=== PATIENT | male | born 1940 | race Caucasian/White ===

== ENCOUNTER 2020-08-17 11:25 | Emergency (ER) | payer MEDICARE, SELFPAY ==
[2020-08-17] VITALS (10 sets, daily range): BP systolic 141–194; BP diastolic 66–93; PULSE 61–90; RESP 14; TEMP 37.2; O2SAT 94–97
--- NOTE | 2020-08-17 12:02 | ED.HA ---
HPI - Headache General Chief Complaint: Headache Stated Complaint: lump in head Time Seen by Provider: 08/17/20 11:28 Source: patient and family Mode of arrival: Ambulatory Limitations: no limitations History of Present Illness HPI Narrative: 79M former smoker with history of renal cancer s/p nephrectomy 8-9 years ago presents with a mild ZUÑIGA and a painful lump on the back of his head for the past few days. The ZUÑIGA just started today, but the lump has been increasing in size over the past week or so. He denies any injury whatsoever in takes no blood thinners. He denies neurologic symptoms such as blurred vision, trouble with speech, balance, numbness, tingling or weakness of his extremities. He denies any specific provocation, palliation of his headache. He has taken no medications. MD Complaint: headache Onset (ago): hour(s) Onset description: gradual Location: diffuse Severity: moderate Quality: aching Relieving factors: nothing Exacerbating factors: none Context: occurred at rest Associated symptoms: none Treatments prior to arrival: none Related Data Allergies Allergy/AdvReac Type Severity Reaction Status Date / Time No Known Drug Allergies Allergy Verified 08/17/20 11:49 Review of Systems Constitutional Constitutional: Denies chills, Denies fatigue, Denies fever(s), Denies frequent falls, Reports headache(s), Denies lethargy and Denies weakness Eyes Eyes: Denies change in vision, Denies eye discharge, Denies irritation and Denies loss of vision ENT Ears, Nose, Mouth, and Throat: Denies change in voice, Denies dizziness, Reports headache(s), Denies neck pain, Denies sore throat and Denies throat swelling Cardiovascular Cardiovascular: Denies chest pain, Denies irregular heart rhythm, Denies lightheadedness, Denies palpitations, Denies dyspnea, Denies dyspnea on exertion and Denies orthopnea Respiratory Respiratory: Denies cough, Denies dyspnea, Denies dyspnea on exertion and Denies wheezing Gastrointestinal Gastrointestinal: Denies abdominal pain, Denies change in bowel habits, Denies diarrhea, Denies nausea and Denies vomiting Musculoskeletal Musculoskeletal: Denies neck pain and Denies numbness Integumentary/Breasts Skin/Breast: Denies pruritus, Denies erythema, Denies rash and Denies wounds Neurologic Neurologic: Denies behavioral changes, Denies confusion, Denies dizziness, Denies frequent falls, Reports headache(s), Denies loss of vision, Denies numbness and Denies weakness Psychiatric Psychiatric: Denies anxiety, Denies behavioral changes, Denies confusion, Denies depression, Denies homicidal ideation and Denies suicidal ideation Endocrine Endocrine: Denies fatigue, Denies flushing and Denies palpitations Hematologic/Lymphatic Hematologic/Lymphatic: Denies easy bruising Allergic/Immunologic Allergic/Immunologic: Denies urticaria, Denies throat swelling and Denies wheezing Patient History Social History Smoking Status: Former smoker Smoking Status: Former smoker alcohol intake frequency: 0-2 drinks per day Substance Use Type: does not use Exam Narrative Exam Narrative: [id number] year old patient appears stated age. Well-nourished, well-developed patient, in mild distress. HEAD: Atraumatic. Subtle lump on right occiput put, no erythema, fluctuance or induration EYES: Pupils equal round and reactive. Extraocular motions intact. No scleral icterus. No injection or drainage. ENT: Nose without bleeding, purulent drainage. Throat without erythema, tonsillar hypertrophy or exudate. Airway patent. NECK: Trachea midline. Non tender CARDIOVASCULAR: Regular rate and rhythm without murmurs, gallops, or rubs. RESPIRATORY: Clear to auscultation. Breath sounds equal bilaterally. No wheezes, rales, or rhonchi. GASTROINTESTINAL: Abdomen soft, non-tender, nondistended. EXTREMITIES: No edema or joint tenderness. BACK: Nontender without deformity or crepitance. No flank tenderness. NEURO: AOx3. SKIN: No rash or erythema of visible areas Initial Vital Signs Initial Vital Signs: Vital Signs Temperature 98.9 F 08/17/20 11:45 Pulse Rate 90 08/17/20 11:45 Respiratory Rate 14 08/17/20 11:45 Blood Pressure 162/76 H 08/17/20 11:45 Pulse Oximetry 97 08/17/20 11:45 Course Course Course Narrative: 1430 - call to Medical Oncology. Recommend consultation with surgery to obtain biopsy 1435 - call to Gen. Surgery (Horacio). No skull biopsy 1440 - call to IR at [facility]. Viewed images, they will not do this biopsy, recommend call to Neurosurgery 1500 - Prov Neurosurgery has viewed images and states this would go to IR and recommends transfer to their ED for multisystem approach to diagnosis 1530 - call to [facility] Medicine. No indication for transfer/admission, few beds remain. Recommends call to Medical Oncology 1610 - call back to Medical Oncology at [facility] ([facility]) and he will accept patient as referral, recommends DC with contact info Orders Ordered: ED Orders 08/17/20 12:21 CT head/brain wo con Stat 08/17/20 12:58 CT chest abd pel w con Stat 08/17/20 13:05 Complete Blood Count AUTO DIFF Stat Comprehensive Metabolic Panel Stat 08/17/20 14:10 Urine Microscopic Stat 08/17/20 16:14 COVID19 -Nasal swab/Pre-Proc Stat Discontinued Medications Sodium Chloride (Normal Saline 0.9%) 1,000 mls @ 125 mls/hr IV CONT ABRIL Last Infusion: 08/17/20 16:30 Dose: 0 mls/hr Documented by: Admin: 08/17/20 13:45 Dose: 125 mls/hr Documented by: GIACOMO Vital Signs Vital signs: Vital Signs - 8 hr 08/17/20 11:45 08/17/20 13:10 08/17/20 13:30 Temperature 98.9 F Pulse Rate 90 68 61 Respiratory Rate 14 14 Blood Pressure 162/76 H 141/66 H Pulse Oximetry 97 96 94 08/17/20 14:10 08/17/20 14:30 08/17/20 14:44 Temperature Pulse Rate 73 68 68 Respiratory Rate 14 Blood Pressure 194/90 H 176/84 H 190/93 H Pulse Oximetry 96 97 96 08/17/20 15:00 08/17/20 15:30 08/17/20 16:00 Temperature Pulse Rate 63 62 66 Respiratory Rate Blood Pressure 189/85 H Pulse Oximetry 94 96 96 08/17/20 16:01 Temperature Pulse Rate 63 Respiratory Rate Blood Pressure 172/84 H Pulse Oximetry 96 MDM - Headache Lab Data Result diagrams: 08/17/20 13:05 08/17/20 13:05 Labs: Lab Results 08/17/20 08/17/20 08/17/20 Range/Units 13:05 13:05 14:10 WBC 8.8 (4.5-11.0) X10^3/uL RBC 4.63 (4.5-5.9) X10^6/uL Hgb 13.8 (13.5-17.5) g/dL Hct 41.5 (41-53) % MCV 89.7 (80-100) fL MCH 29.8 (26-34) PG MCHC 33.3 (30-36) % RDW 13.2 (11.6-14.8) % Plt Count 300 (150-400) X10^3/uL Neut % (Auto) 58.5 (50-75) % Lymph % (Auto) 22.1 L (25-40) % [place] % (Auto) 15.8 H (3-14) % Eos % (Auto) 2.8 (2-4) % Baso % (Auto) 0.8 (0-2) % Neut # (Auto) 5100 (7150-2450) /uL Lymph # (Auto) 1900 (2929-5111) /uL [place] # (Auto) 1400 H (0-900) /uL Eos # (Auto) 200 (0-450) /uL Baso # (Auto) 100 (0-100) /uL Sodium 137 (137-145) mmol/L Potassium 4.2 (3.4-5.1) mmol/L Chloride 101 (98-107) mmol/L Carbon Dioxide 28 (22-32) mmol/L BUN 26 H (9-20) mg/dL Creatinine 1.11 (0.66-1.25) mg/dL Estimated GFR > 60.0 (>60) mL/min BUN/Creatinine Ratio 23.4 H (6-22) Glucose 172 H (80-110) mg/dL Calcium 11.1 H (8.4-10.2) mg/dL Total Bilirubin 0.4 (0.2-1.3) mg/dL AST 42 (17-59) IU/L ALT 28 (<50) IU/L Alkaline Phosphatase 86 (38-126) U/L Total Protein 8.9 H (6.3-8.2) g/dL Albumin 4.1 (3.5-5.0) g/dL Globulin 4.8 H (1.7-4.1) g/dL Albumin/Globulin Ratio 0.9 L (1.0-2.8) Urine RBC 0-1/hpf (0-5/HPF) Urine WBC None seen (0-5/HPF) Calcium Oxalate Crystal Few H Urine Bacteria Occasional (0-1) (None) Ur Culture Indicated? Cult not indicated SARS-CoV-2 (PCR) (Negative) 08/17/20 Range/Units 16:14 WBC (4.5-11.0) X10^3/uL RBC (4.5-5.9) X10^6/uL Hgb (13.5-17.5) g/dL Hct (41-53) % MCV (80-100) fL MCH (26-34) PG MCHC (30-36) % RDW (11.6-14.8) % Plt Count (150-400) X10^3/uL Neut % (Auto) (50-75) % Lymph % (Auto) (25-40) % [place] % (Auto) (3-14) % Eos % (Auto) (2-4) % Baso % (Auto) (0-2) % Neut # (Auto) (3744-0460) /uL Lymph # (Auto) (8460-6869) /uL [place] # (Auto) (0-900) /uL Eos # (Auto) (0-450) /uL Baso # (Auto) (0-100) /uL Sodium (137-145) mmol/L Potassium (3.4-5.1) mmol/L Chloride (98-107) mmol/L Carbon Dioxide (22-32) mmol/L BUN (9-20) mg/dL Creatinine (0.66-1.25) mg/dL Estimated GFR (>60) mL/min BUN/Creatinine Ratio (6-22) Glucose (80-110) mg/dL Calcium (8.4-10.2) mg/dL Total Bilirubin (0.2-1.3) mg/dL AST (17-59) IU/L ALT (<50) IU/L Alkaline Phosphatase (38-126) U/L Total Protein (6.3-8.2) g/dL Albumin (3.5-5.0) g/dL Globulin (1.7-4.1) g/dL Albumin/Globulin Ratio (1.0-2.8) Urine RBC (0-5/HPF) Urine WBC (0-5/HPF) Calcium Oxalate Crystal Urine Bacteria (None) Ur Culture Indicated? SARS-CoV-2 (PCR) Negative (Negative) Urine Dip Bedside Urine Glucose Negative Bedside Urine Bilirubin - Negative Bedside Urine Ketone - Negative Urine Specific [place] 1.020 Bedside Urine Occult Blood +/- Bedside Urine pH 6 Bedside Urine Protein + 30 Bedside Urine Urobilinogen - Negative Bedside Urine Nitrite - Negative Bedside Urine Leukocytes - Negative Esterase Imaging Data CT scan - head: Radiologist's Impression: Chart Viewer Diagnostics DATE TYPE STATUS REF RANGE/AUTHOR Hx Today 12:58 Riley Rodriguez Today 12:21 Rachelle Hernandez Thomas 79, M1940 [facility], Main ED R01 112.491kg Headache Search Chart No Data to Display No Data to Display No Data to Display Today 14:10 Nicanor Mccarthy M [address] Scan ReportSigned Patient: Nicanor MccarthyMR#: [id number]: 1940cct:[id number]/Sex: 79 / MDate of Service: 08/17/20Loc: EDAccession Number: [id number] Procedure: CT head/brain wo con Ordering Provider: Stephen Bruno D.O. PROCEDURE: CT HEAD/BRAIN WO CON INDICATIONS: head lump TECHNIQUE: Noncontrast 4.5 mm thick angled axial sections acquired from the foramen magnum to the vertex, with coronal and sagittal reformats. For radiation dose reduction, the following was used: automated exposure control, adjustment of mA and/or kV according to patient size. COMPARISON: None. FINDINGS: Image quality: Excellent. CSF spaces: Basal cisterns are patent. No extra-axial fluid collections. The ventricles are symmetric in size and shape. Brain: No intracranial bleeds or masses. There is cerebral volume loss for age, with resultant ventricular and sulcal prominence. There are periventricular and deep white matter chronic small vessel ischemic changes. There is intracranial internal carotid artery and vertebral artery atherosclerosis. Skull and face: There is a 3.4 x 7.0 centimeter enhancing mass involving the right occipital bone with associated osteolysis and periosteal reaction . Multiple lytic lesions are scattered throughout the calvarium. Lesion extends into the intracranial cavity and produces mild mass effect on the posterior-lateral right occipital lobe. Sinuses: Visualized sinuses and mastoids are clear. IMPRESSION: 1. 3.4 x 7.0 centimeter lytic right occipital bone mass with associated periosteal reaction corresponds to clinically palpable lump. Multiple small lytic lesions are scattered throughout the care of the area. 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 2. Right occipital bone mass extends into the intracranial cavity and produces mild mass effect on the right occipital lobe. Dictated by: Rachelle Hernandez MD, PhD on 08/17/2020 at 12:30 Approved by: Rachelle Hernandez MD, PhD on 08/17/2020 at 12:36 CT scan - chest: Radiologist's Impression: [address] [id number] Scan ReportSigned Patient: Nicanor MccarthyMR#: [id number]: 1940cct:[id number]/Sex: 79 / MDate of Service: 08/17/20Loc: EDAccession Number: [id number] Procedure: CT chest abd pel w con Ordering Provider: Stephen Bruno D.O. PROCEDURE: CT CHEST ABD PEL W CON INDICATIONS: possible metastatic disease TECHNIQUE: After the administration of intravenous contrast, 5 mm thick sections acquired from the lung apices to the symphysis. 5 mm coronal and sagittal reformats were performed, with additional 7 mm MIP reformats through the lungs. For radiation dose reduction, the following was used: automated exposure control, adjustment of mA and/or kV according to patient size. COMPARISON: [facility], CT, CT HEAD/BRAIN WO CON, 08/17/2020, 12:25. FINDINGS: Image quality: Excellent. CHEST: Lungs and pleura: There are multiple lung nodules bilaterally. Systems Coordinator nodules are listed in the following: Nodule 1: 5 mm; lingula; series 2, image 173. Nodule 2: 10 mm; lingula; series 2, image 176. Nodule 3: 5 mm; RML; series 2, image 177. Nodule 4: 6 mm; RLL; series 2, image 183. Nodule 5: 6 mm; LLL; series 2, image 233. Moderate emphysema. No acute airspace opacities. No pleural effusions or pneumothorax. Central and peripheral airways appear patent and normal in caliber. Mediastinum: Heart size is normal. Moderate coronary artery calcification. No pericardial effusion. Borderline sized mediastinal lymph nodes are noted. For example, there is a 1.0 by 1.4 cm left paratracheal lymph node above the aortic arch. Thoracic aorta and central pulmonary arteries are normal in size. Esophagus is normal in caliber. Small hiatal hernia. Chest wall: No axillary or supraclavicular adenopathy by size criteria. Thyroid gland is normal. There is gynecomastia.. ABDOMEN: Solid organs: Mild hepatic steatosis. Liver is normal in size and enhancement. Gallbladder is normal. Biliary system is non dilated. Pancreas enhances normally. Spleen is normal in size and enhancement. There is left adrenal thickening. 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 Left kidney is normal size and enhancement, without hydronephrosis. There is a 4 mm stone in the superior pole of the left kidney. Peritoneum and bowel: There are numerous colonic diverticula. Mild stranding in sigmoid colon around a diverticulum, compatible with mild diverticulitis. No findings to suggest diverticular perforation or abscess. Bowel loops demonstrate normal wall thickness and caliber. No free fluid or air. Nodes and vessels: No retroperitoneal or mesenteric adenopathy by size criteria. Mild infrarenal abdominal aortic aneurysm measuring 4.2 cm in diameter. Mild atherosclerosis. Miscellaneous: No ventral hernias. PELVIS: Genitourinary: Bladder wall thickness is normal. Miscellaneous: No inguinal hernias or adenopathy. Bones: No suspicious bony lesions. There is a Schmorl's node in the inferior endplate of L1. Bilateral pars defects at L5. There is grade 1 anterolisthesis of L5 on S1. Severe degenerative disc disease at L5-S1. No vertebral body compression fractures. IMPRESSION: 1. There are multiple pulmonary nodules bilaterally. Differential diagnosis include metastatic disease, inflammatory or infectious nodules. In this patient with suspected metastatic disease, PET-CT may be helpful. 2. A borderline enlarged mediastinal lymph node is present, indeterminate. 3. Moderate emphysema. 4. Diverticulosis. There is mild diverticulitis of the sigmoid colon. 5. There is left adrenal thickening but no discrete mass. 6. Infrarenal abdominal aortic aneurysm measuring 4.2 cm. 7. Right nephrectomy and adrenalectomy. Dictated by: Julio Rodriguez M.D. on 08/17/2020 at 14:18 Approved by: Julio Rodriguez M.D. on 08/17/2020 at 14:41 Discharge Plan Departure Patient Disposition: Home Clinical Impression: Skull lesion Headache Qualifiers: Headache chronicity pattern: acute headache Intractability: not intractable Instructions: DI for Headache Activity Restrictions/Additional Instructions: *You have been diagnosed with [skull lesion concerning for metastatic disease.] *What to do: *Take medications as directed: Tylenol or Motrin for pain * please call medical oncology tomorrow morning, let them know that you were seen in the emergency department and I spoke with Dr. Gaitan who wants to see you and follow-up *Return to ER if you should have any new, worsening or concerning symptoms, such as [worsening headache, confusion, blurred vision, trouble with speech, balance or other bothersome symptoms] Referrals: Vince Gaitan MD [Physician] -
--- NOTE | 2020-08-17 12:21 | DI.CT.S_ITS ---
PROCEDURE: CT HEAD/BRAIN WO CON INDICATIONS: head lump TECHNIQUE: Noncontrast 4.5 mm thick angled axial sections acquired from the foramen magnum to the vertex, with coronal and sagittal reformats. For radiation dose reduction, the following was used: automated exposure control, adjustment of mA and/or kV according to patient size. COMPARISON: None. FINDINGS: Image quality: Excellent. CSF spaces: Basal cisterns are patent. No extra-axial fluid collections. The ventricles are symmetric in size and shape. Brain: No intracranial bleeds or masses. There is cerebral volume loss for age, with resultant ventricular and sulcal prominence. There are periventricular and deep white matter chronic small vessel ischemic changes. There is intracranial internal carotid artery and vertebral artery atherosclerosis. Skull and face: There is a 3.4 x 7.0 centimeter enhancing mass involving the right occipital bone with associated osteolysis and periosteal reaction . Multiple lytic lesions are scattered throughout the calvarium. Lesion extends into the intracranial cavity and produces mild mass effect on the posterior-lateral right occipital lobe. Sinuses: Visualized sinuses and mastoids are clear. IMPRESSION: 1. 3.4 x 7.0 centimeter lytic right occipital bone mass with associated periosteal reaction corresponds to clinically palpable lump. Multiple small lytic lesions are scattered throughout the care of the area. 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 2. Right occipital bone mass extends into the intracranial cavity and produces mild mass effect on the right occipital lobe. Dictated by: Rachelle Hernandez MD, PhD on 08/17/2020 at 12:30 Approved by: Rachelle Hernandez MD, PhD on 08/17/2020 at 12:36
--- NOTE | 2020-08-17 12:58 | DI.CT.S_ITS ---
PROCEDURE: CT CHEST ABD PEL W CON INDICATIONS: possible metastatic disease TECHNIQUE: After the administration of intravenous contrast, 5 mm thick sections acquired from the lung apices to the symphysis. 5 mm coronal and sagittal reformats were performed, with additional 7 mm MIP reformats through the lungs. For radiation dose reduction, the following was used: automated exposure control, adjustment of mA and/or kV according to patient size. COMPARISON: [facility], CT, CT HEAD/BRAIN WO CON, 08/17/2020, 12:25. FINDINGS: Image quality: Excellent. CHEST: Lungs and pleura: There are multiple lung nodules bilaterally. Welder Production Line Combination nodules are listed in the following: Nodule 1: 5 mm; lingula; series 2, image 173. Nodule 2: 10 mm; lingula; series 2, image 176. Nodule 3: 5 mm; RML; series 2, image 177. Nodule 4: 6 mm; RLL; series 2, image 183. Nodule 5: 6 mm; LLL; series 2, image 233. Moderate emphysema. No acute airspace opacities. No pleural effusions or pneumothorax. Central and peripheral airways appear patent and normal in caliber. Mediastinum: Heart size is normal. Moderate coronary artery calcification. No pericardial effusion. Borderline sized mediastinal lymph nodes are noted. For example, there is a 1.0 by 1.4 cm left paratracheal lymph node above the aortic arch. Thoracic aorta and central pulmonary arteries are normal in size. Esophagus is normal in caliber. Small hiatal hernia. Chest wall: No axillary or supraclavicular adenopathy by size criteria. Thyroid gland is normal. There is gynecomastia.. ABDOMEN: Solid organs: Mild hepatic steatosis. Liver is normal in size and enhancement. Gallbladder is normal. Biliary system is non dilated. Pancreas enhances normally. Spleen is normal in size and enhancement. There is left adrenal thickening. 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 Left kidney is normal size and enhancement, without hydronephrosis. There is a 4 mm stone in the superior pole of the left kidney. Peritoneum and bowel: There are numerous colonic diverticula. Mild stranding in sigmoid colon around a diverticulum, compatible with mild diverticulitis. No findings to suggest diverticular perforation or abscess. Bowel loops demonstrate normal wall thickness and caliber. No free fluid or air. Nodes and vessels: No retroperitoneal or mesenteric adenopathy by size criteria. Mild infrarenal abdominal aortic aneurysm measuring 4.2 cm in diameter. Mild atherosclerosis. Miscellaneous: No ventral hernias. PELVIS: Genitourinary: Bladder wall thickness is normal. Miscellaneous: No inguinal hernias or adenopathy. Bones: No suspicious bony lesions. There is a Schmorl's node in the inferior endplate of L1. Bilateral pars defects at L5. There is grade 1 anterolisthesis of L5 on S1. Severe degenerative disc disease at L5-S1. No vertebral body compression fractures. IMPRESSION: 1. There are multiple pulmonary nodules bilaterally. Differential diagnosis include metastatic disease, inflammatory or infectious nodules. In this patient with suspected metastatic disease, PET-CT may be helpful. 2. A borderline enlarged mediastinal lymph node is present, indeterminate. 3. Moderate emphysema. 4. Diverticulosis. There is mild diverticulitis of the sigmoid colon. 5. There is left adrenal thickening but no discrete mass. 6. Infrarenal abdominal aortic aneurysm measuring 4.2 cm. 7. Right nephrectomy and adrenalectomy. Dictated by: Julio Rodriguez M.D. on 08/17/2020 at 14:18 Approved by: Julio Rodriguez M.D. on 08/17/2020 at 14:41
[2020-08-17 13:19] LABS: Basophils Absolute Auto 100 /uL (0-100); Basophils Percent Auto 0.8 % (0-2); Hemoglobin 13.8 g/dL (13.5-17.5); Lymphocytes Absolute Auto 1900 /uL (1100-4500); Monocytes Absolute Auto 1400 /uL (0-900); White Blood Cell Count 8.8 X10^3/uL (4.5-11.0)
[2020-08-17 13:26] LABS: Add Manual Diff / Slide Review NO; Eosinophils Absolute Auto 200 /uL (0-450); Eosinophils Percent Auto 2.8 % (2-4); Hematocrit 41.5 % (41-53); Lymphocytes Percent Auto 22.1 % (25-40); Mean Corpuscular HGB Conc 33.3 % (30-36); Mean Corpuscular Hemoglobin 29.8 PG (26-34); Mean Corpuscular Volume 89.7 fL (80-100); Monocytes Percent Auto 15.8 % (3-14); Neutrophils Absolute Auto 5100 /uL (1500-7000); Neutrophils Percent Auto 58.5 % (50-75); Platelet Count 300 X10^3/uL (150-400); Red Blood Cell Count 4.63 X10^6/uL (4.5-5.9); Red Cell Distribution Width 13.2 % (11.6-14.8)
[2020-08-17 13:31] LABS: Alanine Aminotransferase 28 IU/L (<50); Albumin 4.1 g/dL (3.5-5.0); Albumin Globulin Ratio 0.9 (1.0-2.8); Alkaline Phosphatase 86 U/L (38-126); Aspartate Aminotransferase 42 IU/L (17-59); BUN Creatinine Ratio 23.4 (6-22); Bilirubin Total 0.4 mg/dL (0.2-1.3); Blood Urea Nitrogen 26 mg/dL (9-20); Calcium 11.1 mg/dL (8.4-10.2); Carbon Dioxide 28 mmol/L (22-32); Chloride 101 mmol/L (98-107); Estimated Glomerular Filt Rate > 60.0 mL/min (>60); Globulin 4.8 g/dL (1.7-4.1); Glucose 172 mg/dL (80-110); HEMOLYSIS 33 (0-50); Sodium 137 mmol/L (137-145); Total Protein 8.9 g/dL (6.3-8.2)
[2020-08-17 13:33] LABS: Potassium 4.2 mmol/L (3.4-5.1)
[2020-08-17] MEDS: SODIUM CHLORIDE 0.9% 1,000 ML 125 ML IV (13:45)
[2020-08-17 14:35] LABS: WBC Urine None Seen (0-5/HPF)
[2020-08-17 14:45] LABS: Bacteria Urine Occasional (0-1); Calcium Oxalate Crystals Urine Few; Culture Indicated Urine Cult Not Indicated; RBC Urine 0-1/HPF (0-5/HPF)
[2020-08-17 16:37] LABS: COVID19 -Nasal RAPID Negative (Negative)
--- NOTE | 2020-08-20 16:02 | PC.NURSE ---
Paty called the ED. Pt has been unable to get timely PCP appointment to arrange MRI for SCC / Neuro surgery and pending cancer care. I called call center and they arranged for appointment Sunday @ 1500 w/ Dr. Garcia. I called paty to relay and she verbalized time / date of appointment.
== END 2020-08-17 16:34 | disposition home or self-care (01) ==
PROVIDERS: Emergency Provider Emergency Medicine
DX: M89.9 Disorder of bone, unspecified (principal); R51.9 Headache, unspecified; Z20.828 Contact with and (suspected) exposure to other viral communicable diseases
CPT/HCPCS: 36415; 70450; 71260; 74177; 80053; 81003; 81015; 85025; 87635; 96360; 96361; 99284; C9803

== ENCOUNTER → 2020-08-24 16:13 | Outpatient (CLI) | payer MEDICARE, SELFPAY ==
[2020-08-24 17:38] LABS: BUN Creatinine Ratio 18.1 (6-22); Blood Urea Nitrogen 23 mg/dL (9-20); Calcium 12.1 mg/dL (8.4-10.2); Carbon Dioxide 27 mmol/L (22-32); Chloride 103 mmol/L (98-107); Glucose 108 mg/dL (80-110); HEMOLYSIS < 15 (0-50); Potassium 4.4 mmol/L (3.4-5.1); Sodium 139 mmol/L (137-145)
== END ==
PROVIDERS: PCP Internal Medicine; Referring Provider Internal Medicine; Visit Provider Internal Medicine
DX: E83.52 Hypercalcemia (principal)
CPT/HCPCS: 36415; 80048

== ENCOUNTER → 2020-08-25 06:40 | Outpatient (CLI) | payer MEDICARE, SELFPAY ==
--- NOTE | 2020-08-25 | DI.MRI.S_ITS ---
PROCEDURE: MR HEAD/BRAIN WO/W CON INDICATIONS: Personal history of other malignant neoplasm of ki TECHNIQUE: Noncontrast axial T1 spin echo, axial T2 fast spin echo, sagittal and axial FLAIR, coronal T2 fast spin echo, axial gradient echo, axial diffusion and ADC through the brain. After the administration of contrast, axial and coronal T1 spin echo with fat saturation through the brain. COMPARISON: [facility], CT, CT HEAD/BRAIN WO CON, 08/17/2020, 12:25. FINDINGS: Image quality: Excellent. CSF spaces: Basal cisterns are patent. No extra-axial fluid collections. There is mass effect on the posterior horn of the right lateral ventricle secondary to a calvarial metastatic lesion with extension into the intracranial cavity. Ventricles are otherwise normal in size and shape. Brain: No midline shift. No intracranial bleeds. An enhancing calvarial based metastatic lesion in the right occipital region has a intracranial component, extra-axial in location, resulting in mass effect on the adjacent cortex and posterior horn of right lateral ventricle. No intra-axial metastatic lesions. There is cerebral volume loss for age. There is mild periventricular white matter chronic small vessel ischemic change. The brainstem appears normal. Diffusion-weighted images demonstrate no acute ischemic insults. No chronic ischemic insults. Normal intravascular flow voids are present. 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 The largest single lesion involves the right occipital bone, with a lytic permeative destruction of the bone and periosteal reaction seen on CT and associated superficial component involving the subgaleal tissues and extension into the intracranial cavity, resulting in mild mass effect on the posterior temporal region and occipital horn of the right lateral ventricle. This mass measures approximately 4.9 by 3.6 x 6.5 cm. The other calvarial metastatic lesions are confined to the calvarium. Orbits appear normal. Sinuses: Sinuses and mastoids appear clear. IMPRESSION: 1. No evidence of intra-axial metastatic disease. 2. Multiple calvarial based metastatic lesions, the largest of which is centered in the right occipital bone. This particular lesion is quite large, and extends outside of the bone both superficially and intracranially, measuring 4.9 x 3.6 x 6.5 cm. It results in mass effect on the adjacent cerebral cortex and posterior horn of the right lateral ventricle. 3. No evidence of acute strokes or hemorrhages. Mild small vessel ischemic change. Dictated by: Tray Pham M.D. on 08/25/2020 at 8:23 Approved by: Tray Pham M.D. on 08/25/2020 at 8:33
== END ==
PROVIDERS: PCP Internal Medicine; Referring Provider Urology; Visit Provider Urology
DX: C79.51 Secondary malignant neoplasm of bone (principal); Z85.528 Personal history of other malignant neoplasm of kidney
CPT/HCPCS: 70553

== ENCOUNTER 2020-09-07 10:44 | Emergency (ER) | payer MEDICARE, SELFPAY ==
[2020-09-07] VITALS (13 sets, daily range): BP systolic 143–176; BP diastolic 67–86; PULSE 63–82; RESP 14–32; TEMP 36.9; O2SAT 92–96; BMI 33.9
--- NOTE | 2020-09-07 10:58 | DI.RAD.S_ITS ---
PROCEDURE: XR CHEST 1V INDICATIONS: Shortness of breath TECHNIQUE: One view of the chest was acquired. COMPARISON: None. FINDINGS: Surgical changes and devices: None. Lungs and pleura: There is blunting of the costophrenic angles bilaterally as well as increased pulmonary vascularity. Mediastinum: Mediastinal contours appear normal. Heart size is enlarged. Bones and chest wall: No suspicious bony lesions. Overlying soft tissues appear unremarkable. IMPRESSION: 1. Cardiomegaly with trace effusions and increased vascularity suggestive of edema. Dictated by: Ginna Bullock M.D. on 09/07/2020 at 11:20 Approved by: Ginna Bullock M.D. on 09/07/2020 at 11:31
--- NOTE | 2020-09-07 11:07 | ED.GENADULT ---
HPI - General Adult General Chief complaint: Shortness of Breath/Dyspnea Stated complaint: SOB, panting, wheezing, post-brain op Time Seen by Provider: 09/07/20 10:57 Source: patient Mode of arrival: Ambulatory Limitations: no limitations History of Present Illness HPI narrative: Patient is a 79-year-old male. Was just discharged from an outside facility yesterday after he had surgery to remove a tumor in his skull. He does have a history of COPD. While inpatient he was getting albuterol but he does have Symbicort at home. Over the past 24 hours he has felt somewhat more short of breath. Does have a slight headache but this is not new. There is also reports of a fever last evening but not this morning. He has been taking Tylenol. No nausea vomiting. No vision changes. Does have slight chest pain. No lower extremity swelling. Was told to come in for evaluation by his operative provider. Related Data Home Medications Medication Instructions Recorded Confirmed atorvastatin 40 mg tablet 40 mg PO DAILY 08/24/20 08/25/20 levothyroxine 125 mcg tablet 125 mcg PO DAILY 08/24/20 08/25/20 losartan 50 mg tablet 50 mg PO DAILY 08/24/20 08/25/20 metoprolol tartrate 25 mg tablet 25 mg PO DAILY 08/24/20 08/25/20 tamsulosin 0.4 mg capsule 0.4 mg PO BID cap 08/24/20 08/25/20 ascorbic acid (vitamin C) [Vitamin 500 mg PO DAILY 08/25/20 08/25/20 C] aspirin 81 mg PO DAILY 08/25/20 08/25/20 budesonide-formoterol [Symbicort] 2 puff INHALATION BID 08/25/20 08/25/20 calcium 500 mg DAILY 08/25/20 08/25/20 cholecalciferol (vitamin D3) 50 mcg DAILY 08/25/20 08/25/20 [Vitamin D3] coenzyme Q10 [CoQ-10] 100 mg PO DAILY 08/25/20 08/25/20 diphenhydramine-acetaminophen 1 tab PO BEDTIME PRN 08/25/20 08/25/20 [Excedrin PM] fiber 2 cap PO BID 08/25/20 08/25/20 glucosamine sulfate [Glucosamine] 1,000 mg PO DAILY 08/25/20 08/25/20 magnesium 200 mg PO DAILY 08/25/20 08/25/20 milk thistle 200 mg PO DAILY 08/25/20 08/25/20 multivitamin 1 cap DAILY 08/25/20 08/25/20 omega-3 fatty acids-vitamin E 1 cap DAILY 08/25/20 08/25/20 [Fish Oil] vitamin B complex [B Complex] 1 tab PO DAILY 08/25/20 08/25/20 vitamin B00-sdafm acid 1 tab PO DAILY 08/25/20 08/25/20 vitamin E 400 unit PO DAILY 08/25/20 08/25/20 Previous Rx's Medication Instructions Recorded albuterol sulfate 2 puff INHALATION Q4-6H PRN #18 g 09/07/20 furosemide [Lasix] 20 mg PO DAILY #7 tab 09/07/20 Allergies Allergy/AdvReac Type Severity Reaction Status Date / Time No Known Drug Allergies Allergy Verified 09/07/20 11:25 Review of Systems Constitutional Constitutional: Denies chills, Denies fatigue, Reports fever(s) and Reports headache(s) Eyes Eyes: Denies change in vision ENT Ears, Nose, Mouth, and Throat: Reports headache(s) and Denies sore throat Cardiovascular Cardiovascular: Reports chest pain and Reports dyspnea Respiratory Respiratory: Reports dyspnea Gastrointestinal Gastrointestinal: Denies abdominal pain, Denies nausea and Denies vomiting Genitourinary Genitourinary: Denies dysuria Genitourinary: Denies dysuria Musculoskeletal Musculoskeletal: Denies myalgias Integumentary/Breasts Skin/Breast: Denies rash Neurologic Neurologic: Denies behavioral changes and Reports headache(s) Psychiatric Psychiatric: Denies behavioral changes Endocrine Endocrine: Denies fatigue Hematologic/Lymphatic On Anticoagulants: No Allergic/Immunologic Allergic/Immunologic: Denies urticaria Patient History Medical History AAA (abdominal aortic aneurysm) Acquired hypothyroidism Essential hypertension Mixed hyperlipidemia Personal history of stroke with current residual effects Renal cell carcinoma (~2009) Surgical History (Updated 08/25/20 @ 12:55 by Vince Gaitan MD) S/p nephrectomy (~2009) S/P shoulder surgery S/P wrist surgery Family History (Updated 08/24/20 @ 15:36 by Per Garcia MD) Mother Diabetes mellitus Father Heart disease Social History Smoking Status: Former smoker Smoking Status: Former smoker alcohol intake frequency: 0-2 drinks per day Substance Use Type: does not use Exam Initial Vital Signs Initial Vital Signs: Vital Signs Temperature 98.5 F 09/07/20 10:47 Pulse Rate 82 09/07/20 10:47 Respiratory Rate 15 09/07/20 10:47 Blood Pressure 149/71 H 09/07/20 10:47 Pulse Oximetry 95 09/07/20 10:47 Const General: cooperative and comfortable Limitations: mental status not altered HENNM Head: other (Surgical incision with chele right occipital region.) Eyes General: appearance normal, both eyes and all related structures Resp Effort & Inspection: normal respiratory effort Auscultation: clear to auscultation bilaterally Cardio Rate: regular rate Rhythm: regular rhythm GI Inspection: non-distended Palpation: soft Skin Other: Surgical incision with chele right occipital region without drainage for signs of infection Neuro General: patient alert, patient awake and patient oriented x3 Cognition: normal cognition Speech: speech normal Extrem General: normal to inspection and capillary refill normal Psych Appearance: grossly normal and well kempt Course Orders Ordered: ED Orders 09/07/20 10:58 XR chest 1V Stat 09/07/20 10:59 RT Consult Eval and Treat Now 09/07/20 11:00 Complete Blood Count AUTO DIFF Stat Comprehensive Metabolic Panel Stat Lipase Stat NT-proBNP (BNP-Adult 18+) Stat Troponin & CK Cardiac Panel Stat 09/07/20 11:02 EKG-12 Lead Stat 09/07/20 11:15 COVID19 -Nasal swab/Pre-Proc Stat 09/07/20 11:30 Urine Microscopic Stat 09/07/20 11:57 CT angio chest PE protocol Stat 09/07/20 13:12 Troponin I Stat Discontinued Medications Acetaminophen (Acetaminophen 325 Mg Tablet) 650 mg PO NOW ONE Stop: 09/07/20 11:36 Last Admin: 09/07/20 11:41 Dose: 650 mg Documented by: DEMETRICE Albuterol (Albuterol 2.5 Mg/3 Ml Neb (Adult)) 2.5 mg INH NOW ONE Stop: 09/07/20 12:42 Last Admin: 09/07/20 12:54 Dose: 2.5 mg Documented by: EMILY Vital Signs Vital signs: Vital Signs - 8 hr 09/07/20 10:47 09/07/20 10:53 09/07/20 11:00 Temperature 98.5 F Pulse Rate 82 82 78 Respiratory Rate 15 31 H Blood Pressure 149/71 H 149/71 H 143/67 H Pulse Oximetry 95 96 94 09/07/20 11:30 09/07/20 11:31 09/07/20 12:08 Temperature Pulse Rate 74 73 Respiratory Rate 32 H 24 Blood Pressure 145/71 H Pulse Oximetry 94 92 92 09/07/20 12:30 09/07/20 13:00 09/07/20 13:03 Temperature Pulse Rate 63 70 67 Respiratory Rate 23 14 22 Blood Pressure 158/78 H Pulse Oximetry 92 95 96 09/07/20 13:12 09/07/20 13:30 09/07/20 14:05 Temperature Pulse Rate 67 64 74 Respiratory Rate 24 24 Blood Pressure 176/80 H 161/86 H Pulse Oximetry 94 94 94 09/07/20 14:30 Temperature Pulse Rate 64 Respiratory Rate 25 H Blood Pressure Pulse Oximetry 93 Medical Decision Making Medical Records Medical records reviewed: Yes I reviewed the patient's medical records. Lab Data Lab results reviewed: Yes I reviewed the patient's lab results. Result diagrams: 09/07/20 11:00 09/07/20 11:00 Labs: Lab Results 09/07/20 09/07/20 09/07/20 Range/Units 11:00 11:00 11:15 WBC 11.7 H (4.5-11.0) X10^3/uL RBC 4.23 L (4.5-5.9) X10^6/uL Hgb 12.8 L (13.5-17.5) g/dL Hct 37.9 L (41-53) % MCV 89.7 (80-100) fL MCH 30.3 (26-34) PG MCHC 33.8 (30-36) % RDW 13.4 (11.6-14.8) % Plt Count 269 (150-400) X10^3/uL Neut % (Auto) 69.5 (50-75) % Lymph % (Auto) 15.9 L (25-40) % [place] % (Auto) 13.2 (3-14) % Eos % (Auto) 0.9 L (2-4) % Baso % (Auto) 0.5 (0-2) % Neut # (Auto) 8200 H (2097-0928) /uL Lymph # (Auto) 1900 (4081-5022) /uL [place] # (Auto) 1600 H (0-900) /uL Eos # (Auto) 100 (0-450) /uL Baso # (Auto) 100 (0-100) /uL Sodium 139 (137-145) mmol/L Potassium 3.7 (3.4-5.1) mmol/L Chloride 106 (98-107) mmol/L Carbon Dioxide 25 (22-32) mmol/L BUN 27 H (9-20) mg/dL Creatinine 1.18 (0.66-1.25) mg/dL Estimated GFR 59.9 L (>60) mL/min BUN/Creatinine Ratio 22.9 H (6-22) Glucose 118 H (80-110) mg/dL Calcium 10.3 H (8.4-10.2) mg/dL Total Bilirubin 0.5 (0.2-1.3) mg/dL AST 72 H (17-59) IU/L ALT 74 H (<50) IU/L Alkaline Phosphatase 101 (38-126) U/L Total Creatine Kinase 27 L (55-170) U/L CK-MB (CK-2) TNP CK-MB (CK-2) Rel Index TNP Troponin I 0.027 (0.01-0.034) ng/mL NT-Pro-B Natriuret Pep 3580 H (<450) pg/mL Total Protein 8.0 (6.3-8.2) g/dL Albumin 3.4 L (3.5-5.0) g/dL Globulin 4.6 H (1.7-4.1) g/dL Albumin/Globulin Ratio 0.7 L (1.0-2.8) Lipase 301 H (23-300) U/L Urine RBC (0-5/HPF) Urine WBC (0-5/HPF) Urine Bacteria (None) Hyaline Casts (None) Ur Culture Indicated? SARS-CoV-2 (PCR) Negative (Negative) 09/07/20 09/07/20 Range/Units 11:30 13:12 WBC (4.5-11.0) X10^3/uL RBC (4.5-5.9) X10^6/uL Hgb (13.5-17.5) g/dL Hct (41-53) % MCV (80-100) fL MCH (26-34) PG MCHC (30-36) % RDW (11.6-14.8) % Plt Count (150-400) X10^3/uL Neut % (Auto) (50-75) % Lymph % (Auto) (25-40) % [place] % (Auto) (3-14) % Eos % (Auto) (2-4) % Baso % (Auto) (0-2) % Neut # (Auto) (5440-5634) /uL Lymph # (Auto) (2521-4035) /uL [place] # (Auto) (0-900) /uL Eos # (Auto) (0-450) /uL Baso # (Auto) (0-100) /uL Sodium (137-145) mmol/L Potassium (3.4-5.1) mmol/L Chloride (98-107) mmol/L Carbon Dioxide (22-32) mmol/L BUN (9-20) mg/dL Creatinine (0.66-1.25) mg/dL Estimated GFR (>60) mL/min BUN/Creatinine Ratio (6-22) Glucose (80-110) mg/dL Calcium (8.4-10.2) mg/dL Total Bilirubin (0.2-1.3) mg/dL AST (17-59) IU/L ALT (<50) IU/L Alkaline Phosphatase (38-126) U/L Total Creatine Kinase (55-170) U/L CK-MB (CK-2) CK-MB (CK-2) Rel Index Troponin I 0.024 (0.01-0.034) ng/mL NT-Pro-B Natriuret Pep (<450) pg/mL Total Protein (6.3-8.2) g/dL Albumin (3.5-5.0) g/dL Globulin (1.7-4.1) g/dL Albumin/Globulin Ratio (1.0-2.8) Lipase (23-300) U/L Urine RBC 0-1/hpf (0-5/HPF) Urine WBC 1-5/hpf (0-5/HPF) Urine Bacteria Occasional (0-1) (None) Hyaline Casts 0-1/lpf (None) Ur Culture Indicated? Cult not indicated SARS-CoV-2 (PCR) (Negative) Urine Dip Bedside Urine Glucose Negative Bedside Urine Bilirubin - Negative Bedside Urine Ketone - Negative Urine Specific [place] 1.020 Bedside Urine Occult Blood - Negative Bedside Urine pH 6.0 Bedside Urine Protein + 30 Bedside Urine Urobilinogen - Negative Bedside Urine Nitrite - Negative Bedside Urine Leukocytes - Negative Esterase Point of care testing: Urine Dip Bedside Urine Glucose Negative Bedside Urine Bilirubin - Negative Bedside Urine Ketone - Negative Urine Specific [place] 1.020 Bedside Urine Occult Blood - Negative Bedside Urine pH 6.0 Bedside Urine Protein + 30 Bedside Urine Urobilinogen - Negative Bedside Urine Nitrite - Negative Bedside Urine Leukocytes - Negative Esterase Imaging Data Chest x-ray: Radiologist's Impression: [address] [id number] ReportSigned Patient: Nicanor Mccarthy R#: [id number]: 1940cct:[id number]/Sex: 79 / MDate of Service: 09/07/20Loc: EDAccession Number: [id number] Procedure: XR chest 1V Ordering Provider: Vladislav Felipe D.O. PROCEDURE: XR CHEST 1V INDICATIONS: Shortness of breath TECHNIQUE: One view of the chest was acquired. COMPARISON: None. FINDINGS: Surgical changes and devices: None. Lungs and pleura: There is blunting of the costophrenic angles bilaterally as well as increased pulmonary vascularity. Mediastinum: Mediastinal contours appear normal. Heart size is enlarged. Bones and chest wall: No suspicious bony lesions. Overlying soft tissues appear unremarkable. IMPRESSION: 1. Cardiomegaly with trace effusions and increased vascularity suggestive of edema. Dictated by: Ginna Bullock M.D. on 09/07/2020 at 11:20 Approved by: Ginna Bullock M.D. on 09/07/2020 at 11:31 CT scan - chest: Radiologist's Impression: [address] [id number] Scan ReportSigned Patient: Nicanor Mccarthy GMR#: [id number]: 1940cct:[id number]/Sex: 79 / MDate of Service: 09/07/20Loc: EDAccession Number: [id number] Procedure: CT angio chest PE protocol Ordering Provider: Vladislav Felipe D.O. PROCEDURE: CT ANGIO CHEST PE PROTOCOL INDICATIONS: Chest pain, shortness of breath, tachycardia TECHNIQUE: After the administration of intravenous contrast, 2 mm thick sections acquired from the pulmonary apices to the posterior costophrenic angles. 3-dimensional maximum intensity projection (MIP) coronal and sagittal reformats were then acquired through the thorax. For radiation dose reduction, the following was used: automated exposure control, adjustment of mA and/or kV according to patient size. COMPARISON: None. FINDINGS: Image quality: Excellent. Pulmonary arteries: Pulmonary arteries are normal in size, and demonstrate no intraluminal filling defects to suggest central pulmonary embolism. Lungs and pleura: Lungs are mildly edematous. There are bilateral small to moderate pleural effusions, right greater than left, and no pneumothorax. Central and peripheral airways are patent. Mediastinum: Heart size is at or just above the upper limits of normal, without pericardial effusion. No mediastinal or hilar adenopathy. Thoracic aorta is normal in caliber and enhancement. Esophagus is normal in caliber, without hiatal hernia. Bones and chest wall: No suspicious bony lesions. Ribs and thoracic spine appear intact throughout. Thyroid gland is not well seen No axillary or supraclavicular adenopathy. Abdomen: Visualized upper abdominal solid organs appear normal in the early arterial phase of enhancement. IMPRESSION: No pulmonary embolus seen. Mild generalized pulmonary edema. Heart size at or just above the upper limits of normal. Right greater than left small to moderate pleural effusions, simple in appearance, and suspect cardiogenic pulmonary edema as the underlying cause. Dictated by: Giovani Bansal M.D. on 09/07/2020 at 12:22 Approved by: Giovani Bansal M.D. on 09/07/2020 at 12:27 ECG Data Attestation: I personally reviewed and interpreted this ECG as follows: Prior ECG tracings: not available for review Interpretation: Sinus rhythm Ventricular rate 80 LVH Normal QRS Normal QTC Nonspecific ST T wave changes. MDM Narrative Medical decision making narrative: Patient's surgical site looks well. He is alert oriented x3. He was given Tylenol as this was scheduled for him today. He is afebrile here in the ER. Patient's oxygen saturations in the mid 90s. Given his recent surgery and immobilization is CT scan was performed to evaluate for pulmonary embolism. The CT scan and chest x-ray consistent with pulmonary edema. He does not have any lower extremity swelling. He has never been diagnosed with heart failure. I suspect that this is most likely related to his recent surgery and the fluids he received is an inpatient at not being mobile. He states that he has only very mild chest discomfort. His troponins were negative x2. He has nonspecific changes on his EKG. Patient is not hypotensive. Not tachycardic. He states he does feel better after the albuterol nebulizer received here in the ER. I do not have any specific source of an infection. Will hold on any antibiotics for now. I did discuss the case with his primary doctor whom he has an appointment with next week. The plan will be is to start the patient on a couple days of Lasix to help him mobilize the fluid. His primary doctor work on getting him an outpatient echocardiogram. Patient does not have any oxygen requirement. He was instructed to continue all of the postoperative instructions given to him by the neurosurgeons. Also give him a prescription for albuterol to use as needed. He was given strict return precautions and follow-up instructions. He expressed understanding and agreement. Discharge Plan Departure Patient Disposition: Home Clinical Impression: COPD (chronic obstructive pulmonary disease), Pulmonary edema Instructions: Chronic Obstructive Pulmonary Disease Activity Restrictions/Additional Instructions: Your workup today is very reassuring. It does appear based on the studies that we did today that you are somewhat fluid overloaded. This is most likely related to your recent hospital stay/surgery. I also discussed your case with Dr. Garcia who agreed with start you on a few days of some diuretics to help you mobilize this fluid. We also give you a prescription for albuterol to use as needed. Keep your scheduled medical appointments with her primary doctor next week. Return to the emergency department for any new or worsening symptoms Prescriptions: New furosemide [Lasix] 20 mg tablet 20 mg PO DAILY Qty: 7 RF: 0 albuterol sulfate 90 mcg/actuation HFA aerosol inhaler 2 puff inhalation Q4-6H PRN (Reason: shortness of breath or wheezing) Qty: 18 RF: 0 No Action losartan 50 mg tablet 50 mg PO DAILY RF: 0 tamsulosin 0.4 mg capsule 0.4 mg PO BID RF: 0 levothyroxine 125 mcg tablet 125 mcg PO DAILY RF: 0 metoprolol tartrate 25 mg tablet 25 mg PO DAILY RF: 0 atorvastatin 40 mg tablet 40 mg PO DAILY RF: 0 B Complex Tablet Extended Release 1 tab PO DAILY RF: 0 milk thistle 200 mg Capsule 200 mg PO DAILY RF: 0 calcium 500 mg Tablet 500 mg DAILY RF: 0 glucosamine sulfate [Glucosamine] 500 mg Tablet 1,000 mg PO DAILY RF: 0 ascorbic acid (vitamin C) [Vitamin C] 500 mg Capsule, Extended Release 500 mg PO DAILY RF: 0 aspirin 81 mg Tablet 81 mg PO DAILY RF: 0 Excedrin PM 38-500 mg Tablet 1 tab PO BEDTIME PRN (Reason: Insomnia) RF: 0 multivitamin Capsule 1 cap DAILY RF: 0 vitamin E 400 unit Capsule 400 unit PO DAILY RF: 0 fiber Capsule 2 cap PO BID RF: 0 magnesium 200 mg Tablet 200 mg PO DAILY RF: 0 coenzyme Q10 [CoQ-10] 100 mg Capsule 100 mg PO DAILY RF: 0 Fish Oil 1,000 mg Capsule 1 cap DAILY RF: 0 vitamin [id number] acid 1-0.8 mg Tablet 1 tab PO DAILY RF: 0 budesonide-formoterol [Symbicort] 160-4.5 mcg/actuation Hfa Aerosol Inhaler 2 puff INHALATION BID RF: 0 cholecalciferol (vitamin D3) [Vitamin D3] 50 mcg (2,000 unit) Capsule 50 mcg DAILY RF: 0 Referrals: Per Garcia MD [Primary Care Provider] -
[2020-09-07 11:21] LABS: Add Manual Diff / Slide Review NO; Basophils Absolute Auto 100 /uL (0-100); Basophils Percent Auto 0.5 % (0-2); Eosinophils Absolute Auto 100 /uL (0-450); Eosinophils Percent Auto 0.9 % (2-4); Hematocrit 37.9 % (41-53); Hemoglobin 12.8 g/dL (13.5-17.5); Lymphocytes Absolute Auto 1900 /uL (1100-4500); Lymphocytes Percent Auto 15.9 % (25-40); Mean Corpuscular HGB Conc 33.8 % (30-36); Mean Corpuscular Hemoglobin 30.3 PG (26-34); Mean Corpuscular Volume 89.7 fL (80-100); Monocytes Absolute Auto 1600 /uL (0-900); Monocytes Percent Auto 13.2 % (3-14); Neutrophils Absolute Auto 8200 /uL (1500-7000); Neutrophils Percent Auto 69.5 % (50-75); Platelet Count 269 X10^3/uL (150-400); Red Blood Cell Count 4.23 X10^6/uL (4.5-5.9); Red Cell Distribution Width 13.4 % (11.6-14.8); White Blood Cell Count 11.7 X10^3/uL (4.5-11.0)
[2020-09-07 11:28] LABS: Alanine Aminotransferase 74 IU/L (<50); Albumin 3.4 g/dL (3.5-5.0); Albumin Globulin Ratio 0.7 (1.0-2.8); Alkaline Phosphatase 101 U/L (38-126); Aspartate Aminotransferase 72 IU/L (17-59); BUN Creatinine Ratio 22.9 (6-22); Bilirubin Total 0.5 mg/dL (0.2-1.3); Blood Urea Nitrogen 27 mg/dL (9-20); Calcium 10.3 mg/dL (8.4-10.2); Carbon Dioxide 25 mmol/L (22-32); Chloride 106 mmol/L (98-107); Creatine Kinase 27 U/L (55-170); Estimated Glomerular Filt Rate 59.9 mL/min (>60); Globulin 4.6 g/dL (1.7-4.1); Glucose 118 mg/dL (80-110); HEMOLYSIS < 15 (0-50); Lipase 301 U/L (23-300); Potassium 3.7 mmol/L (3.4-5.1); Sodium 139 mmol/L (137-145)
[2020-09-07 11:41] LABS: NT-proBNP (BNP-Adult 18+) 3580 pg/mL (<450); Troponin I 0.027 ng/mL (0.01-0.034)
[2020-09-07] MEDS: ACETAMINOPHEN 325 MG TABLET 650 MG PO (11:41)
[2020-09-07 11:48] LABS: COVID19 -Nasal RAPID Negative (Negative)
--- NOTE | 2020-09-07 11:57 | DI.CT.S_ITS ---
PROCEDURE: CT ANGIO CHEST PE PROTOCOL INDICATIONS: Chest pain, shortness of breath, tachycardia TECHNIQUE: After the administration of intravenous contrast, 2 mm thick sections acquired from the pulmonary apices to the posterior costophrenic angles. 3-dimensional maximum intensity projection (MIP) coronal and sagittal reformats were then acquired through the thorax. For radiation dose reduction, the following was used: automated exposure control, adjustment of mA and/or kV according to patient size. COMPARISON: None. FINDINGS: Image quality: Excellent. Pulmonary arteries: Pulmonary arteries are normal in size, and demonstrate no intraluminal filling defects to suggest central pulmonary embolism. Lungs and pleura: Lungs are mildly edematous. There are bilateral small to moderate pleural effusions, right greater than left, and no pneumothorax. Central and peripheral airways are patent. Mediastinum: Heart size is at or just above the upper limits of normal, without pericardial effusion. No mediastinal or hilar adenopathy. Thoracic aorta is normal in caliber and enhancement. Esophagus is normal in caliber, without hiatal hernia. Bones and chest wall: No suspicious bony lesions. Ribs and thoracic spine appear intact throughout. Thyroid gland is not well seen No axillary or supraclavicular adenopathy. Abdomen: Visualized upper abdominal solid organs appear normal in the early arterial phase of enhancement. IMPRESSION: No pulmonary embolus seen. Mild generalized pulmonary edema. Heart size at or just above the upper limits of normal. Right greater than left small to moderate pleural effusions, simple in appearance, and suspect cardiogenic pulmonary edema as the underlying cause. Dictated by: Giovani Bansal M.D. on 09/07/2020 at 12:22 Approved by: Giovani Bansal M.D. on 09/07/2020 at 12:27
[2020-09-07 12:01] LABS: Bacteria Urine Occasional (0-1); RBC Urine 0-1/HPF (0-5/HPF); WBC Urine 1-5/HPF (0-5/HPF)
[2020-09-07 12:02] LABS: Culture Indicated Urine Cult Not Indicated; Hyaline Casts Urine 0-1/LPF
[2020-09-07] MEDS: ALBUTEROL 2.5 MG/3 ML NEB (ADULT) INH (12:54)
[2020-09-07 13:53] LABS: Troponin I 0.024 ng/mL (0.01-0.034)
== END 2020-09-07 14:40 | disposition home or self-care (01) ==
PROVIDERS: Emergency Provider Emergency Medicine; PCP Internal Medicine
DX: J44.9 Chronic obstructive pulmonary disease, unspecified (principal); J81.1 Chronic pulmonary edema; R00.0 Tachycardia, unspecified; R07.9 Chest pain, unspecified; R51.9 Headache, unspecified; R50.9 Fever, unspecified; Z20.822 Contact with and (suspected) exposure to COVID-19
CPT/HCPCS: 36415; 71045; 71275; 80053; 81003; 81015; 82550; 83690; 83880; 84484; 85025; 87635; 93005; 94640; 99284; C9803; J7613

== ENCOUNTER → 2020-09-09 10:14 | Outpatient (CLI) | payer MEDICARE, SELFPAY ==
--- NOTE | 2020-09-09 10:16 | DI.ECHO.S_ITS ---
[place] [facility] +---------+ : : [address] : : : : [id number] : : : : Phone: [phone]+ Echocardiogram Report + + :Name: LANDRY CLAYTON Study Date: 09/09/2020 Height: 72 in : :[facility] ReadingLocation: Weight: 250 lb : : Gender: Male BSA: 2.3 m2 : :: 1940 Age: 79 yrs BP: 144/68 mmHg: :Reason For Study: CONGESTIVE HEART FAILURE : :Ordering Physician: ADAMA, : :OLIS Farris Performed By: Belén Milligan : :Referring: LOIS GALAN : + + Interpretation Summary Normal sinus rhythm. Normal LV size; mild concentric LVH; EF is 60-65%. Stage II diastolic dysfunction. Mild LA enlargement. Otherwise normal chamber sizes. Aortic sclerosis with mild associated stenosis. Mild mitral annular calcification. No prior study available for comparison. Procedure: A two-dimensional transthoracic echocardiogram with color flow and Doppler was performed. The study quality was technically adequate. There is no prior echocardiogram noted for this patient. The patient was in sinus rhythm with heart rates between 64-78 bpm during the exam. Left Ventricle: The left ventricle is normal in size. There is mild concentric left ventricular hypertrophy. The ejection fraction is estimated to be 60-65%. Right Ventricle: The right ventricle is normal in size and function. Atria: The left atrium is mildly dilated. Right atrial size is normal. There is no Doppler evidence for an interatrial shunt. Mitral Valve: The mitral valve leaflets are mildly calcified. There is mild mitral annular calcification. There is trace mitral regurgitation. Aortic Valve: The aortic valve is trileaflet. The aortic valve is mildly calcified. The peak aortic velocity is 2.8 m/sec. The aortic valve mean gradient is 18 mmHg. The calculated aortic valve area is 1.3 cm2. There is mild aortic regurgitation. Tricuspid Valve: The tricuspid valve is normal in structure and function. There is trace tricuspid regurgitation. Pulmonary artery pressures cannot be estimated because of the lack of a measurable TR jet velocity but the IVC suggests a CVP of around 3 mmHg. Pulmonic Valve: The pulmonic valve leaflets are thin and pliable; valve motion is normal. There is no pulmonic valvular regurgitation. Great Vessels: The aortic root is normal size. The ascending aorta is mildly enlarged. The IVC is of normal diameter and collapses greater than 50% with a sniff. This suggests a low right atrial pressure of 3 mm Hg. Pericardium/ Pleura There is no pericardial effusion. There is no pleural effusion. MMode/2D Measurements & Calculations LVIDd: 5.2 cm LVOT diam: 2.0 cm LVIDs: 3.4 cm Ao root diam: 3.7 cm FS: 35.3 % asc Aorta Diam: 3.8 cm EPSS: 0.55 cm IVSd: 1.2 cm LVPWd: 1.2 cm LV patterson. diameter/BSA (cm/m^2): 2.2 LV sys. diameter/BSA (cm/m^2): 1.4 LA A2 area: 22.5 cm2 RA long axis: 4.9 cm LA A4 area: 27.4 cm2 RA area: 16.5 cm2 LA length (vol): 6.7 cm RA vol: 47.1 ml LA vol: 78.7 ml RA : 20.1 ml/m2 LA vol index: 33.6 ml/m2 IVC diam: 1.0 cm RVD1 (basal): 3.1 cm TAPSE: 1.9 cm Doppler Measurements & Calculations Ao V2 max: 278.0 cm/sec LVOT Max Perfecto: 107.2 cm/sec Ao V2 mean: 202.4 cm/sec LV V1 max P.0 mmHg Ao max P.9 mmHg LV V1 VTI: 27.5 cm Ao mean P.1 mmHg XAVIER(I,D): 1.4 cm2 Ao V2 VTI: 62.5 cm XAVIER(V,D): 1.3 cm2 sev ratio: 0.44 XAVIER indexed to BSA (cm^2/m^2): 0.62 MV E max perfecto: 103.7 cm/sec PA V2 max: 121.4 cm/sec MV A max perfecto: 115.6 cm/sec PA V2 mean: 85.0 cm/sec MV E/A: 0.90 PA mean P.2 mmHg Med Peak E' Perfecto: 4.2 cm/sec PA pr(Accel): 34.5 mmHg E/E' med: 24.8 Lat Peak E' Perfecto: 5.1 cm/sec E/E' lat: 20.4 E/e' average: 22.6 MV dec time: 0.25 sec MVA(VTI): 2.2 cm2 MV V2 mean: 74.9 cm/sec SV(LVOT): 90.3 ml MV mean P.5 mmHg MV V2 VTI: 40.4 cm Electronically signed by: Latoya Dyson M.D. on Reading Physician:09/09/2020 11:47 PM
== END ==
PROVIDERS: PCP Internal Medicine; Referring Provider Internal Medicine; Visit Provider Internal Medicine
DX: I50.9 Heart failure, unspecified (principal); I70.0 Atherosclerosis of aorta; I34.0 Nonrheumatic mitral (valve) insufficiency; I35.1 Nonrheumatic aortic (valve) insufficiency; I38 Endocarditis, valve unspecified
CPT/HCPCS: 93306

== ENCOUNTER 2020-09-09 17:24 | Emergency (ER) | payer MEDICARE, SELFPAY ==
[2020-09-09 17:33] VITALS: BP 153/78; PULSE 86; RESP 16; TEMP 36.9; O2SAT 97; BMI 33.9
--- NOTE | 2020-09-09 17:43 | DI.RAD.S_ITS ---
PROCEDURE: XR CHEST 1V INDICATIONS: eval for PNA TECHNIQUE: One view of the chest was acquired. COMPARISON: [facility], CR, XR CHEST 1V, 09/07/2020, 11:02. FINDINGS: Surgical changes and devices: None. Lungs and pleura: Mild patchy bilateral mid lung and lower lung opacities.. No pleural effusions or pneumothorax. Mediastinum: Mediastinal contours appear normal. Heart size is normal. Bones and chest wall: No suspicious bony lesions. Overlying soft tissues appear unremarkable. IMPRESSION: Mild atypical pneumonia. Dictated by: Ren Stephenson M.D. on 09/09/2020 at 18:14 Approved by: Ren Stephenson M.D. on 09/09/2020 at 18:15
[2020-09-09 18:18] LABS: Bacteria Urine None Seen; RBC Urine None Seen (0-5/HPF)
[2020-09-09 18:18] LABS: Add Manual Diff / Slide Review NO; Basophils Absolute Auto 100 /uL (0-100); Basophils Percent Auto 1.3 % (0-2); Eosinophils Absolute Auto 500 /uL (0-450); Hematocrit 36.3 % (41-53); Hemoglobin 12.3 g/dL (13.5-17.5); Lymphocytes Absolute Auto 2200 /uL (1100-4500); Lymphocytes Percent Auto 21.7 % (25-40); Mean Corpuscular HGB Conc 33.8 % (30-36); Mean Corpuscular Hemoglobin 30.2 PG (26-34); Mean Corpuscular Volume 89.5 fL (80-100); Monocytes Absolute Auto 1300 /uL (0-900); Monocytes Percent Auto 13.3 % (3-14); Neutrophils Absolute Auto 5900 /uL (1500-7000); Neutrophils Percent Auto 58.7 % (50-75); Platelet Count 268 X10^3/uL (150-400); Red Blood Cell Count 4.06 X10^6/uL (4.5-5.9); Red Cell Distribution Width 13.6 % (11.6-14.8); White Blood Cell Count 10.1 X10^3/uL (4.5-11.0)
[2020-09-09 18:21] LABS: Lactate (Lactic Acid) 1.4 mmol/L (0.7-2.1)
[2020-09-09 18:22] LABS: Alanine Aminotransferase 83 IU/L (<50); Albumin 3.2 g/dL (3.5-5.0); Albumin Globulin Ratio 0.7 (1.0-2.8); Alkaline Phosphatase 127 U/L (38-126); Aspartate Aminotransferase 52 IU/L (17-59); BUN Creatinine Ratio 19.6 (6-22); Bilirubin Total 0.3 mg/dL (0.2-1.3); Blood Urea Nitrogen 20 mg/dL (9-20); Calcium 10.1 mg/dL (8.4-10.2); Carbon Dioxide 26 mmol/L (22-32); Chloride 104 mmol/L (98-107); Estimated Glomerular Filt Rate > 60.0 mL/min (>60); Globulin 4.6 g/dL (1.7-4.1); Glucose 156 mg/dL (80-110); HEMOLYSIS < 15 (0-50); Lipase 180 U/L (23-300); Sodium 139 mmol/L (137-145); Total Protein 7.8 g/dL (6.3-8.2)
[2020-09-09 18:27] LABS: Culture Indicated Urine Cult Not Indicated; Squamous Epithelial Cell Urine 0-1 /HPF (0-5/HPF); WBC Urine 0-1/HPF (0-5/HPF)
--- NOTE | 2020-09-09 19:15 | ED_ITS ---
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 He was seen 2 days ago in the ER with a COPD exacerbation with PE CT study done at the time. He was felt to be slightly fluid overloaded, was given Lasix but specifically not started on antibiotics, surgical site did not appear to be concerning. He has tried to use his right hearing aid and was doing some fumbling with the device behind his right ear. The hearing aid was irritating the lower part of the wound and today it seems a bit more swollen a bit more red and he presented for further evaluation. He does note that the recent addition of diuretic has been working well when his breathing is better. He is afebrile in the department, reports improving dyspnea, minimal headaches no altered mental status, no abdominal pain, no change to bowel or bladder habits. Related Data Home Medications Medication Instructions Recorded Confirmed atorvastatin 40 mg tablet 40 mg PO DAILY 08/24/20 08/25/20 levothyroxine 125 mcg tablet 125 mcg PO DAILY 08/24/20 08/25/20 losartan 50 mg tablet 50 mg PO DAILY 08/24/20 08/25/20 metoprolol tartrate 25 mg tablet 25 mg PO DAILY 08/24/20 08/25/20 tamsulosin 0.4 mg capsule 0.4 mg PO BID cap 08/24/20 08/25/20 ascorbic acid (vitamin C) [Vitamin 500 mg PO DAILY 08/25/20 08/25/20 C] aspirin 81 mg PO DAILY 08/25/20 08/25/20 budesonide-formoterol [Symbicort] 2 puff INHALATION BID 08/25/20 08/25/20 calcium 500 mg DAILY 08/25/20 08/25/20 cholecalciferol (vitamin D3) 50 mcg DAILY 08/25/20 08/25/20 [Vitamin D3] coenzyme Q10 [CoQ-10] 100 mg PO DAILY 08/25/20 08/25/20 diphenhydramine-acetaminophen 1 tab PO BEDTIME PRN 08/25/20 08/25/20 [Excedrin PM] fiber 2 cap PO BID 08/25/20 08/25/20 glucosamine sulfate [Glucosamine] 1,000 mg PO DAILY 08/25/20 08/25/20 magnesium 200 mg PO DAILY 08/25/20 08/25/20 milk thistle 200 mg PO DAILY 08/25/20 08/25/20 multivitamin 1 cap DAILY 08/25/20 08/25/20 omega-3 fatty acids-vitamin E 1 cap DAILY 08/25/20 08/25/20 [Fish Oil] vitamin B complex [B Complex] 1 tab PO DAILY 08/25/20 08/25/20 vitamin [id number] acid 1 tab PO DAILY 08/25/20 08/25/20 vitamin E 400 unit PO DAILY 08/25/20 08/25/20 Previous Rx's Medication Instructions Recorded albuterol sulfate 2 puff INHALATION Q4-6H PRN #18 g 09/07/20 furosemide [Lasix] 20 mg PO DAILY #7 tab 09/07/20 cephalexin 500 mg PO TID #21 cap 09/09/20 Allergies Allergy/AdvReac Type Severity Reaction Status Date / Time No Known Drug Allergies Allergy Verified 09/07/20 11:25 Review of Systems Review of Systems Narrative: Remainder of complete review of systems is otherwise unremarkable except for that included in the HPI. Patient History Medical History AAA (abdominal aortic aneurysm) Acquired hypothyroidism Cancer of skull Essential hypertension Mixed hyperlipidemia Personal history of stroke with current residual effects Renal cell carcinoma (~2009) Surgical History S/p nephrectomy (~2009) S/P shoulder surgery S/P wrist surgery Family History Mother Diabetes mellitus Father Heart disease Social History Smoking Status: Former smoker Smoking Status: Former smoker alcohol intake frequency: 0-2 drinks per day Substance Use Type: does not use Exam Narrative Exam Narrative: General: Healthy appearing, in no acute distress. Able to give a complete and coherent history. Well-nourished well-developed HEENT: Moist mucous membranes, normal sclera with reactive pupils, the large craniotomy incision appears to be healing well until the lower 2.5 cm behind his right ear. This area is slightly erythematous, slightly swollen no overt cellulitis or drainage is appreciated. Neck: No JVD, supple, no cervical adenopathy and no posterior auricular adenopathy Respiratory: Lungs are clear to auscultation, no wheezing no rales no rhonchi. Full and symmetrical air movement Cardiac: Regular rate and rhythm no murmurs no bruits Abdomen: Soft, nontender, good bowel tones, no flank pain Skin: Warm and dry, no rashes Neurologic: Grossly neurologically intact with no obvious asymmetries or abnormalities Extremities: No trauma, well perfused Psych: Cooperative, appropriate insight and affect Initial Vital Signs Initial Vital Signs: Vital Signs Temperature 98.4 F 09/09/20 17:33 Pulse Rate 86 09/09/20 17:33 Respiratory Rate 16 09/09/20 17:33 Blood Pressure 153/78 H 09/09/20 17:33 Pulse Oximetry 97 09/09/20 17:33 Course Orders Ordered: ED Orders 09/09/20 17:40 Urine Microscopic Stat 09/09/20 17:43 XR chest 1V Stat 09/09/20 17:55 Complete Blood Count AUTO DIFF Stat Comprehensive Metabolic Panel Stat Lactate (Lactic Acid) Stat Lipase Stat Procalcitonin Stat 09/09/20 18:17 Blood Culture Stat Discontinued Medications Cephalexin HCl (Cephalexin 250 Mg Capsule) 500 mg PO NOW ONE Stop: 09/09/20 20:24 Last Admin: 09/09/20 20:30 Dose: 500 mg Documented by: Vital Signs Vital signs: Vital Signs - 8 hr 09/09/20 17:33 Temperature 98.4 F Pulse Rate 86 Respiratory Rate 16 Blood Pressure 153/78 H Pulse Oximetry 97 Medical Decision Making Medical Records Medical records reviewed: Yes I reviewed the patient's medical records. Lab Data Lab results reviewed: Yes I reviewed the patient's lab results. Result diagrams: 09/09/20 17:55 09/09/20 17:55 Labs: Lab Results 09/09/20 09/09/20 09/09/20 Range/Units 17:40 17:55 17:55 WBC 10.1 (4.5-11.0) X10^3/uL RBC 4.06 L (4.5-5.9) X10^6/uL Hgb 12.3 L (13.5-17.5) g/dL Hct 36.3 L (41-53) % MCV 89.5 (80-100) fL MCH 30.2 (26-34) PG MCHC 33.8 (30-36) % RDW 13.6 (11.6-14.8) % Plt Count 268 (150-400) X10^3/uL Neut % (Auto) 58.7 (50-75) % Lymph % (Auto) 21.7 L (25-40) % Phelps % (Auto) 13.3 (3-14) % Eos % (Auto) 5.0 H (2-4) % Baso % (Auto) 1.3 (0-2) % Neut # (Auto) 5900 (9185-3729) /uL Lymph # (Auto) 2200 (9706-3966) /uL Phelps # (Auto) 1300 H (0-900) /uL Eos # (Auto) 500 H (0-450) /uL Baso # (Auto) 100 (0-100) /uL Sodium 139 (137-145) mmol/L Potassium 4.0 (3.4-5.1) mmol/L Chloride 104 (98-107) mmol/L Carbon Dioxide 26 (22-32) mmol/L BUN 20 (9-20) mg/dL Creatinine 1.02 (0.66-1.25) mg/dL Estimated GFR > 60.0 (>60) mL/min BUN/Creatinine Ratio 19.6 (6-22) Glucose 156 H (80-110) mg/dL Lactate (0.7-2.1) mmol/L Calcium 10.1 (8.4-10.2) mg/dL Total Bilirubin 0.3 (0.2-1.3) mg/dL AST 52 (17-59) IU/L ALT 83 H (<50) IU/L Alkaline Phosphatase 127 H (38-126) U/L Total Protein 7.8 (6.3-8.2) g/dL Albumin 3.2 L (3.5-5.0) g/dL Globulin 4.6 H (1.7-4.1) g/dL Albumin/Globulin Ratio 0.7 L (1.0-2.8) Lipase 180 (23-300) U/L Procalcitonin 0.10 (<0.5) ng/mL Urine RBC None seen (0-5/HPF) Urine WBC 0-1/hpf (0-5/HPF) Ur Squamous Epith Cells 0-1 /hpf (0-5/HPF) Urine Bacteria None seen (None) Ur Culture Indicated? Cult not indicated 09/09/20 Range/Units 17:55 WBC (4.5-11.0) X10^3/uL RBC (4.5-5.9) X10^6/uL Hgb (13.5-17.5) g/dL Hct (41-53) % MCV (80-100) fL MCH (26-34) PG MCHC (30-36) % RDW (11.6-14.8) % Plt Count (150-400) X10^3/uL Neut % (Auto) (50-75) % Lymph % (Auto) (25-40) % Phelps % (Auto) (3-14) % Eos % (Auto) (2-4) % Baso % (Auto) (0-2) % Neut # (Auto) (9110-2260) /uL Lymph # (Auto) (1014-4329) /uL Phelps # (Auto) (0-900) /uL Eos # (Auto) (0-450) /uL Baso # (Auto) (0-100) /uL Sodium (137-145) mmol/L Potassium (3.4-5.1) mmol/L Chloride (98-107) mmol/L Carbon Dioxide (22-32) mmol/L BUN (9-20) mg/dL Creatinine (0.66-1.25) mg/dL Estimated GFR (>60) mL/min BUN/Creatinine Ratio (6-22) Glucose (80-110) mg/dL Lactate 1.4 (0.7-2.1) mmol/L Calcium (8.4-10.2) mg/dL Total Bilirubin (0.2-1.3) mg/dL AST (17-59) IU/L ALT (<50) IU/L Alkaline Phosphatase (38-126) U/L Total Protein (6.3-8.2) g/dL Albumin (3.5-5.0) g/dL Globulin (1.7-4.1) g/dL Albumin/Globulin Ratio (1.0-2.8) Lipase (23-300) U/L Procalcitonin (<0.5) ng/mL Urine RBC (0-5/HPF) Urine WBC (0-5/HPF) Ur Squamous Epith Cells (0-5/HPF) Urine Bacteria (None) Ur Culture Indicated? Urine Dip Bedside Urine Glucose Negative Bedside Urine Bilirubin - Negative Bedside Urine Ketone - Negative Urine Specific Kane 1.025 Bedside Urine Occult Blood - Negative Bedside Urine pH 6.0 Bedside Urine Protein + 30 Bedside Urine Urobilinogen - Negative Bedside Urine Nitrite - Negative Bedside Urine Leukocytes - Negative Esterase Point of care testing: Urine Dip Bedside Urine Glucose Negative Bedside Urine Bilirubin - Negative Bedside Urine Ketone - Negative Urine Specific Kane 1.025 Bedside Urine Occult Blood - Negative Bedside Urine pH 6.0 Bedside Urine Protein + 30 Bedside Urine Urobilinogen - Negative Bedside Urine Nitrite - Negative Bedside Urine Leukocytes - Negative Esterase Imaging Data Chest x-ray: Attestation: I personally reviewed and interpreted this imaging study as follows: My Impression: Based on his clinical exam I am more impressed that these radiologic findings are mild volume overload or atelectasis. Radiologist's Impression: FINDINGS: Surgical changes and devices: None. Lungs and pleura: Mild patchy bilateral mid lung and lower lung opacities.. No pleural effusions or pneumothorax. Mediastinum: Mediastinal contours appear normal. Heart size is normal. Bones and chest wall: No suspicious bony lesions. Overlying soft tissues appear unremarkable. IMPRESSION: Mild atypical pneumonia. Dictated by: Ren Stephenson M.D. on 09/09/2020 at 18:14 MDM Narrative Medical decision making narrative: Gentleman 7 days post skull surgery for removal of tumors with fever noted at home today, afebrile in the ER. Minor irritation to the lower portion of the craniotomy scar, likely related to being irritated from using his hearing aid. No clinical signs or symptoms of pneumonia and no cough reported. White count is reassuring. Will begin him on cephalexin and clearly went over signs and symptoms of worsening infection including pneumonia. He has a follow-up with his oncologist tomorrow. He is safe for home discharge at this time Discharge Plan Departure Patient Disposition: Home Clinical Impression: Postoperative wound infection Instructions: DI for Wound Infection Activity Restrictions/Additional Instructions: Thank you for coming in today Ago was very appropriate to further evaluate this. I suspect that you are completely correct that trying to use the hearing aid created a bit more irrita tion and has caused a minor bit of infection in the portion of the wound just behind his right ear. Please continue with the antibiotic ointment as you have been doing and hold off on using the hearing aid until you complete the course of cephalexin. [email or web address] and [employer] for you to pick remover tomorrow. If you notice increasing redness, any drainage, increasing pain, fevers or other worsening signs of infection you need to be re-evaluated again. I hope you heal quickly Prescriptions: New cephalexin 500 mg capsule 500 mg PO TID Qty: 21 RF: 0 No Action losartan 50 mg tablet 50 mg PO DAILY RF: 0 tamsulosin 0.4 mg capsule 0.4 mg PO BID RF: 0 levothyroxine 125 mcg tablet 125 mcg PO DAILY RF: 0 metoprolol tartrate 25 mg tablet 25 mg PO DAILY RF: 0 atorvastatin 40 mg tablet 40 mg PO DAILY RF: 0 B Complex Tablet Extended Release 1 tab PO DAILY RF: 0 milk thistle 200 mg Capsule 200 mg PO DAILY RF: 0 calcium 500 mg Tablet 500 mg DAILY RF: 0 glucosamine sulfate [Glucosamine] 500 mg Tablet 1,000 mg PO DAILY RF: 0 ascorbic acid (vitamin C) [Vitamin C] 500 mg Capsule, Extended Release 500 mg PO DAILY RF: 0 aspirin 81 mg Tablet 81 mg PO DAILY RF: 0 Excedrin PM 38-500 mg Tablet 1 tab PO BEDTIME PRN (Reason: Insomnia) RF: 0 multivitamin Capsule 1 cap DAILY RF: 0 vitamin E 400 unit Capsule 400 unit PO DAILY RF: 0 fiber Capsule 2 cap PO BID RF: 0 magnesium 200 mg Tablet 200 mg PO DAILY RF: 0 coenzyme Q10 [CoQ-10] 100 mg Capsule 100 mg PO DAILY RF: 0 Fish Oil 1,000 mg Capsule 1 cap DAILY RF: 0 vitamin F39-[id number] acid 1-0.8 mg Tablet 1 tab PO DAILY RF: 0 budesonide-formoterol [Symbicort] 160-4.5 mcg/actuation Hfa Aerosol Inhaler 2 puff INHALATION BID RF: 0 cholecalciferol (vitamin D3) [Vitamin D3] 50 mcg (2,000 unit) Capsule 50 mcg DAILY RF: 0 furosemide [Lasix] 20 mg tablet 20 mg PO DAILY Qty: 7 RF: 0 albuterol sulfate 90 mcg/actuation HFA aerosol inhaler 2 puff inhalation Q4-6H PRN (Reason: shortness of breath or wheezing) Qty: 18 RF: 0 Referrals: Per Garcia MD [Primary Care Provider] -
[2020-09-09] MEDS: cephALEXin 250 MG CAPSULE 500 MG PO (20:30)
[2020-09-09 20:45] VITALS: BP 185/89; PULSE 77; RESP 20; TEMP 36.7; O2SAT 97
== END 2020-09-09 20:47 | disposition home or self-care (01) ==
PROVIDERS: Emergency Medicine; Emergency Provider Emergency Medicine; PCP Internal Medicine
DX: T81.49XA Infection following a procedure, other surgical site, initial encounter (principal); R50.9 Fever, unspecified
CPT/HCPCS: 36415; 71045; 80053; 81003; 81015; 83605; 83690; 84145; 85025; 87040; 93306; 99284

== ENCOUNTER → 2020-09-14 16:34 | Outpatient (CLI) | payer MEDICARE, SELFPAY ==
[2020-09-14 17:25] LABS: BUN Creatinine Ratio 17.1 (6-22); Blood Urea Nitrogen 26 mg/dL (9-20); Carbon Dioxide 27 mmol/L (22-32); Chloride 100 mmol/L (98-107); Estimated Glomerular Filt Rate 44.7 mL/min (>60); Glucose 192 mg/dL (80-110); HEMOLYSIS < 15 (0-50); Potassium 4.1 mmol/L (3.4-5.1); Sodium 138 mmol/L (137-145)
[2020-09-14 17:57] LABS: Calcium 13.9 mg/dL (8.4-10.2)
== END ==
PROVIDERS: PCP Internal Medicine; Referring Provider Internal Medicine; Visit Provider Internal Medicine
DX: I10 Essential (primary) hypertension (principal)
CPT/HCPCS: 36415; 80048

== ENCOUNTER → 2021-03-18 11:31 | Outpatient (CLI) | payer MEDICARE, SELFPAY ==
[2021-03-18 13:05] LABS: Bilirubin Urine UA NEGATIVE (NEGATIVE); Color Urine UA YELLOW; Glucose Urine UA TRACE g/dL (Negative); Ketones Urine UA NEGATIVE (NEGATIVE); Leukocyte Esterase Urine UA TRACE (NEGATIVE); Nitrite Urine UA NEGATIVE (Negative); Occult Blood Urine UA NEGATIVE (Negative); Protein Urine UA 1+ (Negative); Specific Gravity Urine UA 1.025 (1.000-1.035); Urobilinogen Urine UA 0.2 E.U./dL (0.2)
[2021-03-18 13:07] LABS: Appearance Urine UA Clear
[2021-03-18 13:46] LABS: Bacteria Urine Moderate (10-30); Culture Indicated Urine Specimen Cultured; Mucus Urine 1+ (Negative); RBC Urine 0-1/HPF (0-5/HPF); Squamous Epithelial Cell Urine 0-1 /HPF (0-5/HPF); WBC Urine 30-100/HPF (0-5/HPF)
[2021-03-18 14:15] LABS: BUN Creatinine Ratio 18.2 (6-22); Blood Urea Nitrogen 22 mg/dL (9-20); Calcium 8.9 mg/dL (8.4-10.2); Carbon Dioxide 26 mmol/L (22-32); Chloride 104 mmol/L (98-107); Glucose 175 mg/dL (80-110); HEMOLYSIS < 15 (0-50); Potassium 3.9 mmol/L (3.4-5.1); Sodium 137 mmol/L (137-145)
[2021-03-18 19:30] LABS: Hemoglobin A1C% w Est Avg Glu 6.9 % (4.0-6.0)
== END ==
PROVIDERS: PCP Internal Medicine; Referring Provider Internal Medicine; Visit Provider Internal Medicine
DX: R73.9 Hyperglycemia, unspecified (principal)
CPT/HCPCS: 36415; 80048; 81003; 81015; 83036; 87077; 87086; 87186

== ENCOUNTER 2021-06-01 11:42 | Emergency (ER) | payer MEDICARE, SELFPAY ==
[2021-06-01] VITALS (11 sets, daily range): BP systolic 100; BP diastolic 59; PULSE 60–74; RESP 14–18; TEMP 36.6; O2SAT 97–99; BMI 33.0
--- NOTE | 2021-06-01 12:09 | DI.RAD.S_ITS ---
PROCEDURE: XR KNEE LT 1TO2V INDICATIONS: bilateral knee pain TECHNIQUE: 3 views of the knee were acquired. COMPARISON: None. FINDINGS: Bones: No fractures or dislocations. No suspicious bony lesions. Mild medial and patellofemoral compartment osteoarthritis. Soft tissues: Moderate-sized suprapatellar joint effusion. No suspicious soft tissue calcifications. IMPRESSION: 1. 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 2. Moderate-sized nonspecific left knee joint effusion. Dictated by: Rachelle Hernandez MD, PhD on 06/01/2021 at 12:40 Approved by: Rachelle Hernandez MD, PhD on 06/01/2021 at 12:41
--- NOTE | 2021-06-01 12:09 | DI.RAD.S_ITS ---
PROCEDURE: XR KNEE RT 1TO2V INDICATIONS: bilateral knee pain TECHNIQUE: 3 views of the knee were acquired. COMPARISON: None. FINDINGS: Bones: No fractures or dislocations. No suspicious bony lesions. Mild medial and patellofemoral compartment osteoarthritis. Enthesophyte noted the superior margin of the patella. Soft tissues: Small suprapatellar joint effusion. No suspicious soft tissue calcifications. IMPRESSION: 1. 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 2. Patellar bone spur. 3. Small nonspecific left knee joint effusion. Dictated by: Rachelle Hernandez MD, PhD on 06/01/2021 at 12:41 Approved by: Rachelle Hernandez MD, PhD on 06/01/2021 at 12:42
--- NOTE | 2021-06-01 12:21 | ED_ITS ---
HPI - Extremity Problem <Merlene Patel [facility] - Last Filed: 06/01/21 18:59> General Chief complaint: Extremity Problem,Nontraumatic Stated complaint: Pain and swelling in both knees x2 days Time Seen by Provider: 06/01/21 11:46 Source: patient Mode of arrival: Wheelchair History of Present Illness HPI Narrative: This is a pleasant 80-year-old male with a history of multiple myeloma, currently on chemo in remission since 05/07/2021, on Plavix who presents to the emergency department for worsening bilateral knee swelling for 4 days. Patient states there was no trauma, on 05/29/2019 to he woke up with bilateral knee pain and mild swelling and pain with ambulation. Patient is on daily Revlimid, Plavix currently on metoprolol, spironolactone, losartan, atorvastatin, states not taking his metformin because of diarrhea and he takes valacyclovir. Patient denies any recent fever, diaphoresis, chest pain, shortness of breath, his only complaint is bilateral knee swelling and pain with painful ambulation. Patient states he is able to bear weight on his knees but states that is not comfortable. Related Data Home Medications Medication Instructions Recorded Confirmed levothyroxine 125 mcg tablet 125 mcg PO DAILY 08/24/20 04/19/21 tamsulosin 0.4 mg capsule 0.4 mg PO BID cap 08/24/20 04/19/21 budesonide-formoterol HFA 160 2 puff INHALATION BID 08/25/20 04/19/21 mcg-4.5 mcg/actuation aerosol inhaler (Symbicort) acetaminophen 650 mg 650 mg PO Q6H PRN tab 09/14/20 04/19/21 tablet,extended release (Tylenol 8 Hour) aspirin 81 mg tablet 81 mg PO DAILY 10/20/20 04/19/21 lenalidomide 15 mg capsule 15 mg PO .COMPLEX cap 11/16/20 04/19/21 (Revlimid) losartan 50 mg tablet 50 mg PO DAILY 11/16/20 04/19/21 dexamethasone 2 mg tablet 8 mg PO QWEEK tab 03/18/21 04/19/21 Previous Rx's Medication Instructions Recorded albuterol sulfate 90 mcg/actuation 2 puff INHALATION Q4-6H PRN #18 g 09/07/20 aerosol inhaler clopidogrel 75 mg tablet 75 mg PO DAILY #90 tab 11/16/20 metoprolol succinate 25 mg 25 mg PO DAILY #90 tab 11/16/20 tablet,extended release 24 hr valacyclovir 500 mg tablet 500 mg PO BID #180 tab 11/16/20 atorvastatin 80 mg tablet 80 mg PO QPM #90 tab 11/22/20 metformin 500 mg tablet 500 mg PO BID #60 tab 03/21/21 nitrofurantoin macrocrystal 100 mg 100 mg PO BID #14 cap 03/21/21 capsule methylprednisolone 4 mg tablets in 4 mg PO DAILY #21 ea 06/01/21 a dose pack (Medrol (Dex)) Allergies Allergy/AdvReac Type Severity Reaction Status Date / Time No Known Drug Allergies Allergy Verified 06/01/21 11:56 Review of Systems <LUZMARIA Villasenor - Last Filed: 06/01/21 18:59> Review of Systems Narrative: General: denies fever, chills, malaise, sweats, fatigue Head/Neck: denies headache, neck pain, dizziness Eyes: denies visual changes, eye pain Cardio: denies chest pain, palpitations, edema Respiratory: denies dyspnea, cough, orthopnea GI: denies abdominal pain, nausea, vomiting, or diarrhea : denies dysuria, hematuria, urinary retention, frequency or incontinence MSK: Endorses bilateral knee pain and edema, denies muscle weakness, endorses inability to bear full weight on both of these knees due to pain Skin: denies rash, itching, skin lesions or other, denies any open wounds denies any trauma Neuro: denies numbness, tingling Patient History <LUZMARIA Villasenor - Last Filed: 06/01/21 18:59> Medical History AAA (abdominal aortic aneurysm) Acquired hypothyroidism Cancer of skull Essential hypertension Hearing loss (~2009) History of kidney cancer (~2009) Mixed hyperlipidemia Multiple myeloma Personal history of stroke with current residual effects Renal cell carcinoma (~2009) Stroke (~2016) Surgical History Anesthesia S/p nephrectomy (~2009) S/P shoulder surgery S/P wrist surgery Family History Mother Diabetes mellitus Father Heart disease Brother Multiple sclerosis Social History Smoking Status: Former smoker Smoking Status: Former smoker alcohol intake frequency: 0-2 drinks per day Substance Use Type: does not use Exam <LUZMARIA Villasenor - Last Filed: 06/01/21 18:59> Narrative Exam Narrative: Independently reviewed vitals signs and nursing notes. General: Awake, alert, well-nourished and developed, nontoxic, no cardiorespiratory distress Head/Neck: Atraumatic, neck full range of motion, trachea midline, no JVD or lymphadenopathy. Supple, nontender, no meningeal signs. Eyes: Pupils equal round and reactive, EOMI, conjunctiva normal, no scleral icterus or injections Nose: nares patent, no rhinorrhea, without purulent drainage or septal hematoma. Mouth/Throat: uvula midline, moist mucus membranes, posterior pharynx normal, no oral lesions, airway patent Cardio: Regular rate and rhythm, no peripheral edema Respiratory: respirations unlabored without wheezing, stridor, or rales. No retractions. GI: Abdomen soft, nontender, nondistended, no hepato-spenomegaly MSK: Moves all extremities, neurovascularly intact, no flank tenderness, bilateral knee edema without erythema, wound, warmth, firmness or ecchymosis Skin: Normal capillary refill, no rash Neuro: Normal speech and cognition, normal gait, A&O x3 Initial Vital Signs Initial Vital Signs: Vital Signs Temperature 97.8 F 06/01/21 11:51 Pulse Rate 74 06/01/21 11:51 Respiratory Rate 14 06/01/21 11:51 Blood Pressure 100/59 L 06/01/21 11:51 Pulse Oximetry 98 06/01/21 11:51 <Vladislav Felipe DO - Last Filed: 06/01/21 19:10> Initial Vital Signs Initial Vital Signs: Vital Signs Temperature 97.8 F 06/01/21 11:51 Pulse Rate 74 06/01/21 11:51 Respiratory Rate 14 06/01/21 11:51 Blood Pressure 100/59 L 06/01/21 11:51 Pulse Oximetry 98 06/01/21 11:51 Procedures <LUZMARIA Villasenor - Last Filed: 06/01/21 18:59> Joint Aspiration Joint Asp./Inject. 1: Time Out Performed: Yes Side of body: left Joint Aspirated: knee Ultrasound Guidance: No Skin Prep: Chlorhexidine Local Anesthetic: lidocaine 1% and with bicarb Amount of anesthesia used (mL): 6 Needle Size Used: 22G Fluid Obtained: clear (yellow) Total fluid obtained (mL): 24 Patient Tolerated Procedure: Well and No complications Complications: none Joint Asp./Inject. 2: Time Out Performed: Yes Side of body: right Joint Aspirated: knee Ultrasound Guidance: No Skin Prep: Chlorhexidine Local Anesthetic: lidocaine 1% and with bicarb Amount of anesthesia used (mL): 8 Needle Size Used: 22G Fluid Obtained: clear (yellow) Total fluid obtained (mL): 23 Patient Tolerated Procedure: Well and No complications Complications: none Course <LUZMARIA Villasenor - Last Filed: 06/01/21 18:59> Orders Ordered: ED Orders 06/01/21 12:09 XR knee LT 1to2V Stat XR knee RT 1to2V Stat 06/01/21 13:05 CBC Auto Diff [Complete Blood Count AUTO DIFF] Stat CMP [Comprehensive Metabolic Panel] Stat PTT [Partial Thromboplastin Time] Stat Prothrombin Time INR Stat Uric Acid Stat 06/01/21 15:00 Body Fluid Culture Stat Cell Count w Diff Body Fluid Stat 06/01/21 15:47 Cell Count w Diff Body Fluid Stat Crystals Body Fluid - IN-HOUSE Stat Miscellaneous to [facility] Routine Discontinued Medications Lidocaine/Sodium Bicarbonate (Lido 1%/Sod Bicarb 8.4% (10ml) 10 Ml Syringe) 10 ml INJ NOW ONE Stop: 06/01/21 14:16 Last Admin: 06/01/21 14:19 Dose: 10 ml Documented by: CHUY Lidocaine/Sodium Bicarbonate (Lido 1%/Sod Bicarb 8.4% (10ml) 10 Ml Syringe) 10 ml INJ NOW ONE Stop: 06/01/21 15:12 Last Admin: 06/01/21 16:03 Dose: 10 ml Documented by: BITA Consultations Consultation #1: Consult with Juliet BASS from [facility] who recommends joint aspiration of bilateral knees and a course of methylprednisolone with follow-up in the clinic for bilateral knee effusions. Patient has an upcoming appointment with Dr. Garcia this Sunday and an appointment with his oncologist on Sunday, he will follow-up with both of them accordingly and discuss the care that was done today. He will also follow-up with [facility] for his bilateral knee effusions. Vital Signs Vital signs: Vital Signs - 8 hr 06/01/21 11:51 06/01/21 12:31 06/01/21 13:00 Temperature 97.8 F Pulse Rate 74 64 66 Respiratory Rate 14 Blood Pressure 100/59 L Pulse Oximetry 98 99 97 06/01/21 13:30 06/01/21 13:32 06/01/21 14:00 Temperature Pulse Rate 61 60 60 Respiratory Rate 18 Blood Pressure 100/59 L Pulse Oximetry 97 98 98 06/01/21 14:30 06/01/21 15:00 06/01/21 15:30 Temperature Pulse Rate 63 63 60 Respiratory Rate Blood Pressure Pulse Oximetry 98 98 99 06/01/21 16:00 06/01/21 16:30 Temperature Pulse Rate 63 65 Respiratory Rate Blood Pressure Pulse Oximetry 99 98 <Vladislav Felipe, DO - Last Filed: 06/01/21 19:10> Orders Ordered: ED Orders 06/01/21 12:09 XR knee LT 1to2V Stat XR knee RT 1to2V Stat 06/01/21 13:05 CBC Auto Diff [Complete Blood Count AUTO DIFF] Stat CMP [Comprehensive Metabolic Panel] Stat PTT [Partial Thromboplastin Time] Stat Prothrombin Time INR Stat Uric Acid Stat 06/01/21 15:00 Body Fluid Culture Stat Cell Count w Diff Body Fluid Stat 06/01/21 15:47 Cell Count w Diff Body Fluid Stat Crystals Body Fluid - IN-HOUSE Stat Miscellaneous to [facility] Routine Discontinued Medications Lidocaine/Sodium Bicarbonate (Lido 1%/Sod Bicarb 8.4% (10ml) 10 Ml Syringe) 10 ml INJ NOW ONE Stop: 06/01/21 14:16 Last Admin: 06/01/21 14:19 Dose: 10 ml Documented by: CHUY Lidocaine/Sodium Bicarbonate (Lido 1%/Sod Bicarb 8.4% (10ml) 10 Ml Syringe) 10 ml INJ NOW ONE Stop: 06/01/21 15:12 Last Admin: 06/01/21 16:03 Dose: 10 ml Documented by: BITA Vital Signs Vital signs: Vital Signs - 8 hr 06/01/21 11:51 06/01/21 12:31 06/01/21 13:00 Temperature 97.8 F Pulse Rate 74 64 66 Respiratory Rate 14 Blood Pressure 100/59 L Pulse Oximetry 98 99 97 06/01/21 13:30 06/01/21 13:32 06/01/21 14:00 Temperature Pulse Rate 61 60 60 Respiratory Rate 18 Blood Pressure 100/59 L Pulse Oximetry 97 98 98 06/01/21 14:30 06/01/21 15:00 06/01/21 15:30 Temperature Pulse Rate 63 63 60 Respiratory Rate Blood Pressure Pulse Oximetry 98 98 99 06/01/21 16:00 06/01/21 16:30 Temperature Pulse Rate 63 65 Respiratory Rate Blood Pressure Pulse Oximetry 99 98 MDM - Extremity (Nontraumatic) <LUZMARIA Villasenor - Last Filed: 06/01/21 18:59> Lab Data Result diagrams: 06/01/21 13:05 06/01/21 13:05 Labs: Lab Results 06/01/21 06/01/21 06/01/21 Range/Units 13:05 13:05 13:05 WBC 5.9 (4.5-11.0) X10^3/uL RBC 3.63 L (4.5-5.9) X10^6/uL Hgb 11.4 L (13.5-17.5) g/dL Hct 33.8 L (41-53) % MCV 93.1 (80-100) fL MCH 31.3 (26-34) PG MCHC 33.6 (30-36) % RDW 16.2 H (11.6-14.8) % Plt Count 157 (150-400) X10^3/uL Neut % (Auto) Not Reportable Lymph % (Auto) Not Reportable Stanley % (Auto) Not Reportable Eos % (Auto) Not Reportable Baso % (Auto) Not Reportable Lymph # (Auto) Not Reportable Stanley # (Auto) Not Reportable Baso # (Auto) Not Reportable Total Counted 100 Seg Neutrophils % 51.0 (38-70) % Band Neutrophils % 13.0 H (3-7) % Lymphocytes % (Manual) 18.0 L (25-45) % Monocytes % (Manual) 18.0 H (2-11) % Neutrophils # (Manual) 3776 (2285-7505) /uL RBC Morphology Normal morphology PT 18.3 H (10.1-12.7) SECONDS INR 1.6 H (0.9-1.3) APTT 32 (26.4-36.2) SECONDS Sodium 137 (137-145) mmol/L Potassium 3.9 (3.4-5.1) mmol/L Chloride 105 (98-107) mmol/L Carbon Dioxide 26 (22-32) mmol/L BUN 20 (9-20) mg/dL Creatinine 1.48 H (0.66-1.25) mg/dL Estimated GFR 46.0 L (>60) mL/min BUN/Creatinine Ratio 13.5 (6-22) Glucose 182 H (80-110) mg/dL Uric Acid (3.5-8.5) mg/dL Calcium 9.0 (8.4-10.2) mg/dL Total Bilirubin 0.8 (0.2-1.3) mg/dL AST 21 (17-59) IU/L ALT 20 (<50) IU/L Alkaline Phosphatase 63 (38-126) U/L Total Protein 7.0 (6.3-8.2) g/dL Albumin 3.6 (3.5-5.0) g/dL Globulin 3.4 (1.7-4.1) g/dL Albumin/Globulin Ratio 1.1 (1.0-2.8) Fluid Color Fluid Appearance Fluid RBC /uL Fld Tot Nucleated Cell /uL Fluid Polynuclear WBCs % Fluid Mononuclear WBCs % Fluid Eosinophils % Fluid Other Cells % Fluid Crystals (NONE) Body Fluid Clot 06/01/21 06/01/21 06/01/21 Range/Units 13:05 15:00 15:47 WBC (4.5-11.0) X10^3/uL RBC (4.5-5.9) X10^6/uL Hgb (13.5-17.5) g/dL Hct (41-53) % MCV (80-100) fL MCH (26-34) PG MCHC (30-36) % RDW (11.6-14.8) % Plt Count (150-400) X10^3/uL Neut % (Auto) Lymph % (Auto) Stanley % (Auto) Eos % (Auto) Baso % (Auto) Lymph # (Auto) Stanley # (Auto) Baso # (Auto) Total Counted Seg Neutrophils % (38-70) % Band Neutrophils % (3-7) % Lymphocytes % (Manual) (25-45) % Monocytes % (Manual) (2-11) % Neutrophils # (Manual) (3341-9993) /uL RBC Morphology PT (10.1-12.7) SECONDS INR (0.9-1.3) APTT (26.4-36.2) SECONDS Sodium (137-145) mmol/L Potassium (3.4-5.1) mmol/L Chloride (98-107) mmol/L Carbon Dioxide (22-32) mmol/L BUN (9-20) mg/dL Creatinine (0.66-1.25) mg/dL Estimated GFR (>60) mL/min BUN/Creatinine Ratio (6-22) Glucose (80-110) mg/dL Uric Acid 3.0 L (3.5-8.5) mg/dL Calcium (8.4-10.2) mg/dL Total Bilirubin (0.2-1.3) mg/dL AST (17-59) IU/L ALT (<50) IU/L Alkaline Phosphatase (38-126) U/L Total Protein (6.3-8.2) g/dL Albumin (3.5-5.0) g/dL Globulin (1.7-4.1) g/dL Albumin/Globulin Ratio (1.0-2.8) Fluid Color Yellow Yellow Fluid Appearance Cloudy Slightly cloudy Fluid RBC 4358 4623 /uL Fld Tot Nucleated Cell 63947 10282 /uL Fluid Polynuclear WBCs 90 96 % Fluid Mononuclear WBCs 10 4 % Fluid Eosinophils 0 0 % Fluid Other Cells 0 0 % Fluid Crystals (NONE) Body Fluid Clot No clots present No clots present 06/01/21 Range/Units 15:47 WBC (4.5-11.0) X10^3/uL RBC (4.5-5.9) X10^6/uL Hgb (13.5-17.5) g/dL Hct (41-53) % MCV (80-100) fL MCH (26-34) PG MCHC (30-36) % RDW (11.6-14.8) % Plt Count (150-400) X10^3/uL Neut % (Auto) Lymph % (Auto) Stanley % (Auto) Eos % (Auto) Baso % (Auto) Lymph # (Auto) Stanley # (Auto) Baso # (Auto) Total Counted Seg Neutrophils % (38-70) % Band Neutrophils % (3-7) % Lymphocytes % (Manual) (25-45) % Monocytes % (Manual) (2-11) % Neutrophils # (Manual) (8002-2088) /uL RBC Morphology PT (10.1-12.7) SECONDS INR (0.9-1.3) APTT (26.4-36.2) SECONDS Sodium (137-145) mmol/L Potassium (3.4-5.1) mmol/L Chloride (98-107) mmol/L Carbon Dioxide (22-32) mmol/L BUN (9-20) mg/dL Creatinine (0.66-1.25) mg/dL Estimated GFR (>60) mL/min BUN/Creatinine Ratio (6-22) Glucose (80-110) mg/dL Uric Acid (3.5-8.5) mg/dL Calcium (8.4-10.2) mg/dL Total Bilirubin (0.2-1.3) mg/dL AST (17-59) IU/L ALT (<50) IU/L Alkaline Phosphatase (38-126) U/L Total Protein (6.3-8.2) g/dL Albumin (3.5-5.0) g/dL Globulin (1.7-4.1) g/dL Albumin/Globulin Ratio (1.0-2.8) Fluid Color Fluid Appearance Fluid RBC /uL Fld Tot Nucleated Cell /uL Fluid Polynuclear WBCs % Fluid Mononuclear WBCs % Fluid Eosinophils % Fluid Other Cells % Fluid Crystals None present (NONE) Body Fluid Clot Imaging Data Extremity x-ray #1: Radiologist's Impression: PROCEDURE:? XR KNEE LT 1TO2V ? INDICATIONS:? bilateral knee pain ? TECHNIQUE:? 3 views of the knee were acquired.? ? COMPARISON:? None. ? FINDINGS:? ? Bones:? No fractures or dislocations.? No suspicious bony lesions.? Mild medial and patellofemoral compartment osteoarthritis.? ? Soft tissues:? Moderate-sized suprapatellar joint effusion.? No suspicious soft tissue calcifications.? ? ? IMPRESSION:? ? 1. 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 ? 2. Moderate-sized nonspecific left knee joint effusion.? Dictated by: Rachelle Hernandez MD, PhD on 06/01/2021 at 12:40 ? ? Approved by: Rachelle Hernandez MD, PhD on 06/01/2021 at 12:41 ? Extremity x-ray #2: Radiologist's Impression: PROCEDURE:? XR KNEE RT 1TO2V ? INDICATIONS:? bilateral knee pain ? TECHNIQUE:? 3 views of the knee were acquired.? ? COMPARISON:? None. ? FINDINGS:? ? Bones:? No fractures or dislocations.? No suspicious bony lesions.? Mild medial and patellofemoral compartment osteoarthritis.? Enthesophyte noted the superior margin of the patella.? ? Soft tissues:? Small suprapatellar joint effusion.? No suspicious soft tissue calcifications.? ? ? IMPRESSION:? ? 1. 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 ? 2. Patellar bone spur. ? 3. Small nonspecific left knee joint effusion.? ? ? Dictated by: Rachelle Hernandez MD, PhD on 06/01/2021 at 12:41 ? ? Approved by: Rachelle Hernandez MD, PhD on 06/01/2021 at 12:42 ? MDM Narrative Medical decision making narrative: [age] year male with history of multiple myeloma in remission, on Revlimid and Plavix who presents to the emergency department for 4 days of bilateral knee swelling and pain. On exam patient had bilateral knee effusions without erythema, signs of cellulitis, warmth, or open wound. X-ray indicates a left mild to medial and patellofemoral compartment osteoarthritis with a moderately-sized left knee joint effusion. X-ray of his right knee indicates a left knee mild medial and patellofemoral compartment osteoarthritis with a patella bone spur and a small nonspecific right knee joint effusion. Lab work reveals no leukocytosis, platelet count of 157, PT 18.3, INR 1.6, PTT of 32, no electrolyte abnormalities, creatinine is 1.48 above baseline of 1.2 with a GFR today of 46. Glucose is mildly elevated. Serum uric acid is 3. No elevation in his liver enzymes or bilirubin. Joint aspiration of bilateral knees was completed and sent to lab for cell count, uric acid, Crystal, culture, and Gram stain. Fluid in both knees was clear yellow, rbc's were 4623 and total nucleated cells 10,546 with poly nuclear white blood cells 96 and mononuclear white blood cells of for with no eosinophils, no crystals, and no clots present. Uric acid of synovial fluid is still pending. Consult with Dr. Shaikh's PAC about patient's status. Patient has an upcoming bone marrow aspiration scheduled for Sunday which she kept the appointment for as patient's coags were not abnormal today, there is no sign of septic joint or systemic infection. She will reschedule the bone marrow aspiration if necessary. Patient declined need for pain medication, thought that he would be able to ambulate without difficulty as long as his knees were not immobilized. No knee immobilizer was were applied for high risk of fall with his bilateral knee pain. Patient understands to follow-up with Dr. 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 Differential includes septic arthrosis, gout, pseudogout, trauma, flare of osteoarthritis right is/inflammatory osteoarthritis, hemarthrosis, malignancy. Patient isappropriate and amenable to discharge home. Vital signs are stable on repeat examination is unremarkable. Patient has been informed of results. Patient has been given strict return to ER precautions for any new or worsening symptoms. Patient understands to follow up closely with outpatient providers as instructed. Patient understands plan and agrees to discharge home. All questions and concerns answered at this time. <Vladislav Felipe, DO - Last Filed: 06/01/21 19:10> Lab Data Labs: Lab Results 06/01/21 06/01/21 06/01/21 Range/Units 13:05 13:05 13:05 WBC 5.9 (4.5-11.0) X10^3/uL RBC 3.63 L (4.5-5.9) X10^6/uL Hgb 11.4 L (13.5-17.5) g/dL Hct 33.8 L (41-53) % MCV 93.1 (80-100) fL MCH 31.3 (26-34) PG MCHC 33.6 (30-36) % RDW 16.2 H (11.6-14.8) % Plt Count 157 (150-400) X10^3/uL Neut % (Auto) Not Reportable Lymph % (Auto) Not Reportable Stanley % (Auto) Not Reportable Eos % (Auto) Not Reportable Baso % (Auto) Not Reportable Lymph # (Auto) Not Reportable Stanley # (Auto) Not Reportable Baso # (Auto) Not Reportable Total Counted 100 Seg Neutrophils % 51.0 (38-70) % Band Neutrophils % 13.0 H (3-7) % Lymphocytes % (Manual) 18.0 L (25-45) % Monocytes % (Manual) 18.0 H (2-11) % Neutrophils # (Manual) 3776 (3917-4760) /uL RBC Morphology Normal morphology PT 18.3 H (10.1-12.7) SECONDS INR 1.6 H (0.9-1.3) APTT 32 (26.4-36.2) SECONDS Sodium 137 (137-145) mmol/L Potassium 3.9 (3.4-5.1) mmol/L Chloride 105 (98-107) mmol/L Carbon Dioxide 26 (22-32) mmol/L BUN 20 (9-20) mg/dL Creatinine 1.48 H (0.66-1.25) mg/dL Estimated GFR 46.0 L (>60) mL/min BUN/Creatinine Ratio 13.5 (6-22) Glucose 182 H (80-110) mg/dL Uric Acid (3.5-8.5) mg/dL Calcium 9.0 (8.4-10.2) mg/dL Total Bilirubin 0.8 (0.2-1.3) mg/dL AST 21 (17-59) IU/L ALT 20 (<50) IU/L Alkaline Phosphatase 63 (38-126) U/L Total Protein 7.0 (6.3-8.2) g/dL Albumin 3.6 (3.5-5.0) g/dL Globulin 3.4 (1.7-4.1) g/dL Albumin/Globulin Ratio 1.1 (1.0-2.8) Fluid Color Fluid Appearance Fluid RBC /uL Fld Tot Nucleated Cell /uL Fluid Polynuclear WBCs % Fluid Mononuclear WBCs % Fluid Eosinophils % Fluid Other Cells % Fluid Crystals (NONE) Body Fluid Clot 06/01/21 06/01/21 06/01/21 Range/Units 13:05 15:00 15:47 WBC (4.5-11.0) X10^3/uL RBC (4.5-5.9) X10^6/uL Hgb (13.5-17.5) g/dL Hct (41-53) % MCV (80-100) fL MCH (26-34) PG MCHC (30-36) % RDW (11.6-14.8) % Plt Count (150-400) X10^3/uL Neut % (Auto) Lymph % (Auto) Stanley % (Auto) Eos % (Auto) Baso % (Auto) Lymph # (Auto) Stanley # (Auto) Baso # (Auto) Total Counted Seg Neutrophils % (38-70) % Band Neutrophils % (3-7) % Lymphocytes % (Manual) (25-45) % Monocytes % (Manual) (2-11) % Neutrophils # (Manual) (1521-0234) /uL RBC Morphology PT (10.1-12.7) SECONDS INR (0.9-1.3) APTT (26.4-36.2) SECONDS Sodium (137-145) mmol/L Potassium (3.4-5.1) mmol/L Chloride (98-107) mmol/L Carbon Dioxide (22-32) mmol/L BUN (9-20) mg/dL Creatinine (0.66-1.25) mg/dL Estimated GFR (>60) mL/min BUN/Creatinine Ratio (6-22) Glucose (80-110) mg/dL Uric Acid 3.0 L (3.5-8.5) mg/dL Calcium (8.4-10.2) mg/dL Total Bilirubin (0.2-1.3) mg/dL AST (17-59) IU/L ALT (<50) IU/L Alkaline Phosphatase (38-126) U/L Total Protein (6.3-8.2) g/dL Albumin (3.5-5.0) g/dL Globulin (1.7-4.1) g/dL Albumin/Globulin Ratio (1.0-2.8) Fluid Color Yellow Yellow Fluid Appearance Cloudy Slightly cloudy Fluid RBC 4358 4623 /uL Fld Tot Nucleated Cell 51229 93209 /uL Fluid Polynuclear WBCs 90 96 % Fluid Mononuclear WBCs 10 4 % Fluid Eosinophils 0 0 % Fluid Other Cells 0 0 % Fluid Crystals (NONE) Body Fluid Clot No clots present No clots present 06/01/21 Range/Units 15:47 WBC (4.5-11.0) X10^3/uL RBC (4.5-5.9) X10^6/uL Hgb (13.5-17.5) g/dL Hct (41-53) % MCV (80-100) fL MCH (26-34) PG MCHC (30-36) % RDW (11.6-14.8) % Plt Count (150-400) X10^3/uL Neut % (Auto) Lymph % (Auto) Stanley % (Auto) Eos % (Auto) Baso % (Auto) Lymph # (Auto) Stanley # (Auto) Baso # (Auto) Total Counted Seg Neutrophils % (38-70) % Band Neutrophils % (3-7) % Lymphocytes % (Manual) (25-45) % Monocytes % (Manual) (2-11) % Neutrophils # (Manual) (4888-4635) /uL RBC Morphology PT (10.1-12.7) SECONDS INR (0.9-1.3) APTT (26.4-36.2) SECONDS Sodium (137-145) mmol/L Potassium (3.4-5.1) mmol/L Chloride (98-107) mmol/L Carbon Dioxide (22-32) mmol/L BUN (9-20) mg/dL Creatinine (0.66-1.25) mg/dL Estimated GFR (>60) mL/min BUN/Creatinine Ratio (6-22) Glucose (80-110) mg/dL Uric Acid (3.5-8.5) mg/dL Calcium (8.4-10.2) mg/dL Total Bilirubin (0.2-1.3) mg/dL AST (17-59) IU/L ALT (<50) IU/L Alkaline Phosphatase (38-126) U/L Total Protein (6.3-8.2) g/dL Albumin (3.5-5.0) g/dL Globulin (1.7-4.1) g/dL Albumin/Globulin Ratio (1.0-2.8) Fluid Color Fluid Appearance Fluid RBC /uL Fld Tot Nucleated Cell /uL Fluid Polynuclear WBCs % Fluid Mononuclear WBCs % Fluid Eosinophils % Fluid Other Cells % Fluid Crystals None present (NONE) Body Fluid Clot Discharge Plan Departure Patient Disposition: Home Clinical Impression: Bilateral knee effusions, Multiple myeloma Instructions: DI for Knee Effusion Activity Restrictions/Additional Instructions: *You have been diagnosed with bilateral knee effusions most likely related to your osteoarthritis. The fluid did not appear infected, it was not bloody, there were no crystals, and there was mild osteoarthritis viewed on your x-ray. Please excelsior picker this steroid pack from the pharmacy and take it as directed. Charo hensley follow-up with Dr. Garcia on Sunday as scheduled, and your oncology doctor on Sunday. Please do not change your Plavix dosing or your Revlimid until you discuss this with either provider. Your liver function tests were normal and so were your coagulation times. You do not have signs of a systemic infection which is great. I hope it feels better at home, for any worsening of this knee pain, the inability to bear weight, redness, worsening swelling, fever, or streaking up her leg please come to the emergency department immediately. *What to do: *Please continue to take your regular medications as directed. [x ] New medication prescriptions sent to your pharmacy: [[facility] ] [ ] New medication written as a paper prescription [ ] No new medications given *Please follow up with your primary care provider in 2-3 days, call for an appointment. Let them know you were seen in the Emergency Department and that we ask that you be seen in follow up. We will electronically transmit a record of today's note if your PCP is in our system *If you do not have a primary care provider please contact the [facility] Resource line at [phone]. They will ask some questions about your medical history and help get you set up with a doctor in the community. *Return to Emergency Department if you should have any new, worsening or concerning symptoms, such as [fever greater than 101F, chills, worsening pain, persistent vomiting or other bothersome symptoms] Prescriptions: New methylprednisolone [Medrol (Dex)] 4 mg tablets,dose pack 4 mg PO DAILY Qty: 21 0RF No Action aspirin 81 mg tablet 81 mg PO DAILY 0RF atorvastatin 80 mg tablet 80 mg PO QPM Qty: 90 1RF nitrofurantoin macrocrystal 100 mg capsule 100 mg PO BID Qty: 14 0RF Rx Instructions: must administer with a meal/food metformin 500 mg tablet 500 mg PO BID Qty: 60 3RF tamsulosin 0.4 mg capsule 0.4 mg PO BID 0RF levothyroxine 125 mcg tablet 125 mcg PO DAILY 0RF acetaminophen [Tylenol 8 Hour] 650 mg tablet extended release 650 mg PO Q6H PRN (Reason: fever or pain) 0RF dexamethasone 2 mg tablet 8 mg PO QWEEK 0RF Revlimid 15 mg capsule 15 mg PO .COMPLEX 0RF Rx Instructions: 15 mg PO ON DAYS 1-21; Repeat after 28 days losartan 50 mg tablet 50 mg PO DAILY 0RF clopidogrel 75 mg tablet 75 mg PO DAILY Qty: 90 2RF metoprolol succinate 25 mg tablet extended release 24 hr 25 mg PO DAILY Qty: 90 2RF valacyclovir 500 mg tablet 500 mg PO BID Qty: 180 3RF budesonide-formoterol [Symbicort] 160-4.5 mcg/actuation Hfa Aerosol Inhaler 2 puff INHALATION BID 0RF albuterol sulfate 90 mcg/actuation HFA aerosol inhaler 2 puff inhalation Q4-6H PRN (Reason: shortness of breath or wheezing) Qty: 18 0RF Referrals: [facility] [Provider Group] - 5-7 days Juju Shaikh [Non-Staff] - Per Garcia MD [Primary Care Provider] - <Vladislav Felipe, DO - Last Filed: 06/01/21 19:10> Cosign ED [facility]estation: Dr Felipe Co-Sign Statement: I was available for consultation during this patient's emergency department visit. This chart is signed by myself for administrative purposes only. I did not have direct contact with this patient during this visit. They were seen independently by the APC.
[2021-06-01 13:21] LABS: Hematocrit 33.8 % (41-53); Hemoglobin 11.4 g/dL (13.5-17.5); Mean Corpuscular HGB Conc 33.6 % (30-36); Mean Corpuscular Hemoglobin 31.3 PG (26-34); Mean Corpuscular Volume 93.1 fL (80-100); Platelet Count 157 X10^3/uL (150-400); Red Blood Cell Count 3.63 X10^6/uL (4.5-5.9); Red Cell Distribution Width 16.2 % (11.6-14.8); White Blood Cell Count 5.9 X10^3/uL (4.5-11.0)
[2021-06-01 13:22] LABS: Add Manual Diff / Slide Review YES
[2021-06-01 13:30] LABS: INR 1.6 (0.9-1.3); Prothrombin Time 18.3 SECONDS (10.1-12.7)
[2021-06-01 13:32] LABS: PTT Partial Thromboplastin Tim 32 SECONDS (26.4-36.2)
[2021-06-01 13:46] LABS: Neutrophils Absolute Manual 3776 /uL (3000-5900); RBC Morphology Normal Morphology; Total Cells Counted 100
[2021-06-01 13:50] LABS: Alanine Aminotransferase 20 IU/L (<50); Albumin 3.6 g/dL (3.5-5.0); Albumin Globulin Ratio 1.1 (1.0-2.8); Alkaline Phosphatase 63 U/L (38-126); Aspartate Aminotransferase 21 IU/L (17-59); BUN Creatinine Ratio 13.5 (6-22); Bilirubin Total 0.8 mg/dL (0.2-1.3); Blood Urea Nitrogen 20 mg/dL (9-20); Carbon Dioxide 26 mmol/L (22-32); Chloride 105 mmol/L (98-107); Globulin 3.4 g/dL (1.7-4.1); Glucose 182 mg/dL (80-110); HEMOLYSIS < 15 (0-50); Potassium 3.9 mmol/L (3.4-5.1); Sodium 137 mmol/L (137-145)
[2021-06-01] MEDS: LIDO 1%/SOD BICARB 8.4% (10ML) 10 ML SYRINGE INJ ×2 (14:19→16:03)
[2021-06-01 15:19] LABS: Body Fluid Red Blood Cells 4358 /uL; Body Fluid Tot Nucleated Cells 38445 /uL
[2021-06-01 15:34] LABS: Body Fluid Appearance CLOUDY; Body Fluid Clotted? NO CLOTS PRESENT; Body Fluid Color YELLOW
[2021-06-01 16:05] LABS: Body Fluid Red Blood Cells 4623 /uL; Body Fluid Tot Nucleated Cells 10546 /uL
[2021-06-01 16:10] LABS: Crystals Body Fluid - IN-HOUSE NONE Present
[2021-06-01 16:13] LABS: Eosinophils Body Fluid 0 %; Mononuclear WBC Body Fluid 10 %; Polynuclear WBC Body Fluid 90 %
[2021-06-01 16:13] LABS: Body Fluid Appearance SLIGHTLY CLOUDY; Body Fluid Clotted? NO CLOTS PRESENT; Body Fluid Color YELLOW
[2021-06-01 16:14] LABS: Other Cells Body Fluid 0 %
[2021-06-01 16:43] LABS: Eosinophils Body Fluid 0 %; Mononuclear WBC Body Fluid 4 %; Other Cells Body Fluid 0 %; Polynuclear WBC Body Fluid 96 %
== END 2021-06-01 17:07 | disposition home or self-care (01) ==
PROVIDERS: Emergency Provider Nurse Practitioner Critical Care Medicine; PCP Internal Medicine
DX: M25.462 Effusion, left knee (principal); M25.461 Effusion, right knee; C90.00 Multiple myeloma not having achieved remission
CPT/HCPCS: 20610; 36415; 73560; 80053; 84550; 84560; 85007; 85025; 85610; 85730; 87070; 87075; 87205; 89051; 89060; 99284

== ENCOUNTER 2021-06-23 16:38 | Observation (INO) | payer MEDICARE, SELFPAY ==
[2021-06-23] VITALS (9 sets, daily range): BP systolic 124–155; BP diastolic 58–63; PULSE 48–62; RESP 16–32; TEMP 36.4–36.5; O2SAT 91–100; BMI 34.6
--- NOTE | 2021-06-23 16:43 | DI.CT.S_ITS ---
PROCEDURE: CT STROKE INDICATIONS: CODE STROKE TECHNIQUE: Noncontrast 4.5 mm thick angled axial sections acquired from the foramen magnum to the vertex, with coronal reformats. For radiation dose reduction, the following was used: automated exposure control, adjustment of mA and/or kV according to patient size. COMPARISON: [facility], CT, CT HEAD/BRAIN WO CON, 08/17/2020, 12:25. [facility], MR, MR HEAD/BRAIN WO/W CON, 08/25/2020, 7:12. FINDINGS: Image quality: Excellent. CSF spaces: Basal cisterns are patent. No extra-axial fluid collections. The ventricles are symmetric in size and shape. Brain: No intracranial bleeds or masses. There is cerebral volume loss for age, with resultant ventricular and sulcal prominence. There are periventricular and deep white matter chronic small vessel ischemic changes. There is intracranial internal carotid artery and vertebral artery atherosclerosis. Skull and face: Postsurgical changes compatible with right parietal-occipital craniectomy. visualized facial bones appear intact, without suspicious lesions. Sinuses: Visualized sinuses and mastoids are clear. IMPRESSION: No acute intracranial disease process. Attempts to telephoned results to Dr. Hodges on June 23, 2021 at 4:58 p.m. and 5:06 p.m. were unsuccessful. This study fulfills neurological imaging criteria for inclusion or exclusion of acute stroke therapies based on available published neurological guidelines. Dictated by: Rachelle Hernandez MD, PhD on 06/23/2021 at 16:58 Approved by: Rachelle Hernandez MD, PhD on 06/23/2021 at 17:07
--- NOTE | 2021-06-23 16:44 | DI.RAD.S_ITS ---
PROCEDURE: XR CHEST 1V INDICATIONS: Possible stroke TECHNIQUE: One view of the chest was acquired. COMPARISON: [facility], CR, XR CHEST 1V, 09/09/2020, 17:57. FINDINGS: Surgical changes and devices: None. Lungs and pleura: Mild reticulonodular pulmonary opacity with basilar predominance. No pleural effusions or pneumothorax. Mediastinum: Mediastinal contours appear normal. Heart size is normal. Bones and chest wall: No suspicious bony lesions. Overlying soft tissues appear unremarkable. IMPRESSION: Mild atypical pneumonia. Dictated by: Ren Stephenson M.D. on 06/23/2021 at 16:58 Approved by: Ren Stephenson M.D. on 06/23/2021 at 16:58
[2021-06-23 17:02] LABS: INR 1.3 (0.9-1.3); Prothrombin Time 14.2 SECONDS (10.1-12.7)
[2021-06-23 17:05] LABS: PTT Partial Thromboplastin Tim 32 SECONDS (26.4-36.2)
--- NOTE | 2021-06-23 17:07 | ED.NEUROSD ---
HPI - Neuro Symptoms/Deficit General Chief Complaint: Neuro Symptoms/Deficit Stated Complaint: possible stroke Time Seen by Provider: 06/23/21 17:06 Source: patient Mode of arrival: Ambulatory History of Present Illness HPI Narrative: The patient was at home, having a conversation. He developed right hand numbness about 1 hour prior to arrival here. He never developed right hand weakness. He has no confusion, no speech changes, and no headache. He has no visual changes. He walked in the ER, no other extremity weakness or numbness. He has a history of a stroke about 12 years ago. The numbness seemed to spread from his right hand to his right arm. He is now improved, the event never got worse than the numbness. He does awaken at night sometimes with numb hands. He has never been diagnosed with CTS. 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 He had an [place] at that time. Multiple myeloma discovered. He is ongoing care for the MM. It is noted he is on Plavix and atorvastatin. On Anticoagulants: Yes (plavix) Related Data Home Medications Medication Instructions Recorded Confirmed levothyroxine 125 mcg tablet 125 mcg PO DAILY 08/24/20 06/03/21 tamsulosin 0.4 mg capsule 0.4 mg PO BID cap 08/24/20 06/03/21 acetaminophen 650 mg 650 mg PO Q6H PRN tab 09/14/20 06/03/21 tablet,extended release (Tylenol 8 Hour) lenalidomide 15 mg capsule 15 mg PO .COMPLEX cap 11/16/20 06/03/21 (Revlimid) losartan 50 mg tablet 50 mg PO DAILY 11/16/20 06/03/21 dexamethasone 2 mg tablet 8 mg PO QWEEK tab 03/18/21 06/03/21 carvedilol 25 mg tablet 25 mg PO BID tab 06/03/21 06/03/21 fluticasone fur. 200 mcg-umeclid 1 inh INHALATION DAILY ea 06/03/21 06/03/21 62.5 mcg-vilant 25 mcg inhalat.powder (Trelegy Ellipta) Previous Rx's Medication Instructions Recorded albuterol sulfate 90 mcg/actuation 2 puff INHALATION Q4-6H PRN #18 g 09/07/20 aerosol inhaler clopidogrel 75 mg tablet 75 mg PO DAILY #90 tab 11/16/20 valacyclovir 500 mg tablet 500 mg PO BID #180 tab 11/16/20 atorvastatin 80 mg tablet 80 mg PO QPM #90 tab 11/22/20 methylprednisolone 4 mg tablets in 4 mg PO DAILY #21 ea 06/01/21 a dose pack (Medrol (Dex)) oxycodone 5 mg tablet 5 mg PO Q6H PRN #30 tab 06/03/21 Allergies Allergy/AdvReac Type Severity Reaction Status Date / Time metformin AdvReac Intermediate diarrhea Verified 06/03/21 15:40 Review of Systems Constitutional Constitutional: Reports as per HPI, Denies body ache(s), Denies chills, Denies fatigue and Denies fever(s) Eyes Eyes: Denies change in vision ENT Ears, Nose, Mouth, and Throat: Denies sinus pressure and Denies sore throat Cardiovascular Cardiovascular: Denies chest pain, Denies rapid heart rate, Denies lightheadedness and Denies dyspnea Respiratory Respiratory: Denies chest congestion, Denies cough and Denies dyspnea Gastrointestinal Gastrointestinal: Denies change in stool character, Denies nausea and Denies vomiting Genitourinary Genitourinary: Denies dysuria Musculoskeletal Musculoskeletal: Denies back pain, Denies arthralgias and Denies myalgias Integumentary/Breasts Skin/Breast: Denies rash Neurologic Neurologic: Reports as per HPI, Denies confusion and Denies memory loss Psychiatric Psychiatric: Denies anxiety, Denies confusion, Denies depression and Denies memory loss Endocrine Endocrine: Denies fatigue Hematologic/Lymphatic On Anticoagulants: Yes (plavix) Patient History Medical History AAA (abdominal aortic aneurysm) Acquired hypothyroidism Cancer of skull Essential hypertension Hearing loss (~2009) History of kidney cancer (~2009) Mixed hyperlipidemia Multiple myeloma Personal history of stroke with current residual effects Renal cell carcinoma (~2009) Stroke (~2017) Surgical History Anesthesia S/p nephrectomy (~2009) S/P shoulder surgery S/P wrist surgery Family History Mother Diabetes mellitus Father Heart disease Brother Multiple sclerosis Social History Smoking Status: Former smoker Smoking Status: Former smoker alcohol intake frequency: 0-2 drinks per day Substance Use Type: does not use Exam Initial Vital Signs Initial Vital Signs: Vital Signs Temperature 97.7 F 06/23/21 16:40 Pulse Rate 54 L 06/23/21 16:40 Respiratory Rate 20 06/23/21 16:40 Blood Pressure 132/60 06/23/21 16:40 Pulse Oximetry 98 06/23/21 16:40 Const General: cooperative, healthy appearing, comfortable, well developed and well groomed Orientation: Orientation (Normal) [facility] Head: normocephalic and atraumatic Face and sinus: normal facial exam Mouth: oral mucosae normal Throat: posterior oropharynx normal Eyes Visual Faye: normal visual faye by confrontation Pupils: PERRL EOM: EOM intact bilaterally Neck Neck: normal visual inspection, No JVD and other (No bruit. Carotid pulses are faint.) Thyroid: thyroid normal Chest Chest: normal inspection of the chest Resp Effort & Inspection: normal respiratory effort Auscultation: clear to auscultation bilaterally Cardio Rate: regular rate Rhythm: regular rhythm Heart Sounds: S1 normal, S2 normal, no click, no gallops and no murmurs GI Inspection: normal to inspection and non-distended Palpation: soft and No tender Percussion: normal to percussion Auscultation: normal bowel sounds Back/Spine/Pelvis Back: normal to inspection Skin General: no rashes or lesions noted Neuro General: patient alert, patient oriented x3 and no focal motor deficits Cognition: normal cognition Other: See NIHSS evaluation. Psych Mental Status: mental status grossly normal Scores NIH Stroke Scale Level of Conciousness: Alert, keenly responsive Ask month/age: Answers both questions correctly. Open/close eyes, close hand: Performs both tasks correctly Best gaze horizontal: Normal Visual faye: No visual loss Facial palsy: Normal symetrical movement Left arm drift: No drift for full 10 sec Right arm drift: No drift for full 10 sec Left leg drift: No drift for full 5 sec Right leg drift: No drift for full 5 sec Limb ataxia: Absent Sensory on face/arms/legs: Mild to moderate sensory loss, can tell touch Best language: No aphasia, normal Dysarthria: Normal Extinction or inattention: No abnormality Total NIH Stroke scale score: 1 Course Course Course Narrative: The patient already takes atorvastatin and Plavix. Aspirin was started after the initial head CT. The patient's right hand numbness resolved. A repeat NIHSS is 0. CTA of the head neck is most significant for 9% stenosis of the left internal carotid artery. The case was discussed with Dr. Lynn, Stroke Neurology at [facility]. The patient is not a tPA candidate. He may be can not for vascular intervention. Dual platelet therapy as well as atorvastatin 80 mg daily was recommended. Those medications are are ready utilized. Dr. Lynn suggested vascular consultation. I discussed the situation with Dr. Osuna, at [facility]. He agrees with medications. Following completion of a stroke workup, including MRI and echo, Dr. Osuna has agreed to see the patient quickly, the next several days. The case was then discussed with the patient's PCM, Dr. Garcia. The patient was admitted for observation, monitoring, and completion of the felt evaluation. Orders Ordered: ED Orders 06/23/21 16:43 CT Stroke Stat Complete Blood Count AUTO DIFF Stat Comprehensive Metabolic Panel Stat Partial Thromboplastin Time Stat Prothrombin Time INR Stat Troponin & CK Cardiac Panel Stat 06/23/21 16:44 XR chest 1V Stat Urine Drug Screen, Rapid Stat EKG-12 Lead Stat 06/23/21 16:53 COVID19 -Nasal swab/Pre-Proc Stat 06/23/21 17:26 CT angio head and neck Stat Sodium Chloride (Normal Saline 0.9%) 1,000 mls @ 250 mls/hr IV CONT ABRIL Last Admin: 06/23/21 17:45 Dose: 250 mls/hr Documented by: JEAN PIERRE Discontinued Medications Aspirin (Aspirin 81 Mg Chew Tab) 324 mg PO NOW ONE Stop: 06/23/21 18:15 Last Admin: 06/23/21 18:19 Dose: 324 mg Documented by: JEAN PIERRE Vital Signs Vital signs: Vital Signs - 8 hr 06/23/21 16:40 06/23/21 16:52 06/23/21 16:53 Temperature 97.7 F Pulse Rate 54 L 62 59 L Respiratory Rate 20 22 32 H Blood Pressure 132/60 124/61 Pulse Oximetry 98 91 99 06/23/21 17:00 06/23/21 17:30 06/23/21 17:31 Temperature Pulse Rate 56 L 49 L 50 L Respiratory Rate 24 17 20 Blood Pressure 132/60 134/60 Pulse Oximetry 98 99 97 06/23/21 17:46 06/23/21 18:00 Temperature Pulse Rate 50 L 48 L Respiratory Rate 19 21 Blood Pressure 134/63 124/58 L Pulse Oximetry 99 100 MDM - Neuro Symptoms/Deficit Lab Data Result diagrams: 06/23/21 16:43 06/23/21 16:43 Labs: Lab Results 06/23/21 06/23/21 06/23/21 Range/Units 16:43 16:43 16:43 WBC 5.3 (4.5-11.0) X10^3/uL RBC 4.06 L (4.5-5.9) X10^6/uL Hgb 12.4 L (13.5-17.5) g/dL Hct 36.7 L (41-53) % MCV 90.3 (80-100) fL MCH 30.4 (26-34) PG MCHC 33.7 (30-36) % RDW 16.7 H (11.6-14.8) % Plt Count 125 L (150-400) X10^3/uL Neut % (Auto) 41.5 L (50-75) % Lymph % (Auto) 32.4 (25-40) % Jefferson % (Auto) 18.4 H (3-14) % Eos % (Auto) 7.4 H (2-4) % Baso % (Auto) 0.3 (0-2) % Neut # (Auto) 2200 (4170-8805) /uL Lymph # (Auto) 1700 (5574-5120) /uL Jefferson # (Auto) 1000 H (0-900) /uL Eos # (Auto) 400 (0-450) /uL Baso # (Auto) 0 (0-100) /uL PT 14.2 H (10.1-12.7) SECONDS INR 1.3 (0.9-1.3) APTT 32 (26.4-36.2) SECONDS Sodium 138 (137-145) mmol/L Potassium 3.9 (3.4-5.1) mmol/L Chloride 108 H (98-107) mmol/L Carbon Dioxide 23 (22-32) mmol/L BUN 20 (9-20) mg/dL Creatinine 1.64 H (0.66-1.25) mg/dL Estimated GFR 40.8 L (>60) mL/min BUN/Creatinine Ratio 12.2 (6-22) Glucose 107 (80-110) mg/dL Calcium 8.8 (8.4-10.2) mg/dL Total Bilirubin 0.6 (0.2-1.3) mg/dL AST 28 (17-59) IU/L ALT 22 (<50) IU/L Alkaline Phosphatase 66 (38-126) U/L Total Creatine Kinase 75 (55-170) U/L CK-MB (CK-2) TNP CK-MB (CK-2) Rel Index TNP Troponin I < 0.012 (0.01-0.034) ng/mL Total Protein 7.6 (6.3-8.2) g/dL Albumin 4.0 (3.5-5.0) g/dL Globulin 3.6 (1.7-4.1) g/dL Albumin/Globulin Ratio 1.1 (1.0-2.8) SARS-CoV-2 (PCR) (Negative) 06/23/21 Range/Units 16:53 WBC (4.5-11.0) X10^3/uL RBC (4.5-5.9) X10^6/uL Hgb (13.5-17.5) g/dL Hct (41-53) % MCV (80-100) fL MCH (26-34) PG MCHC (30-36) % RDW (11.6-14.8) % Plt Count (150-400) X10^3/uL Neut % (Auto) (50-75) % Lymph % (Auto) (25-40) % Jefferson % (Auto) (3-14) % Eos % (Auto) (2-4) % Baso % (Auto) (0-2) % Neut # (Auto) (2519-6229) /uL Lymph # (Auto) (3831-1652) /uL Jefferson # (Auto) (0-900) /uL Eos # (Auto) (0-450) /uL Baso # (Auto) (0-100) /uL PT (10.1-12.7) SECONDS INR (0.9-1.3) APTT (26.4-36.2) SECONDS Sodium (137-145) mmol/L Potassium (3.4-5.1) mmol/L Chloride (98-107) mmol/L Carbon Dioxide (22-32) mmol/L BUN (9-20) mg/dL Creatinine (0.66-1.25) mg/dL Estimated GFR (>60) mL/min BUN/Creatinine Ratio (6-22) Glucose (80-110) mg/dL Calcium (8.4-10.2) mg/dL Total Bilirubin (0.2-1.3) mg/dL AST (17-59) IU/L ALT (<50) IU/L Alkaline Phosphatase (38-126) U/L Total Creatine Kinase (55-170) U/L CK-MB (CK-2) CK-MB (CK-2) Rel Index Troponin I (0.01-0.034) ng/mL Total Protein (6.3-8.2) g/dL Albumin (3.5-5.0) g/dL Globulin (1.7-4.1) g/dL Albumin/Globulin Ratio (1.0-2.8) SARS-CoV-2 (PCR) Negative (Negative) Imaging Data CT scan - head: Radiologist's Impression: No acute findings. Chest x-ray: Radiologist's Impression: Read by Radiology as suggestive of atypical pneumonia. The patient has no corresponding symptoms. CTA head and neck: Radiologist's Impression: Launch?[place] [address] CT Scan Report Signed Patient: Nicanor Mccarthy MR#: [id number] : 1940 Acct:[id number] Age/Sex: 80 / M Date of Service: 06/23/21 Loc: ED Accession Number: [id number] ?? Procedure: CT angio head and neck Ordering Provider: Vince Hodges MD PROCEDURE:? CT ANGIO HEAD AND NECK ? INDICATIONS:? TIA/CVA. ? TECHNIQUE:? After the administration of intravenous contrast, 1 mm thick sections acquired from the aortic arch through the [place] of [place].? Post-contrast 4.5 mm thick sections then re-acquired from the foramen magnum to the vertex.? 3-dimensional qzqlgep-xhwyellij-ttatxpcqoa (MIP) and/or volume rendering reformats were acquired of the central intracranial vasculature and neck separately. ? COMPARISON:? [facility], CT, CT STROKE, 06/23/2021, 16:45. ? FINDINGS:? Image quality:? Excellent.? ? BRAIN:? CSF spaces:? Ventricles are normal in size and shape.? Basal cisterns are patent.? No extra-axial fluid collections.? ? Brain:? No midline shift.? No intracranial bleeds or masses.? Henning-white matter interface appears intact.? No area of abnormal contrast enhancement is noted.? Age related atrophy and mild periventricular and deep white matter chronic small vessel ischemic changes are seen unchanged from earlier study. ? Skull and face:? Again noted is prior right parietal occipital craniectomy unchanged from prior study.? Orbits appear normal.? ? Sinuses:? Sinuses and mastoids are clear.? ? HEAD CT ANGIOGRAPHY:? Anterior circulation:? Intracranial internal carotid arteries are normal in size and flow.? Diminutive appearance of right A1 segment of anterior cerebral artery is seen suggestive of congenital etiology versus high-grade stenosis involving right A1 segment.? More distal portion of right anterior cerebral arteries show normal size and flow.? Left anterior cerebral artery show normal size and flow.? The flow within the middle cerebral arteries is normal and symmetric.? The anterior communicating artery is seen.? No aneurysms are seen.? ? Posterior circulation:? Visualized portions of the vertebral arteries demonstrate normal caliber, and join to form a normal appearing basilar artery.? Flow within the posterior cerebral arteries is normal and symmetric.? No aneurysms are seen.? ? NECK CT ANGIOGRAPHY:? Carotid system:? The great vessels demonstrate a conventional anatomy as they arise from the aortic arch.? The origins of the common carotid arteries appear patent.? The common carotid arteries demonstrate normal caliber and courses.? Mild atherosclerotic calcifications seen involving distal right common carotid artery and origin of right internal carotid artery with less than 50% stenosis.? Moderate amount of atherosclerotic plaques are noted involving left carotid bulb and origin of left common carotid artery with high-grade greater than 90% stenosis involving proximal 1.2 cm segment of left internal carotid artery.? More distal portion of left internal carotid artery show no hemodynamically significant stenosis. ? Posterior circulation:? The origins of the vertebral arteries both appear widely patent.? The more superior extracranial portions of both vertebral arteries also demonstrate normal courses and calibers.? They join to form a normal appearing basilar artery.? ? Soft tissues:? Visualized neck soft tissues demonstrate no suspicious abnormalities.? ? Bones:? No suspicious bony lesions.? Visualized cervical spine appears normally aligned.? IMPRESSION:? 1. No CT evidence of acute intracranial bleed, midline shift or mass effect.? No area of abnormal intracranial enhancement. 2.? Prior right posterior parietal occipital craniectomy with postsurgical changes. 3. Suggestion of high-grade stenosis involving A1 segment of right anterior cerebral artery versus congenitally small right A1 segment.? No other hemodynamically significant stenosis or aneurysm is seen in visualized intracranial circulation. 4.? 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 5. No hemodynamically significant stenosis is seen in right carotid arteries or bilateral vertebral arteries.? ? Any quantitative measurements of stenosis were performed using NASCET criteria.? ? ? Dictated by: Joe Zapata M.D. on 06/23/2021 at 18:03 ? ? Approved by: Joe Zapata M.D. on 06/23/2021 at 18:12?? ECG Data Attestation: I personally reviewed and interpreted this ECG as follows: (Sinus bradycardia rate 55 beats per minute. Normal intervals. No ectopy. No acute ST T wave changes.) Critical Care Time Critical Care Time Critical Care Time: Yes Total Critical Care Time: 75 Attestation: Critical care includes the patient initial evaluation, and repeat evaluation. Labs, EKG and radiology data was evaluated. Multiple consult is were required as noted above. Patient has been notified of the clinical situation and admission. Discharge Plan Departure Patient Disposition: Admitted as Observation Clinical Impression: Brain TIA, Essential hypertension, Mixed hyperlipidemia, Left carotid artery stenosis Admit Date/Time: 06/23/21 21:15 Admit Provider: Per Garcia
[2021-06-23 17:09] LABS: Add Manual Diff / Slide Review NO; Alanine Aminotransferase 22 IU/L (<50); Albumin Globulin Ratio 1.1 (1.0-2.8); Alkaline Phosphatase 66 U/L (38-126); Aspartate Aminotransferase 28 IU/L (17-59); BUN Creatinine Ratio 12.2 (6-22); Basophils Absolute Auto 0 /uL (0-100); Basophils Percent Auto 0.3 % (0-2); Bilirubin Total 0.6 mg/dL (0.2-1.3); Blood Urea Nitrogen 20 mg/dL (9-20); Calcium 8.8 mg/dL (8.4-10.2); Carbon Dioxide 23 mmol/L (22-32); Chloride 108 mmol/L (98-107); Creatine Kinase 75 U/L (55-170); Eosinophils Absolute Auto 400 /uL (0-450); Eosinophils Percent Auto 7.4 % (2-4); Estimated Glomerular Filt Rate 40.8 mL/min (>60); Globulin 3.6 g/dL (1.7-4.1); Glucose 107 mg/dL (80-110); HEMOLYSIS < 15 (0-50); Hematocrit 36.7 % (41-53); Hemoglobin 12.4 g/dL (13.5-17.5); Lymphocytes Absolute Auto 1700 /uL (1100-4500); Lymphocytes Percent Auto 32.4 % (25-40); Mean Corpuscular HGB Conc 33.7 % (30-36); Mean Corpuscular Hemoglobin 30.4 PG (26-34); Mean Corpuscular Volume 90.3 fL (80-100); Monocytes Absolute Auto 1000 /uL (0-900); Monocytes Percent Auto 18.4 % (3-14); Neutrophils Absolute Auto 2200 /uL (1500-7000); Neutrophils Percent Auto 41.5 % (50-75); Platelet Count 125 X10^3/uL (150-400); Potassium 3.9 mmol/L (3.4-5.1); Red Blood Cell Count 4.06 X10^6/uL (4.5-5.9); Red Cell Distribution Width 16.7 % (11.6-14.8); Sodium 138 mmol/L (137-145); Total Protein 7.6 g/dL (6.3-8.2); White Blood Cell Count 5.3 X10^3/uL (4.5-11.0)
--- NOTE | 2021-06-23 17:09 | PC.NURSE ---
Attempted to connect Dr Hernandez with Dr Hodges regarding stroke head CT. Dr Hernandez stated that we are past the 20 minute point and he should just read my report. Dr Hernandez did not speak to Dr Hodges regarding CT.
[2021-06-23 17:21] LABS: Troponin I < 0.012 ng/mL (0.01-0.034)
--- NOTE | 2021-06-23 17:26 | DI.CT.S_ITS ---
PROCEDURE: CT ANGIO HEAD AND NECK INDICATIONS: TIA/CVA. TECHNIQUE: After the administration of intravenous contrast, 1 mm thick sections acquired from the aortic arch through the [place]. Post-contrast 4.5 mm thick sections then re-acquired from the foramen magnum to the vertex. 3-dimensional fcbirzx-ucesgcvzr-cqotwppdod (MIP) and/or volume rendering reformats were acquired of the central intracranial vasculature and neck separately. COMPARISON: [facility], CT, CT STROKE, 06/23/2021, 16:45. FINDINGS: Image quality: Excellent. BRAIN: CSF spaces: Ventricles are normal in size and shape. Basal cisterns are patent. No extra-axial fluid collections. Brain: No midline shift. No intracranial bleeds or masses. [place]-white matter interface appears intact. No area of abnormal contrast enhancement is noted. Age related atrophy and mild periventricular and deep white matter chronic small vessel ischemic changes are seen unchanged from earlier study. Skull and face: Again noted is prior right parietal occipital craniectomy unchanged from prior study. Orbits appear normal. Sinuses: Sinuses and mastoids are clear. HEAD CT ANGIOGRAPHY: Anterior circulation: Intracranial internal carotid arteries are normal in size and flow. Diminutive appearance of right A1 segment of anterior cerebral artery is seen suggestive of congenital etiology versus high-grade stenosis involving right A1 segment. More distal portion of right anterior cerebral arteries show normal size and flow. Left anterior cerebral artery show normal size and flow. The flow within the middle cerebral arteries is normal and symmetric. The anterior communicating artery is seen. No aneurysms are seen. Posterior circulation: Visualized portions of the vertebral arteries demonstrate normal caliber, and join to form a normal appearing basilar artery. Flow within the posterior cerebral arteries is normal and symmetric. No aneurysms are seen. NECK CT ANGIOGRAPHY: Carotid system: The great vessels demonstrate a conventional anatomy as they arise from the aortic arch. The origins of the common carotid arteries appear patent. The common carotid arteries demonstrate normal caliber and courses. Mild atherosclerotic calcifications seen involving distal right common carotid artery and origin of right internal carotid artery with less than 50% stenosis. Moderate amount of atherosclerotic plaques are noted involving left carotid bulb and origin of left common carotid artery with high-grade greater than 90% stenosis involving proximal 1.2 cm segment of left internal carotid artery. More distal portion of left internal carotid artery show no hemodynamically significant stenosis. Posterior circulation: The origins of the vertebral arteries both appear widely patent. The more superior extracranial portions of both vertebral arteries also demonstrate normal courses and calibers. They join to form a normal appearing basilar artery. Soft tissues: Visualized neck soft tissues demonstrate no suspicious abnormalities. Bones: No suspicious bony lesions. Visualized cervical spine appears normally aligned. IMPRESSION: 1. No CT evidence of acute intracranial bleed, midline shift or mass effect. No area of abnormal intracranial enhancement. 2. Prior right posterior parietal occipital craniectomy with postsurgical changes. 3. Suggestion of high-grade stenosis involving A1 segment of right anterior cerebral artery versus congenitally small right A1 segment. No other hemodynamically significant stenosis or aneurysm is seen in visualized intracranial circulation. 4. 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 5. No hemodynamically significant stenosis is seen in right carotid arteries or bilateral vertebral arteries. Any quantitative measurements of stenosis were performed using NASCET criteria. Dictated by: Joe Zapata M.D. on 06/23/2021 at 18:03 Approved by: Joe Zapata M.D. on 06/23/2021 at 18:12
[2021-06-23 17:39] LABS: COVID19 -Nasal RAPID Negative (Negative)
[2021-06-23] MEDS: SODIUM CHLORIDE 0.9% 1,000 ML 250 ML IV (17:45)
[2021-06-23] MEDS: ASPIRIN 81 MG CHEW TAB 324 MG PO (18:19)
--- NOTE | 2021-06-23 21:26 | DI.MRI.S_ITS ---
PROCEDURE: MR HEAD/BRAIN WO CON INDICATIONS: TIA right hand TECHNIQUE: Non-contrast axial T1 spin echo, axial T2 fast spin echo, sagittal and axial FLAIR, coronal T2 fast spin echo, axial gradient echo, axial diffusion and ADC through the brain. COMPARISON: [facility], US, US CAROTID DOPPLER BI, 06/24/2021, 8:23. [facility], CT, CT STROKE, 06/23/2021, 16:45. [facility], CT, CT ANGIO HEAD AND NECK, 06/23/2021, 17:29. FINDINGS: Image quality: There is artifact associated with the metallic hardware. CSF spaces: Ventricles appear symmetric in size and shape. Basal cisterns are patent. No extra-axial fluid collections. Brain: Mild dural irregularity and regional hemorrhage can be seen involving the right frontal parietal region at the area of prior postoperative change. No intracranial mass effects. There is cerebral volume loss for age. There are periventricular and deep white matter chronic small vessel ischemic changes. Brainstem appears normal. Diffusion-weighted images show no acute ischemic insults. No chronic ischemic insults. Normal intravascular flow voids are present. Skull and face: Craniectomy change can be seen involving the right posterior region, with a metallic plate placed. Calvarial bone marrow is normal in signal. There is an apparent metallic foreign body seen involving the right cheek with susceptibility artifact, as on series 7, image 1. Orbits are normal. Note is made of bilateral lens replacements. Sinuses: Sinuses and mastoids are clear. IMPRESSION: No findings of acute or subacute infarction can be seen. Note is made of age-appropriate brain parenchymal volume loss and chronic small vessel ischemic changes. Right posterior postoperative change, with craniectomy. Incidental note is made of: Apparent metallic foreign body involving the right cheek Dictated by: Anthony Sibley M.D. on 06/24/2021 at 10:04 Approved by: Anthony Sibley M.D. on 06/24/2021 at 10:07
[2021-06-23 21:48] LABS: UR Morphine/Opiate cutoff 300 Negative (Negative); Ur Creatinine Normal (Normal); Ur Specific Gravity Normal (Normal); Urine Amphetamines Negative (Negative); Urine Barbiturates Negative (Negative); Urine Benzodiazepines Negative (Negative); Urine Cocaine Negative (Negative); Urine MDMA Negative (Negative); Urine Methadone Negative (Negative); Urine Methamphetamines Negative (Negative); Urine Oxycodone Negative (Negative); Urine Phencyclidine Negative (Negative); Urine Tetrahydrocannabinol Negative (Negative); Urine Tricyclic Antidepressant Negative (Negative); Urine pH Normal (Normal)
[2021-06-23] MEDS: valACYclovir 500 MG TABLET PO (23:20)
[2021-06-23] MEDS: TAMSULOSIN 0.4 MG CAPSULE PO (23:20)
[2021-06-24] MEDS: CALCIUM CARBONATE 500 MG TAB PO (03:42)
--- NOTE | 2021-06-24 05:24 | DI.ECHO.S_ITS ---
[facility] +---------+ : : [address] : : : : [id number] : : : : Phone: [phone]+ Echocardiogram Report + + :Name: LANDRY CLAYTON Study Date: 06/24/2021 Height: 72 in : :[facility] ReadingLocation: Weight: 250 lb : : Gender: Male BSA: 2.3 m2 : :: 1940 Age: 80 yrs BP: 144/50 mmHg: :Reason For Study: TIA : :Ordering Physician: ADAMA, : :LOIS Farris Performed By: Preston Wright : :Referring: LOIS GALAN : + + Interpretation Summary Mild concentric left ventricular hypertrophy with ejection fraction 60-65%. Borderline biatrial enlargement. Moderate aortic stenosis. The peak aortic velocity is 3.3 m/sec. (the previous exam was 2.8 m/sec.) Moderate aortic regurgitation. Moderate mitral annular calcification. Moderate mitral regurgitation. Mild tricuspid regurgitation. The right ventricular systolic pressure is estimated to be at least 32 mmHg based on an estimated right atrial pressure of 3 mm Hg. Comparison is made with the echocardiogram of 09/09/2020, aortic stenosis and mitral regurgitation have progressed. Procedure: A two-dimensional transthoracic echocardiogram with color flow and Doppler was performed. The study quality was technically adequate. Comparison is made with the echocardiogram of 09/09/2020. The patient was in normal sinus rhythm during the exam. Left Ventricle: The left ventricle is normal in size. There is mild concentric left ventricular hypertrophy. The ejection fraction is estimated to be 60-65%. There are no focal wall motion abnormalities. Right Ventricle: The right ventricle is normal in size and function. Atria: There is borderline biatrial enlargement. There is no Doppler evidence for an interatrial shunt. Mitral Valve: There is moderate mitral annular calcification. The mitral valve leaflets appear mildly thickened, but open well. There is moderate mitral regurgitation. The mitral regurgitant jet is posteriorly directed, which is consistent with anterior leaflet pathology. Aortic Valve: The aortic valve is trileaflet. There is mild to moderately reduced leaflet mobility. The aortic valve is mildly calcified. There is moderate aortic stenosis. The peak aortic velocity is 3.3 m/sec. The peak aortic velocity on the previous exam was 2.8 m/sec. The aortic valve mean gradient is 26 mmHg. There is moderate aortic regurgitation. Tricuspid Valve: The tricuspid valve is normal. There is mild tricuspid regurgitation. The right ventricular systolic pressure is estimated to be at least 32 mmHg based on an estimated right atrial pressure of 3 mm Hg. Pulmonic Valve: The pulmonic valve leaflets are thin and pliable; valve motion is normal. There is a trace or physiologic amount of pulmonic regurgitation. Great Vessels: The aortic root is normal size. The ascending aorta is at the upper limits of normal in size. The aortic arch is at the upper limits of normal in size. IVC not well visualized but probably normal. Pericardium/ Pleura There is no pericardial effusion. There is an anterior echo-free space consistent with a fat pad. There is no pleural effusion. MMode/2D Measurements & Calculations LVIDd: 4.7 cm LVOT diam: 2.0 cm LVIDs: 3.2 cm Ao root diam: 3.3 cm FS: 33.2 % asc Aorta Diam: 3.8 cm IVSd: 1.3 cm Ao Arch Diam (Prox Trans): 3.2 cm LVPWd: 1.0 cm LV patterson. diameter/BSA (cm/m^2): 2.0 LV sys. diameter/BSA (cm/m^2): 1.4 LA A2 area: 25.2 cm2 RA long axis: 5.4 cm LA A4 area: 33.5 cm2 RA area: 17.2 cm2 LA length (vol): 7.9 cm RA vol: 46.7 ml LA vol: 90.7 ml RA : 19.9 ml/m2 LA vol index: 38.7 ml/m2 TAPSE: 2.4 cm Doppler Measurements & Calculations Ao V2 max: 328.9 cm/sec LVOT Max Perfecto: 114.6 cm/sec Ao V2 mean: 245.6 cm/sec LV V1 max P.3 mmHg Ao max P.3 mmHg LV V1 VTI: 31.3 cm Ao mean P.8 mmHg XAVIER(I,D): 1.2 cm2 Ao V2 VTI: 78.5 cm XAVIER(V,D): 1.0 cm2 sev ratio: 0.40 XAVIER indexed to BSA (cm^2/m^2): 0.51 MV E max perfecto: 119.7 cm/sec TR max perfecto: 271.2 cm/sec MV A max perfecto: 100.7 cm/sec TR max P.4 mmHg MV E/A: 1.2 Med Peak E' Perfecto: 4.9 cm/sec E/E' med: 24.5 Lat Peak E' Perfecto: 4.0 cm/sec E/E' lat: 29.6 E/e' average: 27.0 MV dec time: 0.27 sec MVA(VTI): 1.9 cm2 MV V2 mean: 70.5 cm/sec SV(LVOT): 94.3 ml MV mean P.4 mmHg MV V2 VTI: 48.7 cm Electronically signed by: Twyla Parks on Reading Physician:06/24/2021 02:04 PM
[2021-06-24 07:10] VITALS: O2SAT 96
--- NOTE | 2021-06-24 07:30 | P.HP_ITS ---
History of Present Illness History of Present Illness Date Patient Seen: 06/24/21 Time Patient Seen: 07:30 Chief complaint: possible stroke Narrative: 80 year-old male, seen by me on several occasions with known multiple myeloma with extension to his skull requiring craniotomy etcetera who presented to [facility] Emergency Department on the 23 of June with right hand numbness that began about an hour prior to arrival. He denied ever developing any weakness. Patient had some spread perhaps in to his right side of his head and maybe even with his speech as well as the rest of his right arm. Did than began to resolve and within 45 minutes or so of presenting to the emergency department was completely asymptomatic and has remained asymptomatic up to the present time Does not really have a history of any numbness in either hand at nighttime. Had no tingling to go with this as it improved. Has known vascular disease including coronary artery disease and history of abdominal aortic aneurysm that is being followed. He is on anti-platelet therapy with clopidogrel as well as high-dose/high-intensity statin therapy. Also continues to receive treatment for his multiple myeloma Evaluation emergency department was essentially unremarkable with 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 The neurologist with the tele stroke program was consulted who deferred to vascular surgery. Vascular was consulted in [place] who actually was aware of this patient given his history with his abdominal aortic aneurysm. They recommended completing a stroke workup and then probably early and rapid referral to vascular surgery for further treatment assuming no other findings for his presenting symptoms were discovered during his stroke evaluation (MRI/echo). He was given aspirin upon admission to the emergency department and this will be continued during his evaluation Patient History Medical History AAA (abdominal aortic aneurysm) Acquired hypothyroidism Cancer of skull Coronary artery disease involving l[place]ton heart without angina pectoris Essential hypertension Hearing loss (~2009) History of kidney cancer (~2009) Mixed hyperlipidemia Multiple myeloma Personal history of stroke with current residual effects Renal cell carcinoma (~2009) Stroke (~2017) Surgical History Anesthesia S/p nephrectomy (~2009) S/P shoulder surgery S/P wrist surgery Family & Social History Family History Mother Diabetes mellitus Father Heart disease Brother Multiple sclerosis Social History: household members spouse Prior Living Arrangements House Safety & Behavioral: Feels Safe in Current Yes Environment Been Physically Hurt or No Threatened By a Person Suicidal Ideation Description None Suicide Plan Description No Plan Tobacco & Substance use: Tobacco type cigarettes Smoking Status Former smoker alcohol intake current alcohol intake frequency 0-2 drinks per day Substance Use Type does not use Meds Home Medications and Allergies Home Medications Medication Instructions Recorded Confirmed Type levothyroxine 125 mcg tablet 125 mcg PO DAILY 08/24/20 06/23/21 History tamsulosin 0.4 mg capsule 0.4 mg PO BID cap 08/24/20 06/23/21 History albuterol sulfate 90 mcg/actuation 2 puff INHALATION Q4-6H PRN #18 g 09/07/20 06/23/21 Rx aerosol inhaler clopidogrel 75 mg tablet 75 mg PO DAILY #90 tab 11/16/20 06/23/21 Rx losartan 50 mg tablet 50 mg PO DAILY 11/16/20 06/23/21 History atorvastatin 80 mg tablet 80 mg PO QPM #90 tab 11/22/20 06/23/21 Rx carvedilol 25 mg tablet 25 mg PO BID tab 06/03/21 06/23/21 History acyclovir 400 mg tablet 400 mg PO BID 06/23/21 06/23/21 History amlodipine 10 mg tablet 10 mg PO DAILY 06/23/21 06/23/21 History fluticasone fur. 200 mcg-umeclid 1 inh INHALATION DAILY 06/23/21 06/23/21 History 62.5 mcg-vilant 25 mcg inhalat.powder (Trelegy Ellipta) lenalidomide 10 mg capsule 10 mg PO DAILY 06/23/21 06/23/21 History (Revlimid) valacyclovir 500 mg tablet 500 mg PO BID 06/23/21 06/23/21 History Allergies Allergy/AdvReac Type Severity Reaction Status Date / Time metformin AdvReac Intermediate diarrhea Verified 06/03/21 15:40 Review of Systems Review of Systems ROS: Yes All systems reviewed with the patient and are negative except as otherwise documented Exam Vital Signs (past 8 hours): Oxygen Delivery Method Room Air Narrative Exam Narrative: Younger than stated age appearing male in no obvious distress lying in hospital bed HEENT-unremarkable, normocephalic atraumatic Neck-no lymphadenopathy no bruits Lungs-clear anteriorly and posteriorly no wheezes no crackles good breath sounds Heart-regular rate and rhythm, no murmur, rub, or gallop. normal S1-S2 Abdomen-positive bowel tones, soft, nontender, nondistended, no hepatosplen omegaly, no masses palpable Neuro-normal to screening exam, gait not tested, no focal defects identified Extremities-no cyanosis clubbing or edema Objective Imaging CTA Head/Neck: Radiologist's impression: [address] [address] [address] Scan Report Signed Patient: Nicanor Mccarthy MR#: [id number] : 1940 Acct:[id number] Age/Sex: 80 / M Date of Service: 06/23/21 Loc: ED Accession Number: [id number] ?? Procedure: CT angio head and neck Ordering Provider: Vince Hodges MD PROCEDURE:? CT ANGIO HEAD AND NECK ? INDICATIONS:? TIA/CVA. ? TECHNIQUE:? After the administration of intravenous contrast, 1 mm thick sections acquired from the aortic arch through the [place] of [place].? Post-contrast 4.5 mm thick sections then re-acquired from the foramen magnum to the vertex.? 3-dimensional tufajfo-ceueekkol-bpvxqcwuiv (MIP) and/or volume rendering reformats were acqu ired of the central intracranial vasculature and neck separately. ? COMPARISON:? [facility], CT, CT STROKE, 06/23/2021, 16:45. ? FINDINGS:? Image quality:? Excellent.? ? BRAIN:? CSF spaces:? Ventricles are normal in size and shape.? Basal cisterns are patent.? No extra-axial fluid collections.? ? Brain:? No midline shift.? No intracranial bleeds or masses.? Henning-white matter interface appears intact.? No area of abnormal contrast enhancement is noted.? Age related atrophy and mild periventricular and deep white matter chronic small vessel ischemic changes are seen unchanged from earlier study. ? Skull and face:? Again noted is prior right parietal occipital craniectomy unchanged from prior study.? Orbits appear normal.? ? Sinuses:? Sinuses and mastoids are clear.? ? HEAD CT ANGIOGRAPHY:? Anterior circulation:? Intracranial internal carotid arteries are normal in size and flow.? Diminutive appearance of right A1 segment of anterior cerebral artery is seen suggestive of congenital etiology versus high-grade stenosis involving right A1 segment.? More distal portion of right anterior cerebral arteries show normal size and flow.? Left anterior cerebral artery show normal size and flow.? The flow within the middle cerebral arteries is normal and symmetric.? The anterior communicating artery is seen.? No aneurysms are seen.? ? Posterior circulation:? Visualized portions of the vertebral arteries demonstrate normal caliber, and join to form a normal appearing basilar artery.? Flow within the posterior cerebral arteries is normal and symmetric.? No aneurysms are seen.? ? NECK CT ANGIOGRAPHY:? Carotid system:? The great vessels demonstrate a conventional anatomy as they arise from the aortic arch.? The origins of the common carotid arteries appear patent.? The common carotid arteries demonstrate normal caliber and courses.? Mild atherosclerotic calcifications seen involving distal right common carotid artery and origin of right internal carotid artery with less than 50% stenosis.? Moderate amount of atherosclerotic plaques are noted involving left carotid bulb and origin of left common carotid artery with high-grade greater than 90% stenosis involving proximal 1.2 cm segment of left internal carotid artery.? More distal portion of left internal carotid artery show no hemodynamically significant stenosis. ? Posterior circulation:? The origins of the vertebral arteries both appear widely patent.? The more superior extracranial portions of both vertebral arteries also demonstrate normal courses and calibers.? They join to form a normal appearing basilar artery.? ? Soft tissues:? Visualized neck soft tissues demonstrate no suspicious abnormalities.? ? Bones:? No suspicious bony lesions.? Visualized cervical spine appears normally aligned.? IMPRESSION:? 1. No CT evidence of acute intracranial bleed, midline shift or mass effect.? No area of abnormal intracranial enhancement. 2.? Prior right posterior parietal occipital craniectomy with postsurgical ch anges. 3. Suggestion of high-grade stenosis involving A1 segment of right anterior cerebral artery versus congenitally small right A1 segment.? No other hemodynamically significant stenosis or aneurysm is seen in visualized intracranial circulation. 4.? 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 5. No hemodynamically significant stenosis is seen in right carotid arteries or bilateral vertebral arteries.? ? Any quantitative measurements of stenosis were performed using NASCET criteria.? CT scan - head: Radiologist's impression: [address] [address] [address] Scan Report Signed Patient: Nicanor Mccarthy MR#: [id number] : 1940 Acct:[id number] Age/Sex: 80 / M Date of Service: 06/23/21 Loc: ED Accession Number: [id number] ?? Procedure: CT Stroke Ordering Provider: Vince Hodges MD PROCEDURE:? CT STROKE ? INDICATIONS:? CODE STROKE ? TECHNIQUE:? Noncontrast 4.5 mm thick angled axial sections acquired from the foramen magnum to the vertex, with coronal reformats.? For radiation dose reduction, the following was used:? automated exposure control, adjustment of mA and/or kV according to patient size.? ? COMPARISON:? [facility], CT, CT HEAD/BRAIN WO CON, 08/17/2020, 12:25.? [facility], MR, MR HEAD/BRAIN WO/W CON, 08/25/2020, 7:12. ? FINDINGS:? Image quality:? Excellent.? ? CSF spaces:? Basal cisterns are patent.? No extra-axial fluid collections.? The ventricles are symmetric in size and shape.? ? Brain:? No intracranial bleeds or masses.? There is cerebral volume loss for age, with resultant ventricular and sulcal prominence.? There are periventricular and deep white matter chronic small vessel ischemic changes.? There is intracranial internal carotid artery and vertebral artery atherosclerosis.? ? Skull and face:? Postsurgical changes compatible with right parietal-occipital craniectomy.? visualized facial bones appear intact, without suspicious lesions.? ? Sinuses:? Visualized sinuses and mastoids are clear.? ? IMPRESSION:? No acute intracranial disease process. ? Attempts to telephoned results to Dr. Hodges on June 23, 2021 at 4:58 p.m. and 5:06 p.m. were unsuccessful. ? This study fulfills neurological imaging criteria for inclusion or exclusion of acute stroke therapies based on available published neurological guidelines.? ? ? Dictated by: Rachelle Hernandez MD, PhD on 06/23/2021 at 16:58 ? ? Approved by: Rachelle Hernandez MD, PhD on 06/23/2021 at 17:07 ? Labs Result Diagrams: 06/23/21 16:43 06/23/21 16:43 Labs: Laboratory Results - last 24 hr 06/23/21 06/23/21 06/23/21 16:43 16:43 16:43 WBC 5.3 RBC 4.06 L Hgb 12.4 L Hct 36.7 L MCV 90.3 MCH 30.4 MCHC 33.7 RDW 16.7 H Plt Count 125 L Neut % (Auto) 41.5 L Lymph % (Auto) 32.4 [place] % (Auto) 18.4 H Eos % (Auto) 7.4 H Baso % (Auto) 0.3 Neut # (Auto) 2200 Lymph # (Auto) 1700 [place] # (Auto) 1000 H Eos # (Auto) 400 Baso # (Auto) 0 PT 14.2 H INR 1.3 APTT 32 Sodium 138 Potassium 3.9 Chloride 108 H Carbon Dioxide 23 BUN 20 Creatinine 1.64 H Estimated GFR 40.8 L BUN/Creatinine Ratio 12.2 Glucose 107 Calcium 8.8 Total Bilirubin 0.6 AST 28 ALT 22 Alkaline Phosphatase 66 Total Creatine Kinase 75 CK-MB (CK-2) TNP CK-MB (CK-2) Rel Index TNP Troponin I < 0.012 Total Protein 7.6 Albumin 4.0 Globulin 3.6 Albumin/Globulin Ratio 1.1 U Opiates 300ng/mL cut Ur Oxycodone Screen Urine Methadone Screen Ur Barbiturates Screen U Tricyclic Antidepress Ur Phencyclidine Scrn Ur Amphetamines Screen U Methamphetamines Scrn Ur MDMA Scrn (Ecstasy) U Benzodiazepines Scrn Urine Cocaine Screen U Marijuana (THC) Screen SARS-CoV-2 (PCR) 06/23/21 06/23/21 16:53 21:34 WBC RBC Hgb Hct MCV MCH MCHC RDW Plt Count Neut % (Auto) Lymph % (Auto) [place] % (Auto) Eos % (Auto) Baso % (Auto) Neut # (Auto) Lymph # (Auto) [place] # (Auto) Eos # (Auto) Baso # (Auto) PT INR APTT Sodium Potassium Chloride Carbon Dioxide BUN Creatinine Estimated GFR BUN/Creatinine Ratio Glucose Calcium Total Bilirubin AST ALT Alkaline Phosphatase Total Creatine Kinase CK-MB (CK-2) CK-MB (CK-2) Rel Index Troponin I Total Protein Albumin Globulin Albumin/Globulin Ratio U Opiates 300ng/mL cut Negative Ur Oxycodone Screen Negative Urine Methadone Screen Negative Ur Barbiturates Screen Negative U Tricyclic Antidepress Negative Ur Phencyclidine Scrn Negative Ur Amphetamines Screen Negative U Methamphetamines Scrn Negative Ur MDMA Scrn (Ecstasy) Negative U Benzodiazepines Scrn Negative Urine Cocaine Screen Negative U Marijuana (THC) Screen Negative SARS-CoV-2 (PCR) Negative Assessment & Plan Assessment & Plan narrative: 1. TIA-presumed TIA with resolution of symptoms in a distribution that would fit with his newly discovered left carotid obstruction. Patient will have MRI with stroke protocol performed for confirmation and assurance that there has been no active infarct or other etiology for his symptoms specially given his significant history with his skull-based lesion and need for resection etcetera. Assuming that is normal and his echo so fails to demonstrate a different etiology for his presenting symptoms, he will be referred to vascular surgery (Dr. Osuna) at [facility] who by report will be reaching out to the patient today to try and schedule an TIGIST appointment. I will also obtain a left only carotid ultrasound as recommended by vascular surgery as well. Aspirin will be added as an anti-platelet agent to reduce risk, again as recommended by tele Stroke Neurology. Given the patient does not have any active deficits I do not believe he is actually sustained an acute stroke. He has absolutely no symptoms with speech or swallowing at this time do not believe he needs any sort of swallowing evaluation nor does he need any sort of physical or occupational therapy evaluation. 2. Hypertension/hyperlipidemia-Patient will continue on his atorvastatin as well as his antihypertensives. He will continue on clopidogrel and aspirin will be added to his regimen until we can complete his evaluation with vascular surgery. Will monitor blood pressure etcetera carefully here in the hospital as well given these are long-term problems as well as related to his presenting TIA 3. Hypothyroidism-continue usual medications at current dose 4. Multiple myeloma-patient continues to receive treatment and is on Revlimid days. Recent evaluation failed to reveal evidence of recurrent disease. Will continue to give that to him here as appropriate. 5. Code status-patient should be a full code in the event of a sudden cardiac or respiratory arrest which is not all anticipated 6. VTE prophylaxis-patient would be a candidate for Lovenox 40 mg Q 24 hours given that his evaluation is failed reveal evidence of hemorrhage causing his neurologic symptoms Time Spent With Patient Critical Care time: I spent a total of [] minutes of critical care time on this patient's care today; this time is exclusive of procedural time. Quality VTE Deep Vein Thrombosis/Pulmonary Embolism Present on Admission: No
--- NOTE | 2021-06-24 08:03 | DI.US.S_ITS ---
PROCEDURE: US CAROTID DOPPLER BI INDICATIONS: TIA TECHNIQUE: Color and pulse Doppler interrogation was performed of both carotid systems, with image documentation and velocity measurements. COMPARISON: [facility], CT, CT STROKE, 06/23/2021, 16:45. [facility], CT, CT ANGIO HEAD AND NECK, 06/23/2021, 17:29. FINDINGS: Stenosis calculations are based on SRU (Society of Radiologists in Ultrasound) criteria. Right side: Brachial blood pressure: 104,151 mm Hg. Common carotid artery peak systolic velocity: 88 cm/sec. Internal carotid artery peak systolic velocity: 110 cm/sec. Internal carotid artery end diastolic velocity: 34 cm/sec. External carotid artery peak systolic velocity: 99 cm/sec. ICA/CCA peak systolic ratio: 1.3 Henning scale imaging description: Ijvi-mw-nkydlkbk atherosclerotic change can be seen. Percent internal carotid artery stenosis: Less than 50% by velocity criteria Vertebral artery: Flow direction is antegrade. Left side: Brachial blood pressure: 1445 mm Hg. Common carotid artery peak systolic velocity: 94 cm/sec. Internal carotid artery peak systolic velocity: 530 cm/sec. Internal carotid artery end diastolic velocity: 224 cm/sec. External carotid artery peak systolic velocity: 103 cm/sec. ICA/CCA peak systolic ratio: 5.6 Henning scale imaging description: Prominent atherosclerotic change is seen. Percent internal carotid artery stenosis: High-grade stenosis, rated by velocity criteria to be greater than 70% Vertebral artery: Flow direction is antegrade. IMPRESSION: There is confirmed a subtotal stenosis involving the LEFT proximal internal carotid artery. Vascular surgery consultation is recommended. Dictated by: Anthony Sibley M.D. on 06/24/2021 at 8:10 Approved by: Anthony Sibley M.D. on 06/24/2021 at 8:12
[2021-06-24 08:43] VITALS: BP 141/57; PULSE 56; RESP 17; TEMP 36.6; O2SAT 97
[2021-06-24] MEDS: LOSARTAN 50 MG TABLET PO (09:00)
[2021-06-24] MEDS: LEVOTHYROXINE 125 MCG TABLET PO (09:00)
[2021-06-24] MEDS: SODIUM CHLORIDE 0.9% FLUSH 10 ML IV (09:00)
[2021-06-24] MEDS: ASPIRIN EC 325 MG TABLET PO (09:00)
[2021-06-24] MEDS: carvediloL 12.5 MG TABLET 25 MG PO (09:00)
[2021-06-24] MEDS: CLOPIDOGREL 75 MG TABLET PO (09:00)
[2021-06-24] MEDS: ENOXAPARIN 40 MG/0.4 ML SYRINGE SUBCUT (09:00)
[2021-06-24] MEDS: TAMSULOSIN 0.4 MG CAPSULE PO (09:04)
[2021-06-24] MEDS: valACYclovir 500 MG TABLET PO (09:04)
[2021-06-24 09:21] VITALS: O2SAT 97
--- NOTE | 2021-06-24 13:12 | CM.DANOTE ---
DCP: Case received, EMR reviewed and met with patient. Introduced self and role. Was able to obtain information regarding patient's baseline activity status prior to hospitalization. DCP assessment completed with information currently available. Patient is a 80 year old male who admitted yesterday evening to the care of the hospitalist team. PCP: Dr. Garcia. Payer: confirmed: Medicare/[employer]. Patient came to the hospital via private vehicle secondary to having some tingling in his hands. Patient was originally diagnosed with TIA, and should be getting an MRI. Patient has history of multiple myeloma, with craniotomy. Met with patient in his room. He is independent at his baseline. He goes to [place] for his treatments, and resides with his , Paty here in [place]. He will be following up with a vascular provider. P: DCP to continue to follow for any needs. Patient should be able to go home when he is deemed medically stable. Ritu Toro RN/Behavioral Health Assistant Discharge Planning/Care Management CM Discharge Assessment Start: 06/24/21 12:59 Freq: Status: Active Protocol: Document 06/24/21 13:00 (Rec: 06/24/21 13:05 [id number]) Discharge Planning Assessment Assigned Buggy Ladle Tender Ritu Toro RN/Behavioral Health Assistant Advance Directives? Yes Advance Directives on File No History Provided By Patient,Medical Record Prior Living Arrangements House Household Members spouse Type of transporation used prior to Drives own vehicle admit Independent with ADL's Yes Is patient alert and oriented? Yes Caregiver for Another No Document 06/24/21 13:11 (Rec: 06/24/21 13:12 [id number]) Discharge Planning Assessment Assigned Buggy Ladle Tender Ritu Toro RN/Behavioral Health Assistant Advance Directives? Yes Advance Directives on File No History Provided By Patient,Medical Record Prior Living Arrangements House Household Members spouse Type of transporation used prior to Drives own vehicle admit Independent with ADL's Yes Is patient alert and oriented? Yes Caregiver for Another No Barriers to Discharge No Discharge Plan Home Transportation Arrangement Spouse Referrals Initiated None needed Whiteboard Updated in Patient Room with Yes name and ext. # of Buggy Ladle Tender Review Status In Process Next Review Type Continued Stay Review
--- NOTE | 2021-06-24 14:29 | PM.DS.1 ---
History of Present Illness History of Present Illness Date Patient Seen: 06/24/21 Time Patient Seen: 14:29 Chief complaint: possible stroke Narrative: 80 year-old male, seen by me on several occasions with known multiple myeloma with extension to his skull requiring craniotomy etcetera who presented to [facility] Emergency Department on the 23 of June with right hand numbness that began about an hour prior to arrival. He denied ever developing any weakness. Patient had some spread perhaps in to his right side of his head and maybe even with his speech as well as the rest of his right arm. Did than began to resolve and within 45 minutes or so of presenting to the emergency department was completely asymptomatic and has remained asymptomatic up to the present time Does not really have a history of any numbness in either hand at nighttime. Had no tingling to go with this as it improved. Has known vascular disease including coronary artery disease and history of abdominal aortic aneurysm that is being followed. He is on anti-platelet therapy with clopidogrel as well as high-dose/high-intensity statin therapy. Also continues to receive treatment for his multiple myeloma Evaluation emergency department was essentially unremarkable with 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 The neurologist with the tele stroke program was consulted who deferred to vascular surgery. Vascular was consulted in [place] who actually was aware of this patient given his history with his abdominal aortic aneurysm. They recommended completing a stroke workup and then probably early and rapid referral to vascular surgery for further treatment assuming no other findings for his presenting symptoms were discovered during his stroke evaluation (MRI/echo). He was given aspirin upon admission to the emergency department and this will be continued during his evaluation Discharge Providers Provider Date of admission: 06/23/21 21:15 Discharge Date: 06/24/21 Primary care physician: Per Garcia MD Discharge provider: Per Garcia MD Summary Hospital Course Discharge Diagnosis: 1. Transient ischemic attack, resolved (right arm symptoms) 2. 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 Coronary artery disease, stable this admission 4. Hypertension, stable this admission 5. Hyperlipidemia on high-intensity statin therapy 6. Multiple myeloma 7. Hypercalcemia malignancy, resolved 8. Hypothyroidism 9. Abdominal aortic aneurysm Hospital Course: Patient was admitted to the hospital as above. He had no further neurologic symptoms Carotid ultrasound confirmed the finding seen on CT angiography without additional abnormalities noted. MRI of the brain was performed and did not show any evidence of an acute or subacute infarction or any other unexpected abnormality. Echocardiogram was repeated and other than mild mild progression of aortic stenosis and mitral regurgitation no change from September 2020 and no etiology for TIA/stroke seen on this study. Patient remained in sinus rhythm throughout the course of his hospitalization Exam Vital Signs (past 8 hours): - 06/24/21 07:10 06/24/21 08:43 06/24/21 09:21 Temperature 97.9 F Pulse Rate 56 L Respiratory Rate 17 Blood Pressure 141/57 H Pulse Oximetry 96 97 97 Oxygen Delivery Method Nasal Cannula Oxygen Flow Rate 0 Objective Labs Result Diagrams: 06/23/21 16:43 06/23/21 16:43 Labs: Laboratory Results - last 24 hr 06/23/21 06/23/21 06/23/21 16:43 16:43 16:43 WBC 5.3 RBC 4.06 L Hgb 12.4 L Hct 36.7 L MCV 90.3 MCH 30.4 MCHC 33.7 RDW 16.7 H Plt Count 125 L Neut % (Auto) 41.5 L Lymph % (Auto) 32.4 [place] % (Auto) 18.4 H Eos % (Auto) 7.4 H Baso % (Auto) 0.3 Neut # (Auto) 2200 Lymph # (Auto) 1700 [place] # (Auto) 1000 H Eos # (Auto) 400 Baso # (Auto) 0 PT 14.2 H INR 1.3 APTT 32 Sodium 138 Potassium 3.9 Chloride 108 H Carbon Dioxide 23 BUN 20 Creatinine 1.64 H Estimated GFR 40.8 L BUN/Creatinine Ratio 12.2 Glucose 107 Calcium 8.8 Total Bilirubin 0.6 AST 28 ALT 22 Alkaline Phosphatase 66 Total Creatine Kinase 75 CK-MB (CK-2) TNP CK-MB (CK-2) Rel Index TNP Troponin I < 0.012 Total Protein 7.6 Albumin 4.0 Globulin 3.6 Albumin/Globulin Ratio 1.1 U Opiates 300ng/mL cut Ur Oxycodone Screen Urine Methadone Screen Ur Barbiturates Screen U Tricyclic Antidepress Ur Phencyclidine Scrn Ur Amphetamines Screen U Methamphetamines Scrn Ur MDMA Scrn (Ecstasy) U Benzodiazepines Scrn Urine Cocaine Screen U Marijuana (THC) Screen SARS-CoV-2 (PCR) 06/23/21 06/23/21 16:53 21:34 WBC RBC Hgb Hct MCV MCH MCHC RDW Plt Count Neut % (Auto) Lymph % (Auto) [place] % (Auto) Eos % (Auto) Baso % (Auto) Neut # (Auto) Lymph # (Auto) [place] # (Auto) Eos # (Auto) Baso # (Auto) PT INR APTT Sodium Potassium Chloride Carbon Dioxide BUN Creatinine Estimated GFR BUN/Creatinine Ratio Glucose Calcium Total Bilirubin AST ALT Alkaline Phosphatase Total Creatine Kinase CK-MB (CK-2) CK-MB (CK-2) Rel Index Troponin I Total Protein Albumin Globulin Albumin/Globulin Ratio U Opiates 300ng/mL cut Negative Ur Oxycodone Screen Negative Urine Methadone Screen Negative Ur Barbiturates Screen Negative U Tricyclic Antidepress Negative Ur Phencyclidine Scrn Negative Ur Amphetamines Screen Negative U Methamphetamines Scrn Negative Ur MDMA Scrn (Ecstasy) Negative U Benzodiazepines Scrn Negative Urine Cocaine Screen Negative U Marijuana (THC) Screen Negative SARS-CoV-2 (PCR) Negative PFSH Medical History AAA (abdominal aortic aneurysm) Acquired hypothyroidism Cancer of skull Coronary artery disease involving [place] heart without angina pectoris Essential hypertension Hearing loss (~2009) History of kidney cancer (~2009) Mixed hyperlipidemia Multiple myeloma Personal history of stroke with current residual effects Renal cell carcinoma (~2009) Stroke (~2016) Surgical History Anesthesia S/p nephrectomy (~2009) S/P shoulder surgery S/P wrist surgery Family History Mother Diabetes mellitus Father Heart disease Brother Multiple sclerosis Social History household members: spouse Smoking Status: Former smoker alcohol intake: current Discharge Assessment & Plan Assessment and Plan Plan of Treatment: Patient be discharged all of his usual medications. He is was on clopidogrel upon admission and will have aspirin 325 mg added to his regimen. Dr. Ayo Osuna vascular surgery [facility] was contacted around the time of his admission and plans were made for him to be seen in the vascular surgery Clinic [facility] assuming his workup at [facility] was unremarkable which was of course. Discharge Plan Discharge Plan Patient Disposition: Home Discharge orders & Medications Prescriptions: New aspirin 325 mg Tablet,Delayed Release (Dr/Ec) 325 mg PO DAILY Qty: 150 0RF Continued atorvastatin 80 mg tablet 80 mg PO QPM Qty: 90 1RF tamsulosin 0.4 mg capsule 0.4 mg PO BID 0RF levothyroxine 125 mcg tablet 125 mcg PO DAILY 0RF carvedilol 25 mg tablet 25 mg PO BID 0RF losartan 50 mg tablet 50 mg PO DAILY 0RF clopidogrel 75 mg tablet 75 mg PO DAILY Qty: 90 2RF acyclovir 400 mg tablet 400 mg PO BID 0RF Trelegy Ellipta 200-62.5-25 mcg blister with device 1 inh INHALATION DAILY 0RF Label Comments: INHALE 1 PUFF BY MOUTH DAILY. RINSE MOUTH WITH WATER AFTER USE Revlimid 10 mg capsule 10 mg PO DAILY 0RF amlodipine 10 mg Tablet 10 mg PO DAILY 0RF albuterol sulfate 90 mcg/actuation HFA aerosol inhaler 2 puff inhalation Q4-6H PRN (Reason: shortness of breath or wheezing) Qty: 18 0RF Discontinued valacyclovir 500 mg tablet 500 mg PO BID 0RF Label Comments: TAKE 1 TABLET BY MOUTH TWICE DAILY Follow up/Referrals: Per Garcia MD [Primary Care Provider] - Discharge Health Status Multidrug resistant organism: No MDRO Diet/Activity/Treatments Diet: Diet as Tolerated and Low-sodium Discharge Data Primary Care Provider: Per Garcia Attending Provider: Per Garcia Quality VTE Deep Vein Thrombosis/Pulmonary Embolism Present on Admission: No
--- NOTE | 2021-06-24 14:51 | PC.NURSE ---
Addendum entered by Afshan Nieto R.N. 06/24/21 15:37: Patient taken via [facility] to vehicle driven by friend. Patient had all belongings. Original Note: Went over dc instructions and medications with patient, questions answered.
== END 2021-06-24 15:39 | disposition home or self-care (01) ==
LOC: ED 18:46 → AC 21:16
PROVIDERS: Admitting Provider Internal Medicine; Emergency Provider Emergency Medicine; PCP Internal Medicine; Referring Provider Emergency Medicine; Visit Provider Internal Medicine
DX: R20.0 Anesthesia of skin (principal); I65.22 Occlusion and stenosis of left carotid artery; R29.701 NIHSS score 1; I25.2 Old myocardial infarction; I25.10 Atherosclerotic heart disease of native coronary artery without angina pectoris; C90.00 Multiple myeloma not having achieved remission; I10 Essential (primary) hypertension; E78.5 Hyperlipidemia, unspecified; E03.9 Hypothyroidism, unspecified; I71.4 Abdominal aortic aneurysm, without rupture; Z79.01 Long term (current) use of anticoagulants; Z20.822 Contact with and (suspected) exposure to COVID-19
CPT/HCPCS: 36415; 70450; 70496; 70498; 70551; 71045; 80053; 80305; 82550; 84484; 85025; 85610; 85730; 87635; 93005; 93010; 93306; 93880; 94760; 96360; 96361; 96372; 99235; 99285; 99291; 99292; C9803; G0378; J1650

== ENCOUNTER → 2021-08-04 10:52 | Outpatient (CLI) | payer MEDICARE, SELFPAY ==
[2021-06-23 21:59] VITALS: BMI 34.6
[2021-08-04 12:55] LABS: Albumin 3.4 g/dL (3.5-5.0); Blood Urea Nitrogen 18 mg/dL (9-20); Calcium 8.6 mg/dL (8.4-10.2); Carbon Dioxide 25 mmol/L (22-32); Chloride 105 mmol/L (98-107); Estimated Glomerular Filt Rate 49.8 mL/min (>60); Glucose 166 mg/dL (80-110); HEMOLYSIS < 15 (0-50); Phosphorous 2.7 mg/dL (2.3-3.7); Potassium 3.6 mmol/L (3.4-5.1); Sodium 138 mmol/L (137-145)
== END ==
PROVIDERS: PCP Internal Medicine; Referring Provider Internal Medicine Hematology & Oncology; Visit Provider Internal Medicine Hematology & Oncology
DX: N17.9 Acute kidney failure, unspecified (principal)
CPT/HCPCS: 36415; 80069

== ENCOUNTER → 2022-02-11 12:09 | Outpatient (CLI) | payer MEDICARE, SELFPAY ==
[2021-06-23 21:59] VITALS: BMI 34.6
--- NOTE | 2022-02-11 12:10 | DI.RAD.S_ITS ---
PROCEDURE: XR WRIST LT MIN 3V INDICATIONS: Left wrist swelling TECHNIQUE: 4 views of the wrist were acquired. COMPARISON: None. FINDINGS: Bones: No acute fractures or dislocations. On the lateral view, there is a remote fracture fragment seen distal and dorsal to the distal radius that measures 5 mm. No suspicious bony lesions. Relatively prominent degenerative changes are seen throughout, with narrowing of the radiocarpal interface. There is widening of the scapholunate interface. Scaphoid view: No navicular fractures are seen. Soft tissues: Soft tissue calcification can be seen of the triangular fibrocartilage. Generalized soft tissue swelling is seen. IMPRESSION: There is generalized soft tissue swelling. No lea, acute abnormality bony can be seen. Remote posttraumatic and relatively prominent degenerative changes are seen. Depending upon clinical concern, please consider a follow-up dedicated wrist CT or MRI for further evaluation. Dictated by: Anthony Sibley M.D. on 02/11/2022 at 12:15 Approved by: Anthony Sibley M.D. on 02/11/2022 at 12:18
== END ==
PROVIDERS: PCP Internal Medicine; Referring Provider Nurse Practitioner Family; Visit Provider Nurse Practitioner Family
DX: M25.432 Effusion, left wrist (principal)
CPT/HCPCS: 73110

== ENCOUNTER 2022-03-22 11:50 | Emergency (ER) | payer MEDICARE, SELFPAY ==
[2021-06-23 21:59] VITALS: BMI 34.6
[2022-03-22 12:37] VITALS: BP 119/59; PULSE 61; RESP 15; TEMP 35.8; O2SAT 98; BMI 32.5
--- NOTE | 2022-03-22 12:40 | DI.US.S_ITS ---
PROCEDURE: US PERIPH VENOUS LOW EXTREM RT INDICATIONS: PAIN, SWELLING TECHNIQUE: Real-time imaging, as well as color and pulse Doppler interrogation, were performed of the lower extremity deep veins from the inguinal ligament to the popliteal fossa. COMPARISON: None. FINDINGS: The common femoral, femoral and popliteal veins are normally compressible, and free of intraluminal thrombus. Color and pulse Doppler demonstrate normal phasic intraluminal flow. There is normal augmentation response to distal compression maneuver. IMPRESSION: Negative for deep venous thrombosis. Dictated by: Anthony Sibley M.D. on 03/22/2022 at 13:14 Approved by: Anthony Sibley M.D. on 03/22/2022 at 13:15
--- NOTE | 2022-03-22 15:03 | DI.RAD.S_ITS ---
PROCEDURE: XR KNEE RT 3V INDICATIONS: rt knee pain worse at night, hx myeloma TECHNIQUE: 3 views of the knee were acquired. COMPARISON: [facility], CR, XR KNEE RT 1TO2V, 06/01/2021, 12:07. FINDINGS: Bones: No fractures or dislocations. Mild tricompartmental degenerative changes present. Soft tissues: No joint effusion. No suspicious soft tissue calcifications. Chondrocalcinosis is present. IMPRESSION: 1. No acute osseous abnormality. 2. Mild degenerative changes of the knee. 3. If symptoms persist, follow-up radiographs and/or CT or MRI may be helpful for further evaluation. Dictated by: Jame Fernandes M.D. on 03/22/2022 at 16:03 Approved by: Jame Fernandes M.D. on 03/22/2022 at 16:06
--- NOTE | 2022-03-22 15:47 | ED.EXTPRO ---
HPI - Extremity Problem <Merlene LUZMARIA Menchaca - Last Filed: 03/22/22 16:12> General Chief complaint: Extremity Problem,Nontraumatic Stated complaint: Right leg acting up Time Seen by Provider: 03/22/22 14:45 Source: patient Mode of arrival: Ambulatory History of Present Illness HPI Narrative: This is a 81-year-old male with history of multiple myeloma, not currently anticoagulated, 2 months following a carotid endarterectomy, he does not take baby aspirin daily any longer either, he had a TIA in June of this year, a left carotid obstruction and subsequent endarterectomy, CAD, also has history of hypertension, hyperlipidemia, hypothyroidism, hypercalcemia related to his malignancy, and newest: An abdominal aortic aneurysm. He states that he is stable on his current medications, his oncologist is from the [facility], PCP is Dr. Garcia, he was most recently taken off of Plavix for rate previous MIs with stents prior to his endarterectomy. He is concerned about right medial knee pain which he state kept him up last night, denies numbness or tingling, denies low back pain or relation between the 2. States that there was swelling and mild erythema this morning without warmth. He does not have a history of diabetes, does not have lower extremity edema, does not have a wound, does not have significant tenderness to this area and states that it is slightly behind his knee feels more swollen than usual. On chart review it appears that patient has a history of CKD and a previous nephrectomy, his baseline creatinine is 1.2-1.3. Related Data Home Medications Medication Instructions Recorded Confirmed levothyroxine 125 mcg tablet 125 mcg PO DAILY 08/24/20 11/03/21 tamsulosin 0.4 mg capsule 0.4 mg PO BID 08/24/20 11/03/21 losartan 50 mg tablet 50 mg PO DAILY 11/16/20 11/03/21 carvedilol 25 mg tablet 25 mg PO BID 06/03/21 11/03/21 acyclovir 400 mg tablet 400 mg PO BID 06/23/21 11/03/21 amlodipine 10 mg tablet 10 mg PO DAILY 06/23/21 11/03/21 fluticasone fur. 200 mcg-umeclid 1 inh inhalation DAILY 06/23/21 11/03/21 62.5 mcg-vilant 25 mcg inhalat.powder (Trelegy Ellipta) lenalidomide 10 mg capsule 10 mg PO DAILY 06/23/21 11/03/21 (Revlimid) Previous Rx's Medication Instructions Recorded albuterol sulfate 90 mcg/actuation 2 puff inhalation Q4-6H PRN 09/07/20 aerosol inhaler shortness of breath or wheezing #18 grams atorvastatin 80 mg tablet 80 mg PO QPM #90 tabs 11/22/20 aspirin 325 mg tablet,delayed 325 mg PO DAILY #150 tabs 06/24/21 release clopidogrel 75 mg tablet 75 mg PO DAILY #90 tabs 08/19/21 oxycodone 5 mg tablet 5 mg PO Q6H PRN pain (scale score 10/18/21 7-10) #10 tabs diclofenac sodium 1 % topical gel 4 g topical QID PRN rt knee pain 03/22/22 #100 grams meloxicam 7.5 mg tablet 7.5 mg PO DAILY PRN knee pain #30 03/22/22 tabs oxycodone 5 mg tablet 5 mg PO Q6HR PRN pain #20 tabs 03/22/22 Allergies Allergy/AdvReac Type Severity Reaction Status Date / Time metformin AdvReac Intermediate diarrhea Verified 03/22/22 12:37 Review of Systems <LUZMARIA Villasenor - Last Filed: 03/22/22 16:12> Review of Systems Narrative: Review of systems is negative for acute abnormalities unless otherwise noted in HPI Patient History <LUZMARIA Villasenor - Last Filed: 03/22/22 16:12> Medical History AAA (abdominal aortic aneurysm) Acquired hypothyroidism Cancer of skull Coronary artery disease involving [place] heart without angina pectoris Essential hypertension Hearing loss (~2009) History of kidney cancer (~2009) Mixed hyperlipidemia Multiple myeloma Personal history of stroke with current residual effects Renal cell carcinoma (~2009) Stroke (~2016) Surgical History Anesthesia S/p nephrectomy (~2009) S/P shoulder surgery S/P wrist surgery Family History Mother Diabetes mellitus Father Heart disease Brother Multiple sclerosis Social History household members: spouse Smoking Status: Former smoker alcohol intake: current Smoking Status: Former smoker alcohol intake frequency: holidays/special occasions only Substance Use Type: does not use Exam <LUZMARIA Villasenor - Last Filed: 03/22/22 16:12> Narrative Exam Narrative: Reviewed vitals signs and nursing notes. General: cooperative, comfortable, in no acute distress, well groomed HEENT: symmetrical facial expressions, moist mucous membranes Cardiovascular: regular rate and rhythm, no peripheral edema, warm extremities Respiratory: normal effort, able to speak in complete sentences, without wheezing, stridor, or abnormal breath sounds. No retractions or tachypnea. GI: abdomen soft, nontender to palpation, nondistended, without masses, rebound tenderness or exquisite tenderness with exam. MSK: moves all extremities, neurovascularly intact, no weakness, normal tone, right knee without erythema, mild edema without palpable suprapatellar effusion no tenderness over patellar tendon, no tenderness over posterior knee, without palpable Kerns cyst, no ecchymosis or varicose veins superficially. Skin: brisk capillary refill, without pallor or erythema Neuro: normal speech and cognition, A&O x3, ambulatory, clear speech Psych: mental status is grossly normal, congruent mood, normal affect, pleasant and cooperative Initial Vital Signs Initial Vital Signs: Vital Signs Temperature 96.4 F L 03/22/22 12:37 Pulse Rate 61 03/22/22 12:37 Respiratory Rate 15 03/22/22 12:37 Blood Pressure 119/59 L 03/22/22 12:37 Pulse Oximetry 98 03/22/22 12:37 Oxygen Delivery Method 03/22/22 12:37 <Stephen Bruno DO - Last Filed: 03/26/22 07:15> Initial Vital Signs Initial Vital Signs: Vital Signs Temperature 96.4 F L 03/22/22 12:37 Pulse Rate 61 03/22/22 12:37 Respiratory Rate 15 03/22/22 12:37 Blood Pressure 119/59 L 03/22/22 12:37 Pulse Oximetry 98 03/22/22 12:37 Oxygen Delivery Method 03/22/22 12:37 Course <LUZMARIA Villasenor - Last Filed: 03/22/22 16:12> Orders Ordered: ED Orders 03/22/22 12:40 US periph venous low extrem rt Stat 03/22/22 15:03 XR knee RT 3V Stat Vital Signs Vital signs: Vital Signs - 8 hr 03/22/22 12:37 Temperature 96.4 F L Pulse Rate 61 Respiratory Rate 15 Blood Pressure 119/59 L Pulse Oximetry 98 Oxygen Delivery Method Room Air <Stephen Bruno DO - Last Filed: 03/26/22 07:15> Orders Ordered: ED Orders 03/22/22 12:40 US periph venous low extrem rt Stat 03/22/22 15:03 XR knee RT 3V Stat Vital Signs Vital signs: Vital Signs - 8 hr 03/22/22 12:37 Temperature 96.4 F L Pulse Rate 61 Respiratory Rate 15 Blood Pressure 119/59 L Pulse Oximetry 98 Oxygen Delivery Method Room Air MDM - Extremity (Nontraumatic) <Merlene Patel, [facility] - Last Filed: 03/22/22 16:12> Imaging Data US - DVT: Radiologist's Impression: PROCEDURE:? US PERIPH VENOUS LOW EXTREM RT ? INDICATIONS:? PAIN, SWELLING ? TECHNIQUE:? Real-time imaging, as well as color and pulse Doppler interrogation, were performed of the lower extremity deep veins from the inguinal ligament to the popliteal fossa.? ? COMPARISON:? None. ? FINDINGS:? The common femoral, femoral and popliteal veins are normally compressible, and free of intraluminal thrombus.? Color and pulse Doppler demonstrate normal phasic intraluminal flow.? There is normal augmentation response to distal compression maneuver. ? ? IMPRESSION:? ? Negative for deep venous thrombosis. ? ? Dictated by: Anthony Sibley M.D. on 03/22/2022 at 13:14 ? ? Approved by: Anthony Sibley M.D. on 03/22/2022 at 13:15 ? Extremity x-ray #1: Radiologist's Impression: PROCEDURE:? XR KNEE RT 3V ? INDICATIONS:? rt knee pain worse at night, hx myeloma ? TECHNIQUE:? 3 views of the knee were acquired.? ? COMPARISON:? [facility], , XR KNEE RT 1TO2V, 06/01/2021, 12:07. ? FINDINGS:? ? Bones:? No fractures or dislocations.? Mild tricompartmental degenerative changes present. ? Soft tissues:? No joint effusion.? No suspicious soft tissue calcifications.? Chondrocalcinosis is present. ? ? IMPRESSION:? 1. No acute osseous abnormality. 2. Mild degenerative changes of the knee. 3. If symptoms persist, follow-up radiographs and/or CT or MRI may be helpful for further evaluation.? ? ? Dictated by: Jame Fernandes M.D. on 03/22/2022 at 16:03 ? ? Approved by: Jame Fernandes M.D. on 03/22/2022 at 16:06 ? MDM Narrative Medical decision making narrative: This is a 81-year-old male with multiple medical problems who is pleasant and presents to the emergency department today with concern about a DVT to his right lower extremity. His ultrasound DVT to the right lower extremity is negative, his exam is without erythema, exquisite tenderness, superficial varicose veins or thrombophlebitis. Of deep right knee pain which kept him up last night and states it was hard for him to sleep, right knee x-ray was ordered to compare with the one he had on 06/01/21 which at the time showed a right knee medial and patellofemoral compartment osteoarthritis, a patellar bone spur with a small nonspecific knee joint infection. Patient is not anticoagulated, his PCP is Dr. Garcia, I encouraged him to follow-up with him about this right knee as he may be a good candidate for steroid injection, he has a history of nephrectomy, CAD, multiple myeloma and an abdominal aortic aneurysm, NSAIDs are not recommended. I did recommend icing his right knee frequently throughout the day, resting, using topical diclofenac gel and if his pain is severe, he has a prescription of oxycodone which he can use until he can follow-up with specialist and/or an occasional dose of Mobic with food and water. I discussed with him and his that anti-inflammatories are not a good choice but he does not currently take medications that should interact with this and his CKD appears stable with a creatinine most recently of 1.3. Right knee x-ray is without acute osseous abnormality, shows mild degenerative changes of the knee. No joint effusion. I encouraged patient to follow-up with Dr. Garcia for possible referral to Dr. Ortiz for steroid injections, or follow-up with orthopedics [facility]. Patient and his state understanding to discharge instructions, encouraged the patient to ice frequently, rest, stay hydrated and avoid NSAIDs orally if able to use the oxycodone instead, they were prescribed diclofenac gel to use for topical relief. Patient is appropriate and amenable to discharge home. Vital signs are stable on repeat examination is unremarkable. Patient has been informed of results. Patient has been given strict return to ER precautions for any new or worsening symptoms. Patient understands to follow up closely with outpatient providers as instructed. Patient understands plan and agrees to discharge home. All questions and concerns answered at this time. Discharge Plan Departure Patient Disposition: Home Clinical Impression: Encounter for assessment for deep vein thrombosis (DVT), Acute pain of right knee Degenerative arthritis of right knee Qualifiers: Osteoarthritis type: unspecified Qualified Code(s): M17.11 - Unilateral primary osteoarthritis, right knee Instructions: Saumya Lopez, DI for Knee Pain Activity Restrictions/Additional Instructions: *You have been diagnosed with right knee pain which is not due to a blood clot, this is great news. You have a history of osteoarthritis and knee effusions in the past, since you have kidney disease, I do not want you taking anti-inflammatories much but I have prescribed for you Mobic which should be safe if you drink plenty of water and eat some food and do not take it often. Please use oxycodone as needed for pain, ice your knee frequently at least 3 times a day while it is painful like this, I wanted to rule out any new concerning findings in your right knee with x-ray and I will let you know if there are. Please follow-up with Dr. Garcia regarding this pain if it comes back. You may benefit from steroid injection if you can not take anti-inflammatories. Thank you for your patience today, sorry for the long wait. I hope that you feel better soon. Try to stay off of your knee as much as you can in this period of time to let the inflammation go down. *What to do: *Please continue to take your regular medications as directed. [ x] New medication prescriptions sent to your pharmacy: [[facility] ] [ ] New medication written as a paper prescription [ ] No new medications given *Please follow up with your primary care provider in 2-3 days, call for an appointment. Let them know you were seen in the Emergency Department and that we asked that you be seen for follow-up. We will electronically transmit a record of today's note if your PCP is in our system *If you do not have a primary care provider please contact [phone] to establish care with one of the [facility] primary care providers. *Return to Emergency Department if you should have any new, worsening, or concerning symptoms, such as [fever greater than 101F, chills, worsening pain, persistent vomiting or other bothersome symptoms]. Prescriptions: New oxycodone 5 mg tablet 5 mg PO Q6HR PRN (Reason: pain) Qty: 20 0RF diclofenac sodium 1 % gel 4 g topical QID PRN (Reason: rt knee pain) Qty: 100 0RF meloxicam 7.5 mg tablet 7.5 mg PO DAILY PRN (Reason: knee pain) Qty: 30 0RF Rx Instructions: Please take food and water No Action atorvastatin 80 mg tablet 80 mg PO QPM Qty: 90 1RF clopidogrel 75 mg tablet 75 mg PO DAILY Qty: 90 2RF tamsulosin 0.4 mg capsule 0.4 mg PO BID levothyroxine 125 mcg tablet 125 mcg PO DAILY carvedilol 25 mg tablet 25 mg PO BID oxycodone 5 mg tablet 5 mg PO Q6H PRN (Reason: pain (scale score 7-10)) Qty: 10 0RF losartan 50 mg tablet 50 mg PO DAILY acyclovir 400 mg tablet 400 mg PO BID Trelegy Ellipta 200-62.5-25 mcg blister with device 1 inh INHALATION DAILY Label Comments: INHALE 1 PUFF BY MOUTH DAILY. RINSE MOUTH WITH WATER AFTER USE Revlimid 10 mg capsule 10 mg PO DAILY amlodipine 10 mg Tablet 10 mg PO DAILY aspirin 325 mg Tablet,Delayed Release (Dr/Ec) 325 mg PO DAILY Qty: 150 0RF albuterol sulfate 90 mcg/actuation HFA aerosol inhaler 2 puff inhalation Q4-6H PRN (Reason: shortness of breath or wheezing) Qty: 18 0RF Referrals: Per Garcia MD [Primary Care Provider] - Visit Report Forms: Patient Portal/API <Stephen Bruno DO - Last Filed: 03/26/22 07:15> Cosign ED Attending Cosignature Attestation: I was immediately available in the department for consultation. This documentation has been reviewed and I agree with assessment and plan. Supervised by Stephen Bruno, DO
== END 2022-03-22 15:23 | disposition home or self-care (01) ==
PROVIDERS: Emergency Provider Nurse Practitioner Critical Care Medicine; PCP Internal Medicine
DX: M17.11 Unilateral primary osteoarthritis, right knee (principal); M25.561 Pain in right knee
CPT/HCPCS: 73562; 93971; 99281; 99283

== ENCOUNTER → 2023-06-12 10:17 | Outpatient (CLI) | payer MEDICARE, SELFPAY ==
[2021-06-23 21:59] VITALS: BMI 34.6
[2023-06-12 11:42] LABS: Free T4, Direct Thyroxine 1.13 ng/dL (0.78-2.19)
[2023-06-12 11:56] LABS: Thyroid Stimulating Hormone 21.2 uIU/mL (0.47-4.68)
[2023-06-12 13:16] LABS: Free T3, Triiodothyronine Free 3.47 pg/mL (2.77-5.27)
== END ==
PROVIDERS: PCP Internal Medicine; Referring Provider Internal Medicine; Visit Provider Internal Medicine
DX: E03.9 Hypothyroidism, unspecified (principal)
CPT/HCPCS: 36415; 84439; 84443; 84481

== ENCOUNTER → 2023-09-28 09:45 | Outpatient (CLI) | payer MEDICARE, SELFPAY ==
[2021-06-23 21:59] VITALS: BMI 34.6
[2023-09-28 10:11] LABS: Add Manual Diff / Slide Review NO; Basophils Absolute Auto 100 /uL (0-100); Basophils Percent Auto 1.3 % (0-2); Eosinophils Absolute Auto 100 /uL (0-450); Eosinophils Percent Auto 2.4 % (2-4); Hematocrit 40.6 % (41-53); Hemoglobin 13.7 g/dL (13.5-17.5); Lymphocytes Absolute Auto 1600 /uL (1100-4500); Lymphocytes Percent Auto 35.1 % (25-40); Mean Corpuscular HGB Conc 33.7 % (30-36); Mean Corpuscular Hemoglobin 30.9 PG (26-34); Mean Corpuscular Volume 91.8 fL (80-100); Monocytes Absolute Auto 200 /uL (0-900); Monocytes Percent Auto 4.9 % (3-14); Neutrophils Absolute Auto 2600 /uL (1500-7000); Neutrophils Percent Auto 56.3 % (50-75); Platelet Count 109 X10^3/uL (150-400); Red Blood Cell Count 4.42 X10^6/uL (4.5-5.9); Red Cell Distribution Width 15.6 % (11.6-14.8); White Blood Cell Count 4.7 X10^3/uL (4.5-11.0)
== END ==
PROVIDERS: PCP Internal Medicine; Referring Provider Physician Assistant; Visit Provider Physician Assistant
DX: C90.01 Multiple myeloma in remission (principal)
CPT/HCPCS: 36415; 85025

== ENCOUNTER 2023-10-02 14:40 | Emergency (ER) | payer MEDICARE, SELFPAY ==
[2021-06-23 21:59] VITALS: BMI 34.6
[2023-10-02 14:47] VITALS: BP 144/66; PULSE 63; RESP 16; TEMP 36.4; O2SAT 98; BMI 31.4
--- NOTE | 2023-10-02 15:00 | DI.CT.S_ITS ---
PROCEDURE: CT ANGIO HEAD AND NECK INDICATIONS: Headache, dizziness, confusion TECHNIQUE: After the administration of intravenous contrast, 1 mm thick sections acquired from the aortic arch through the Leiter of [place]. 3-dimensional rzugxaf-gabrgpzko-jagajcqjzq (MIP) and/or volume rendering reformats were acquired of the central intracranial vasculature and neck separately. For radiation dose reduction, the following was used: automated exposure control, adjustment of mA and/or kV according to patient size. COMPARISON: , CT, CT ANGIO HEAD AND NECK, 06/23/2021, 17:29. FINDINGS: Image quality: Diagnostic. BRAIN: CSF spaces: Ventricles are normal in size and shape. Basal cisterns are patent. No extra-axial fluid collections. Brain: No significant abnormality of the brain can be seen. Skull and face: Calvarium and facial bones appear intact, without suspicious lesions. Orbits appear normal. Sinuses: Sinuses and mastoids are clear. HEAD CT ANGIOGRAPHY: Anterior circulation: Intracranial internal carotid arteries are normal in size and flow. Delayed bifurcation of the anterior cerebral arteries. The flow within the middle cerebral arteries is normal and symmetric. The anterior communicating artery is seen. No aneurysms are seen. Posterior circulation: Visualized portions of the vertebral arteries demonstrate normal caliber, and join to form a normal appearing basilar artery. Flow within the posterior cerebral arteries is normal and symmetric. No aneurysms are seen. NECK CT ANGIOGRAPHY: Carotid system: The great vessels demonstrate a conventional anatomy as they arise from the aortic arch. The origins of the common carotid arteries appear patent. The common carotid arteries demonstrate normal caliber and courses. The bifurcation regions are both widely patent. The internal carotid arteries demonstrate normal calibers and courses. Posterior circulation: The origins of the vertebral arteries both appear widely patent. The more superior extracranial portions of both vertebral arteries also demonstrate normal courses and calibers. They join to form a normal appearing basilar artery. Soft tissues: Visualized neck soft tissues demonstrate no suspicious abnormalities. Bones: No suspicious bony lesions. Visualized cervical spine appears normally aligned. IMPRESSION: No significant intracranial arterial abnormality is seen. No significant abnormality is seen within the arteries of the neck. Any quantitative measurements of stenosis were performed using NASCET criteria. Dictated by: Nael Nolan M.D. on 10/02/2023 at 16:36 Approved by: Nael Nolan M.D. on 10/02/2023 at 16:38
--- NOTE | 2023-10-02 15:00 | DI.CT.S_ITS ---
PROCEDURE: CT HEAD/BRAIN WO CON INDICATIONS: Headache, dizziness, confusion TECHNIQUE: Noncontrast 4.5 mm thick angled axial sections acquired from the foramen magnum to the vertex, with coronal and sagittal reformats. For radiation dose reduction, the following was used: automated exposure control, adjustment of mA and/or kV according to patient size. COMPARISON: [facility], CT, CT HEAD/BRAIN WO CON, 08/17/2020, 12:25. FINDINGS: Image quality: Diagnostic. CSF spaces: Basal cisterns are patent. No extra-axial fluid collections. The ventricles are symmetric in size and shape. Brain: No intracranial bleeds or masses. There is cerebral volume loss for age, with resultant ventricular and sulcal prominence. There are periventricular and deep white matter chronic small vessel ischemic changes. There is intracranial internal carotid artery atherosclerosis. Skull and face: Calvarium and visualized facial bones appear intact, without suspicious lesions. Right posterior craniotomy. Sinuses: Visualized sinuses and mastoids are clear. IMPRESSION: No acute intracranial pathology. Dictated by: Nael Nolan M.D. on 10/02/2023 at 16:35 Approved by: Nael Nolan M.D. on 10/02/2023 at 16:36
[2023-10-02 15:29] LABS: Add Manual Diff / Slide Review NO; Basophils Absolute Auto 100 /uL (0-100); Basophils Percent Auto 1.7 % (0-2); Eosinophils Absolute Auto 100 /uL (0-450); Eosinophils Percent Auto 0.8 % (2-4); Hematocrit 41.1 % (41-53); Hemoglobin 14.3 g/dL (13.5-17.5); Lymphocytes Absolute Auto 1900 /uL (1100-4500); Lymphocytes Percent Auto 29.1 % (25-40); Mean Corpuscular HGB Conc 34.9 % (30-36); Mean Corpuscular Hemoglobin 31.7 PG (26-34); Mean Corpuscular Volume 90.9 fL (80-100); Monocytes Absolute Auto 200 /uL (0-900); Monocytes Percent Auto 2.4 % (3-14); Neutrophils Absolute Auto 4300 /uL (1500-7000); Platelet Count 118 X10^3/uL (150-400); Red Blood Cell Count 4.52 X10^6/uL (4.5-5.9); White Blood Cell Count 6.6 X10^3/uL (4.5-11.0)
--- NOTE | 2023-10-02 15:30 | PC.NURSE ---
Pt came to ED today with due to ongoing worsening confusion, weakness, fatigue and balance issues. Pt's states that pt has been having intermittent confusion and difficulty finding words and that pt has been becoming increasingly fatigued over the course of the last 3 weeks. Pt has hx of multiple myeloma and both and pt have concerns regarding the new lump developing on the back of pt's head near previous incision. Pt states that he has been eating less and that his appetite has decreased. Pt currently a&ox4.
[2023-10-02 15:44] LABS: Alanine Aminotransferase 46 IU/L (<50); Albumin 3.9 g/dL (3.5-5.0); Albumin Globulin Ratio 1.2 (1.0-2.8); Alkaline Phosphatase 112 U/L (38-126); Aspartate Aminotransferase 45 IU/L (17-59); BUN Creatinine Ratio 17.8 (6-22); Bilirubin Total 0.5 mg/dL (0.2-1.3); Blood Urea Nitrogen 27 mg/dL (9-20); Calcium 9.2 mg/dL (8.4-10.2); Carbon Dioxide 23 mmol/L (22-32); Chloride 108 mmol/L (98-107); Estimated Glomerular Filt Rate 46 mL/min (>60); Globulin 3.3 g/dL (1.7-4.1); Glucose 131 mg/dL (80-110); HEMOLYSIS < 15 (0-50); Lipase 116 U/L (23-300); Potassium 3.9 mmol/L (3.4-5.1); Sodium 138 mmol/L (137-145); Total Protein 7.2 g/dL (6.3-8.2)
--- NOTE | 2023-10-02 16:45 | ED.NEUROSD ---
HPI - Neuro Symptoms/Deficit General Chief Complaint: Neuro Symptoms/Deficit Stated Complaint: thinks is having a stroke Time Seen by Provider: 10/02/23 14:59 Source: patient Mode of arrival: Ambulatory History of Present Illness HPI Narrative: 82-year-old male who comes in the emergency department with his for evaluation of potentially having a stroke. He states that periodically over the past week he has had episodes where he states that he has been confused and potentially has some word-finding issues. He states that he was currently asymptomatic. When the events happened they can last anywhere from minutes to a couple hours. He denies chest pain, shortness of breath, lightheadedness. No abdominal pain or nausea or vomiting. He does not have any extremity issues. He does occasionally have a headache. He was unsure as to whether or not the headache in the other symptoms occur together. Has never had a stroke. Does have history of multiple myeloma. Also has a history of high blood pressure. Not on anticoagulation. On Anticoagulants: Yes Related Data Home Medications Medication Instructions Recorded Confirmed tamsulosin 0.4 mg capsule 0.4 mg PO BID 08/24/20 06/12/23 carvedilol 25 mg tablet 25 mg PO BID 06/03/21 06/12/23 amlodipine 10 mg tablet 10 mg PO DAILY 06/23/21 06/12/23 gabapentin 100 mg capsule 100 - 300 mg PO BEDTIME 06/12/23 06/12/23 lenalidomide 5 mg capsule 5 mg PO DAILY 06/12/23 06/12/23 (Revlimid) levothyroxine 137 mcg tablet 137 mcg PO DAILY 06/12/23 06/12/23 losartan 100 mg tablet 100 mg PO DAILY 06/12/23 06/12/23 mecobalamin (vitamin B12) 2,500 2,500 mcg PO DAILY 06/12/23 06/12/23 mcg chewable tablet solifenacin 5 mg tablet 5 mg PO DAILY 06/12/23 06/12/23 Previous Rx's Medication Instructions Recorded atorvastatin 80 mg tablet 80 mg PO QPM #90 tabs 11/22/20 aspirin 325 mg tablet,delayed 325 mg PO DAILY #150 tabs 06/24/21 release sildenafil 100 mg tablet 50 - 100 mg (0.5 - 1 x 100 mg) PO 06/12/23 DAILY PRN sexual activity #5 tabs Allergies Allergy/AdvReac Type Severity Reaction Status Date / Time metformin AdvReac Intermediate diarrhea Verified 10/02/23 14:52 Review of Systems Review of Systems ROS Unobtainable: All systems reviewed & are unremarkable except as noted in HPI and below Hematologic/Lymphatic On Anticoagulants: Yes Patient History Medical History Plasmacytoma of bone Brain TIA Hypercalcemia Coronary artery disease involving [place] heart without angina pectoris Multiple myeloma Hearing loss (~2009) Stroke (~2017) History of kidney cancer (~2009) Cancer of skull Mixed hyperlipidemia Essential hypertension Acquired hypothyroidism AAA (abdominal aortic aneurysm) Personal history of stroke with current residual effects Renal cell carcinoma (~2009) Surgical History Anesthesia S/P wrist surgery S/P shoulder surgery S/p nephrectomy (~2009) Family History Mother Diabetes mellitus Father Heart disease Brother Multiple sclerosis Social History household members: spouse Smoking Status: Former smoker alcohol intake: current Smoking Status: Former smoker alcohol intake frequency: holidays/special occasions only Substance Use Type: does not use Exam Initial Vital Signs Initial Vital Signs: Vital Signs Temperature 97.5 F L 10/02/23 14:47 Pulse Rate 63 10/02/23 14:47 Respiratory Rate 16 10/02/23 14:47 Blood Pressure 144/66 H 10/02/23 14:47 Pulse Oximetry 98 10/02/23 14:47 Oxygen Delivery Method Room Air 10/02/23 14:47 Const General: cooperative HENCA Head: normal to inspection and normocephalic Resp Effort & Inspection: normal respiratory effort Auscultation: clear to auscultation bilaterally Cardio Rate: regular rate Rhythm: regular rhythm GI Inspection: normal to inspection and non-distended Skin General: no rashes or lesions noted Neuro General: patient alert, patient awake, patient oriented x3 and moves all extremities Cognition: normal cognition Speech: speech normal Gait: normal gait Sensory Exam: no sensory deficits noted Extrem General: normal to inspection Course Orders Ordered: ED Orders 10/02/23 15:00 CT angio head and neck Stat CT head/brain wo con Stat 10/02/23 15:21 Complete Blood Count AUTO DIFF Stat Comprehensive Metabolic Panel Stat Lipase Stat 10/02/23 16:12 EKG-12 Lead Stat Vital Signs Vital signs: Vital Signs - 8 hr 10/02/23 14:47 10/02/23 16:50 10/02/23 17:00 Temperature 97.5 F L Pulse Rate 63 51 L 59 L Respiratory Rate 16 20 Blood Pressure 144/66 H Pulse Oximetry 98 96 96 Oxygen Delivery Method Room Air 10/02/23 17:01 10/02/23 17:01 Temperature Pulse Rate 56 L Respiratory Rate 18 Blood Pressure 164/76 H Pulse Oximetry 96 Oxygen Delivery Method MDM - Neuro Symptoms/Deficit Lab Data Attestation: I reviewed the patient's lab results. 10/02/23 15:21 10/02/23 15:21 Labs: Lab Results 10/02/23 Range/Units 15:21 WBC 6.6 (4.5-11.0) X10^3/uL RBC 4.52 (4.5-5.9) X10^6/uL Hgb 14.3 (13.5-17.5) g/dL Hct 41.1 (41-53) % MCV 90.9 (80-100) fL MCH 31.7 (26-34) PG MCHC 34.9 (30-36) % RDW 16.0 H (11.6-14.8) % Plt Count 118 L (150-400) X10^3/uL Neut % (Auto) 66.0 (50-75) % Lymph % (Auto) 29.1 (25-40) % [place] % (Auto) 2.4 L (3-14) % Eos % (Auto) 0.8 L (2-4) % Baso % (Auto) 1.7 (0-2) % Neut # (Auto) 4300 (0780-1360) /uL Lymph # (Auto) 1900 (4473-0374) /uL [place] # (Auto) 200 (0-900) /uL Eos # (Auto) 100 (0-450) /uL Baso # (Auto) 100 (0-100) /uL Sodium 138 (137-145) mmol/L Potassium 3.9 (3.4-5.1) mmol/L Chloride 108 H (98-107) mmol/L Carbon Dioxide 23 (22-32) mmol/L BUN 27 H (9-20) mg/dL Creatinine 1.52 H (0.66-1.25) mg/dL Estimated GFR 46 L (>60) mL/min BUN/Creatinine Ratio 17.8 (6-22) Glucose 131 H (80-110) mg/dL Calcium 9.2 (8.4-10.2) mg/dL Total Bilirubin 0.5 (0.2-1.3) mg/dL AST 45 (17-59) IU/L ALT 46 (<50) IU/L Alkaline Phosphatase 112 (38-126) U/L Total Protein 7.2 (6.3-8.2) g/dL Albumin 3.9 (3.5-5.0) g/dL Globulin 3.3 (1.7-4.1) g/dL Albumin/Globulin Ratio 1.2 (1.0-2.8) Lipase 116 (23-300) U/L Imaging Data CTA - brain/neck: Radiologist's Impression: PROCEDURE: CT ANGIO HEAD AND NECK INDICATIONS: Headache, dizziness, confusion TECHNIQUE: After the administration of intravenous contrast, 1 mm thick sections acquired from the aortic arch through the [place]. 3-dimensional cnjxmwg-uwfutcopq-lmsvxjrtpn (MIP) and/or volume rendering reformats were acquired of the central intracranial vasculature and neck separately. For radiation dose reduction, the following was used: automated exposure control, adjustment of mA and/or kV according to patient size. COMPARISON: [facility], CT, CT ANGIO HEAD AND NECK, 06/23/2021, 17:29. FINDINGS: Image quality: Diagnostic. BRAIN: CSF spaces: Ventricles are normal in size and shape. Basal cisterns are patent. No extra-axial fluid collections. Brain: No significant abnormality of the brain can be seen. Skull and face: Calvarium and facial bones appear intact, without suspicious lesions. Orbits appear normal. Sinuses: Sinuses and mastoids are clear. HEAD CT ANGIOGRAPHY: Anterior circulation: Intracranial internal carotid arteries are normal in size and flow. Delayed bifurcation of the anterior cerebral arteries. The flow within the middle cerebral arteries is normal and symmetric. The anterior communicating artery is seen. No aneurysms are seen. Posterior circulation: Visualized portions of the vertebral arteries demonstrate normal caliber, and join to form a normal appearing basilar artery. Flow within the posterior cerebral arteries is normal and symmetric. No aneurysms are seen. NECK CT ANGIOGRAPHY: Carotid system: The great vessels demonstrate a conventional anatomy as they arise from the aortic arch. The origins of the common carotid arteries appear patent. The common carotid arteries demonstrate normal caliber and courses. The bifurcation regions are both widely patent. The internal carotid arteries demonstrate normal calibers and courses. Posterior circulation: The origins of the vertebral arteries both appear widely patent. The more superior extracranial portions of both vertebral arteries also demonstrate normal courses and calibers. They join to form a normal appearing basilar artery. Soft tissues: Visualized neck soft tissues demonstrate no suspicious abnormalities. Bones: No suspicious bony lesions. Visualized cervical spine appears normally aligned. IMPRESSION: No significant intracranial arterial abnormality is seen. No significant abnormality is seen within the arteries of the neck. CT scan - head: Radiologist's Impression: PROCEDURE: CT HEAD/BRAIN WO CON INDICATIONS: Headache, dizziness, confusion TECHNIQUE: Noncontrast 4.5 mm thick angled axial sections acquired from the foramen magnum to the vertex, with coronal and sagittal reformats. For radiation dose reduction, the following was used: automated exposure control, adjustment of mA and/or kV according to patient size. COMPARISON: [facility], CT, CT HEAD/BRAIN WO CON, 08/17/2020, 12:25. FINDINGS: Image quality: Diagnostic. CSF spaces: Basal cisterns are patent. No extra-axial fluid collections. The ventricles are symmetric in size and shape. Brain: No intracranial bleeds or masses. There is cerebral volume loss for age, with resultant ventricular and sulcal prominence. There are periventricular and deep white matter chronic small vessel ischemic changes. There is intracranial internal carotid artery atherosclerosis. Skull and face: Calvarium and visualized facial bones appear intact, without suspicious lesions. Right posterior craniotomy. Sinuses: Visualized sinuses and mastoids are clear. IMPRESSION: No acute intracranial pathology. ECG Data Attestation: I personally reviewed and interpreted this ECG as follows: Interpretation: Sinus bradycardia Ventricular rate of 54 Left axis deviation LVH Normal QRS No ST T wave changes MDM Narrative Medical decision making narrative: Patient is currently asymptomatic. Head CT and CTA of the head and neck are unremarkable. No lower extremity swelling. Patient's symptoms today are more consistent with a TIA rather than an acute CVA. I did discuss the case with Dr. Garcia who is the patient's primary doctor. Plan will be to discharge patient home and Dr. Garcia states he will arrange for outpatient continued workup to include an MRI. I did discuss this with the patient and his at bedside. They were given return precautions and follow-up instructions. They expressed understanding and agreement. Discharge Plan Departure Patient Disposition: Home Clinical Impression: Transient cerebral ischemia Instructions: DI for Transient Ischemic Attack Activity Restrictions/Additional Instructions: Recommend that you continue to take all of your medications as directed. You should be receiving a phone call from your primary care doctor's office tomorrow for a follow-up. Return to the emergency department for new or worsening symptoms. Prescriptions: No Action atorvastatin 80 mg tablet 80 mg PO QPM Qty: 90 1RF tamsulosin 0.4 mg capsule 0.4 mg PO BID carvedilol 25 mg tablet 25 mg PO BID lenalidomide [Revlimid] 5 mg capsule 5 mg PO DAILY gabapentin 100 mg capsule 100 - 300 mg PO BEDTIME levothyroxine 137 mcg tablet 137 mcg PO DAILY losartan 100 mg tablet 100 mg PO DAILY solifenacin 5 mg tablet 5 mg PO DAILY mecobalamin (vitamin B12) 2,500 mcg tablet,chewable 2,500 mcg PO DAILY sildenafil 100 mg tablet 50 - 100 mg PO DAILY PRN (Reason: sexual activity) Qty: 5 0RF Rx Instructions: administer 30 minutes to 4 hours before activity amlodipine 10 mg Tablet 10 mg PO DAILY aspirin 325 mg Tablet,Delayed Release (Dr/Ec) 325 mg PO DAILY Qty: 150 0RF Referrals: Per Garcia MD [Primary Care Provider] - Stand Alone Forms: Patient Portal/API
[2023-10-02 16:50] VITALS: PULSE 51; RESP 20; O2SAT 96
[2023-10-02 17:00] VITALS: PULSE 59; O2SAT 96
[2023-10-02 17:01] VITALS: BP 164/76; PULSE 56; RESP 18; O2SAT 96
== END 2023-10-02 17:21 | disposition home or self-care (01) ==
PROVIDERS: Emergency Provider Emergency Medicine; PCP Internal Medicine
DX: G45.9 Transient cerebral ischemic attack, unspecified (principal); R00.1 Bradycardia, unspecified
CPT/HCPCS: 70450; 70496; 70498; 80053; 83690; 85025; 93005; 99283; 99284; Q9967

== ENCOUNTER → 2023-10-03 13:35 | Outpatient (CLI) | payer MEDICARE, SELFPAY ==
[2023-10-02 17:11] VITALS: BMI 34.6
--- NOTE | 2023-10-03 13:36 | DI.MRI.S_ITS ---
PROCEDURE: MR HEAD/BRAIN WO/W CON INDICATIONS: TIA/Plasmacytoma TECHNIQUE: Noncontrast axial T1 spin echo, axial T2 fast spin echo, sagittal and axial FLAIR, coronal T2 fast spin echo, axial gradient echo, axial diffusion and ADC through the brain. After the administration of contrast, axial and coronal and sagittal T1 spin echo with fat saturation through the brain. COMPARISON: [facility], CT, CT HEAD/BRAIN WO CON, 10/02/2023, 15:5 mass resection with 7. [facility], MR, MR HEAD/BRAIN WO/W CON, 08/25/2020, 7:12. FINDINGS: Image quality: Excellent. CSF spaces: Basal cisterns are patent. No extra-axial fluid collections. Ventricles are normal in size and shape. Brain: No midline shift. No intracranial bleeds or masses. No abnormal intracranial enhancement. There is cerebral volume loss for age. There is periventricular white matter chronic small vessel ischemic change. The brainstem appears normal. Diffusion-weighted images demonstrate no acute infarct. No chronic ischemic insults. Normal intravascular flow voids are present. Skull and face: Postsurgical changes from right posterior craniectomy and cranioplasty. Calvarial marrow is normal in signal. Orbits appear normal. Sinuses: Sinuses and mastoids appear clear. IMPRESSION: Postsurgical changes from right posterior calvarial tumor resection. No evidence of recurrent disease. No cause for patients symptoms are identified. No acute intracranial abnormalities. Dictated by: Bogdan Heart M.D. on 10/03/2023 at 17:17 Approved by: Bogdan Heart M.D. on 10/03/2023 at 17:22
== END ==
LOC: MRI 13:36
PROVIDERS: PCP Internal Medicine; Referring Provider Internal Medicine; Visit Provider Internal Medicine
DX: C90.30 Solitary plasmacytoma not having achieved remission (principal); G45.9 Transient cerebral ischemic attack, unspecified
CPT/HCPCS: 70553; A9579

== ENCOUNTER 2023-10-09 12:00 | Observation (INO) | payer MEDICARE, SELFPAY ==
[2023-10-02 17:11] VITALS: BMI 34.6
[2023-10-09] VITALS (50 sets, daily range): BP systolic 130–230; BP diastolic 65–102; PULSE 50–75; RESP 17–30; TEMP 36.6; O2SAT 94–98; BMI 31.1
--- NOTE | 2023-10-09 12:02 | DI.RAD.S_ITS ---
PROCEDURE: XR CHEST 1V INDICATIONS: chest pain TECHNIQUE: One view of the chest was acquired. COMPARISON: [facility], CR, XR CHEST 1V, 09/09/2020, 17:57. [facility], CR, XR CHEST 1V, 06/23/2021, 16:35. FINDINGS: Surgical changes and devices: None. Lungs and pleura: Left midlung opacity. No pleural effusions or pneumothorax. Mediastinum: Mediastinal contours appear normal. Heart is enlarged. Bones and chest wall: No suspicious bony lesions. Overlying soft tissues appear unremarkable. IMPRESSION: Left midlung opacity most concerning for atelectasis. Recommend standard two view of the chest for definitive characterization when clinically feasible. Dictated by: Rachelle Hernandez MD, PhD on 10/09/2023 at 13:00 Approved by: Rachelle Hernandez MD, PhD on 10/09/2023 at 13:02
--- NOTE | 2023-10-09 12:12 | ED.SYNCOPE ---
HPI - Syncope General Chief Complaint: Syncope Stated Complaint: syncope Time Seen by Provider: 10/09/23 12:12 History of Present Illness HPI narrative: 82-year-old male had syncopal episode witnessed by who is not here to give additional history. Patient was evaluated last week here for TIA symptoms, had been having recent weeks of intermittent falls and generalized weakness, was discharged from his TIA visit, still having generalized weakness. This morning had episode of unresponsiveness, EMS noted blood pressure systolic 60, IV fluids given, soon after systolic blood pressure 140, felt better in route. Denies any nausea vomiting or diarrhea. No black or red stools. No fevers chills. Denies shortness of breath. He denies any focal weakness to his face arm or leg. No shaking or seizure activity, no incontinence of urine or stool. He has history of multiple myeloma, and was advised to stop oral treatment in case it might be associated with clotting, he has been off his multiple myeloma medications recent weeks. Related Data Home Medications Medication Instructions Recorded Confirmed tamsulosin 0.4 mg capsule 0.4 mg PO BID 08/24/20 10/05/23 carvedilol 25 mg tablet 25 mg PO BID 06/03/21 10/05/23 amlodipine 10 mg tablet 10 mg PO DAILY 06/23/21 10/05/23 gabapentin 100 mg capsule 100 - 300 mg PO BEDTIME 06/12/23 10/05/23 lenalidomide 5 mg capsule 5 mg PO DAILY 06/12/23 10/05/23 (Revlimid) levothyroxine 137 mcg tablet 137 mcg PO DAILY 06/12/23 10/05/23 losartan 100 mg tablet 100 mg PO DAILY 06/12/23 10/05/23 mecobalamin (vitamin B12) 2,500 2,500 mcg PO DAILY 06/12/23 10/05/23 mcg chewable tablet solifenacin 5 mg tablet 5 mg PO DAILY 06/12/23 10/05/23 Previous Rx's Medication Instructions Recorded atorvastatin 80 mg tablet 80 mg PO QPM #90 tabs 11/22/20 aspirin 325 mg tablet,delayed 325 mg PO DAILY #150 tabs 06/24/21 release sildenafil 100 mg tablet 50 - 100 mg (0.5 - 1 x 100 mg) PO 06/12/23 DAILY PRN sexual activity #5 tabs Allergies Allergy/AdvReac Type Severity Reaction Status Date / Time metformin AdvReac Intermediate diarrhea Verified 10/05/23 16:25 Patient History Medical History Plasmacytoma of bone Brain TIA Hypercalcemia Coronary artery disease involving [place] heart without angina pectoris Multiple myeloma Hearing loss (~2009) Stroke (~2017) History of kidney cancer (~2009) Cancer of skull Mixed hyperlipidemia Essential hypertension Acquired hypothyroidism AAA (abdominal aortic aneurysm) Personal history of stroke with current residual effects Renal cell carcinoma (~2009) Surgical History Anesthesia S/P wrist surgery S/P shoulder surgery S/p nephrectomy (~2009) Family History Mother Diabetes mellitus Father Heart disease Brother Multiple sclerosis Social History household members: spouse Smoking Status: Former smoker alcohol intake: current Smoking Status: Former smoker alcohol intake frequency: holidays/special occasions only Substance Use Type: does not use Exam Narrative Exam Narrative: GENERAL: Well-developed patient, in mild distress. HEAD: Atraumatic. Normocephalic. EYES: Pupils equal round and reactive. Extraocular motions intact. No scleral icterus. No injection or drainage. ENT: Nose without bleeding, purulent drainage. Throat without erythema, tonsillar hypertrophy or exudate. Airway patent. Wears hearing aids bilaterally, TMs appear clear when removed and then replaced. NECK: Trachea midline. Non tender CARDIOVASCULAR: Regular rate and rhythm, 2/6 systolic murmur left sternal border audible, no click or mechanical like sounds, gallops, or rubs. No sternal scar noted. RESPIRATORY: Clear to auscultation. Breath sounds equal bilaterally. No wheezes, rales, or rhonchi. GASTROINTESTINAL: Abdomen soft, non-tender, nondistended. EXTREMITIES: No edema or joint tenderness. BACK: Nontender without deformity or crepitance. No flank tenderness. NEURO: AOx3. Cranial nerves unremarkable, motor 5/5 bilateral upper extremities, motor 5/5 bilateral lower extremity, [id number] testing normal. SKIN: No rash or erythema of visible areas Initial Vital Signs Initial Vital Signs: Vital Signs Pulse Oximetry 97 10/09/23 12:04 Course Orders Ordered: ED Orders 10/09/23 12:00 Complete Blood Count AUTO DIFF Stat Comprehensive Metabolic Panel Stat Lipase Stat Magnesium Stat PTT Partial Thromboplastin Radames Stat Prothrombin Time INR Stat Troponin & CK Cardiac Panel Stat 10/09/23 12:02 XR chest 1V Stat EKG-12 Lead Stat 10/09/23 12:41 CT head/brain wo con Stat 10/09/23 15:11 Trop I [Troponin I] Stat Discontinued Medications Aspirin (Aspirin 81 Mg Chew Tab) 324 mg PO NOW ONE Stop: 10/09/23 12:03 Last Admin: 10/09/23 13:13 Dose: Not Given Documented By: CHELSEA Hydralazine HCl (Hydralazine 20 Mg/Ml Vial) 5 mg IV NOW ONE Stop: 10/09/23 14:28 Last Admin: 10/09/23 14:31 Dose: 5 mg Documented By: LUCIANO Hydralazine HCl (Hydralazine 20 Mg/Ml Vial) 10 mg IV NOW ONE Stop: 10/09/23 16:35 Last Admin: 10/09/23 16:39 Dose: 10 mg Documented By: LUCIANO Losartan Potassium (Losartan 50 Mg Tablet) 100 mg PO NOW ONE Stop: 10/09/23 15:10 Last Admin: 10/09/23 15:13 Dose: 100 mg Documented By: LUCIANO Vital Signs Vital signs: Vital Signs - 8 hr 10/09/23 12:30 10/09/23 12:31 10/09/23 12:31 Pulse Rate 50 L 50 L Respiratory Rate 19 17 Blood Pressure 174/76 H Pulse Oximetry 94 95 Oxygen Delivery Method 10/09/23 13:00 10/09/23 13:01 10/09/23 13:01 Pulse Rate 52 L 52 L Respiratory Rate 22 21 Blood Pressure 168/77 H Pulse Oximetry 96 96 Oxygen Delivery Method 10/09/23 13:30 10/09/23 13:33 10/09/23 13:33 Pulse Rate 69 58 L Respiratory Rate Blood Pressure 130/79 Pulse Oximetry 96 Oxygen Delivery Method 10/09/23 14:00 10/09/23 14:00 10/09/23 14:05 Pulse Rate 53 L 52 L Respiratory Rate 20 Blood Pressure 201/88 H Pulse Oximetry 95 95 Oxygen Delivery Method 10/09/23 14:05 10/09/23 14:07 10/09/23 14:07 Pulse Rate 55 L Respiratory Rate Blood Pressure 203/92 H 205/93 H Pulse Oximetry 95 Oxygen Delivery Method Room Air 10/09/23 14:30 10/09/23 14:31 10/09/23 14:31 Pulse Rate 51 L 54 L 51 L Respiratory Rate 21 23 Blood Pressure 191/85 H Pulse Oximetry 96 96 Oxygen Delivery Method Room Air 10/09/23 14:31 10/09/23 14:37 10/09/23 14:37 Pulse Rate 52 L Respiratory Rate 23 Blood Pressure 191/85 H 201/89 H Pulse Oximetry 96 Oxygen Delivery Method 10/09/23 14:40 10/09/23 14:40 10/09/23 14:50 Pulse Rate 52 L 54 L Respiratory Rate 20 23 Blood Pressure 204/93 H Pulse Oximetry 96 96 Oxygen Delivery Method Room Air 10/09/23 14:51 10/09/23 14:51 10/09/23 15:00 Pulse Rate 54 L 52 L Respiratory Rate 22 21 Blood Pressure 217/88 H Pulse Oximetry 96 96 Oxygen Delivery Method 10/09/23 15:01 10/09/23 15:01 10/09/23 15:08 Pulse Rate 53 L 52 L Respiratory Rate 21 Blood Pressure 205/102 H 205/102 H Pulse Oximetry 96 Oxygen Delivery Method 10/09/23 15:10 10/09/23 15:10 10/09/23 15:13 Pulse Rate 54 L 54 L Respiratory Rate 25 H Blood Pressure 212/99 H 212/99 H Pulse Oximetry 96 Oxygen Delivery Method 10/09/23 15:20 10/09/23 15:20 10/09/23 15:30 Pulse Rate 55 L 51 L Respiratory Rate 24 25 H Blood Pressure 217/99 H Pulse Oximetry 97 97 Oxygen Delivery Method 10/09/23 15:30 10/09/23 16:00 10/09/23 16:12 Pulse Rate 53 L Respiratory Rate 24 Blood Pressure 222/102 H 230/99 H Pulse Oximetry 97 Oxygen Delivery Method Room Air 10/09/23 16:12 10/09/23 16:14 10/09/23 16:14 Pulse Rate 54 L 53 L Respiratory Rate 24 Blood Pressure 226/100 H Pulse Oximetry 97 98 Oxygen Delivery Method Room Air 10/09/23 16:30 10/09/23 16:31 10/09/23 16:31 Pulse Rate 53 L 53 L Respiratory Rate 22 23 Blood Pressure 219/95 H Pulse Oximetry 97 97 Oxygen Delivery Method 10/09/23 16:39 10/09/23 16:40 10/09/23 16:40 Pulse Rate 55 L 54 L Respiratory Rate 23 Blood Pressure 214/95 H 214/95 H Pulse Oximetry 98 Oxygen Delivery Method 10/09/23 16:41 10/09/23 16:50 10/09/23 16:50 Pulse Rate 56 L Respiratory Rate 24 Blood Pressure 207/91 H 185/84 H Pulse Oximetry 97 Oxygen Delivery Method 10/09/23 17:00 10/09/23 17:00 10/09/23 17:10 Pulse Rate 57 L 63 Respiratory Rate 22 Blood Pressure 176/81 H Pulse Oximetry 97 97 Oxygen Delivery Method Room Air 10/09/23 17:10 10/09/23 17:20 10/09/23 17:20 Pulse Rate 57 L Respiratory Rate Blood Pressure 179/73 H 173/78 H Pulse Oximetry 97 Oxygen Delivery Method 10/09/23 17:23 10/09/23 17:30 10/09/23 17:30 Pulse Rate 57 L 56 L Respiratory Rate Blood Pressure 173/78 H 173/73 H Pulse Oximetry 97 Oxygen Delivery Method 10/09/23 17:40 10/09/23 17:40 10/09/23 17:50 Pulse Rate 60 Respiratory Rate Blood Pressure 194/85 H 188/80 H Pulse Oximetry 97 Oxygen Delivery Method Room Air 10/09/23 17:50 10/09/23 18:00 10/09/23 18:00 Pulse Rate 55 L 63 Respiratory Rate 24 Blood Pressure 173/78 H Pulse Oximetry 97 97 Oxygen Delivery Method 10/09/23 18:45 10/09/23 18:48 10/09/23 18:48 Pulse Rate 75 74 Respiratory Rate Blood Pressure 140/65 Pulse Oximetry 97 97 Oxygen Delivery Method Room Air 10/09/23 19:00 10/09/23 19:01 10/09/23 19:01 Pulse Rate 63 65 Respiratory Rate 26 H 30 H Blood Pressure 150/74 H Pulse Oximetry 96 96 Oxygen Delivery Method 10/09/23 19:30 10/09/23 19:30 10/09/23 20:00 Pulse Rate 58 L 57 L Respiratory Rate 23 28 H Blood Pressure 170/77 H Pulse Oximetry 96 96 Oxygen Delivery Method 10/09/23 20:01 10/09/23 20:01 Pulse Rate 59 L Respiratory Rate 30 H Blood Pressure 180/85 H Pulse Oximetry 95 Oxygen Delivery Method MDM - Syncope Lab Data Attestation: I reviewed the patient's lab results. 10/09/23 12:00 10/09/23 12:00 Labs: Lab Results 10/09/23 10/09/23 Range/Units 12:00 15:11 WBC 4.0 L (4.5-11.0) X10^3/uL RBC 4.63 (4.5-5.9) X10^6/uL Hgb 14.6 (13.5-17.5) g/dL Hct 43.0 (41-53) % MCV 92.9 (80-100) fL MCH 31.6 (26-34) PG MCHC 34.0 (30-36) % RDW 16.3 H (11.6-14.8) % Plt Count 124 L (150-400) X10^3/uL Neut % (Auto) 60.2 (50-75) % Lymph % (Auto) 35.7 (25-40) % [place] % (Auto) 1.4 L (3-14) % Eos % (Auto) 2.0 (2-4) % Baso % (Auto) 0.7 (0-2) % Neut # (Auto) 2400 (5183-7382) /uL Lymph # (Auto) 1400 (8809-3343) /uL [place] # (Auto) 100 (0-900) /uL Eos # (Auto) 100 (0-450) /uL Baso # (Auto) 0 (0-100) /uL PT 15.0 H (9.4-12.5) SECONDS INR 1.3 (0.9-1.3) APTT 39 H (25.1-36.5) SECONDS Sodium 137 (137-145) mmol/L Potassium 4.5 (3.4-5.1) mmol/L Chloride 104 (98-107) mmol/L Carbon Dioxide 24 (22-32) mmol/L BUN 30 H (9-20) mg/dL Creatinine 1.61 H (0.66-1.25) mg/dL Estimated GFR 43 L (>60) mL/min BUN/Creatinine Ratio 18.6 (6-22) Glucose 168 H (80-110) mg/dL Calcium 9.1 (8.4-10.2) mg/dL Magnesium 2.2 (1.6-2.3) mg/dL Total Bilirubin 1.0 (0.2-1.3) mg/dL AST 85 H (17-59) IU/L ALT 109 H (<50) IU/L Alkaline Phosphatase 159 H (38-126) U/L Total Creatine Kinase 39 L (55-170) U/L Troponin I < 0.012 < 0.012 (0.01-0.034) ng/mL Total Protein 7.4 (6.3-8.2) g/dL Albumin 4.0 (3.5-5.0) g/dL Globulin 3.4 (1.7-4.1) g/dL Albumin/Globulin Ratio 1.2 (1.0-2.8) Lipase 108 (23-300) U/L Imaging Data Chest x-ray: Radiologist's Impression: [address] [address] XRay Report Signed Patient: Nicanor Mccarthy MR#: [id number] : 1940 Acct:[id number] Age/Sex: 82 / M Date of Service: 10/09/23 Loc: ED Accession Number: [id number] Procedure: XR chest 1V Ordering Provider: Campos Nguyen MD PROCEDURE: XR CHEST 1V INDICATIONS: chest pain TECHNIQUE: One view of the chest was acquired. COMPARISON: [facility], CR, XR CHEST 1V, 09/09/2020, 17:57. [facility], CR, XR CHEST 1V, 06/23/2021, 16:35. FINDINGS: Surgical changes and devices: None. Lungs and pleura: Left midlung opacity. No pleural effusions or pneumothorax. Mediastinum: Mediastinal contours appear normal. Heart is enlarged. Bones and chest wall: No suspicious bony lesions. Overlying soft tissues appear unremarkable. IMPRESSION: Left midlung opacity most concerning for atelectasis. Recommend standard two view of the chest for definitive characterization when clinically feasible. Dictated by: Rachelle Hernandez MD, PhD on 10/09/2023 at 13:00 Approved by: Rachelle Hernandez MD, PhD on 10/09/2023 at 13:02 CT scan - head: Radiologist's Impression: Close Head CT (Signed) Julio Rodriguez - 10/09/23 Chest X-Ray (Signed) Rachelle Hernandez - 10/09/23 Launch?Image [address] [address] [address] Scan Report Signed Patient: Nicanor Mccarthy MR#: [id number] : 1940 Acct:[id number] Age/Sex: 82 / M Date of Service: 10/09/23 Loc: ED Accession Number: [id number] Procedure: CT head/brain wo con Ordering Provider: Campos Nguyen MD PROCEDURE: CT HEAD/BRAIN WO CON INDICATIONS: elederly, syncope TECHNIQUE: Noncontrast 4.5 mm thick angled axial sections acquired from the foramen magnum to the vertex, with coronal and sagittal reformats. For radiation dose reduction, the following was used: automated exposure control, adjustment of mA and/or kV according to patient size. COMPARISON: [facility], CT, CT HEAD/BRAIN WO CON, 10/02/2023, 15:57. FINDINGS: Image quality: Diagnostic. CSF spaces: Basal cisterns are patent. No extra-axial fluid collections. The ventricles are symmetric in size and shape. Brain: No intracranial bleeds or masses. There is cerebral volume loss for age, with resultant ventricular and sulcal prominence. There are periventricular and deep white matter chronic small vessel ischemic changes. There is intracranial internal carotid artery atherosclerosis. Skull and face: Right parietal occipital craniotomy. Calvarium and visualized facial bones appear intact, without suspicious lesions. Sinuses: Visualized sinuses and mastoids are clear. IMPRESSION: 1. No acute intracranial abnormalities. 2. Cerebral volume loss and chronic microvascular ischemic changes. Dictated by: Julio Rodriguez M.D. on 10/09/2023 at 14:09 Approved by: Julio Rodriguez M.D. on 10/09/2023 at 14:10 ECG Data Attestation: I personally reviewed and interpreted this ECG as follows: Interpretation: Sinus bradycardia with rate of 53, upsloping ST segments early Repol like pattern, no change in morphology from comparison study 10/02/2023. MA interval 176, QRS 116, QTC 465. MDM Narrative Medical decision making narrative: 82-year-old male with recent ED evaluation for TIA symptoms 10/02/[address] head and CTA head and neck vessel imaging, follow up MRI reportedly normal range through PCP Dr. Garcia, now with a syncopal episode noted per , with initial hypotension noted by EMS, fluids given, repeat blood pressure 140 systolic recovered. Possible vasovagal episode. Recent diarrhea. No black or red stools. IV fluids given. EKG without obvious ischemic change, normal rhythm and intervals. Possible hypovolemic syncope due to recent diarrhea. Clinic visit record from 10/05/2023 reviewed, Dr. Garcia, who made reference to interval MRI brain 10/03/2023 that was unchanged from a previous comparison study. On that no there is mentioned the patient having significant diarrhea. Also there was concern that Oncology felt there might be some Revlimid hypercoagulable effects from his multiple myeloma, that was discontinued 2 days prior. 1315, systolic blood pressure 160, still normal, received fluid bolus. He does not feel dizzy or weak. Currently asymptomatic. CT head results pending. CT head no acute changes 1400, phone call discussion with PCP Dr. Garcia, agrees with IV fluids in perhaps 2nd troponin, likely can be discharged home, echocardiogram scheduled for 11/05/2023, has had recent CT head and CTA neck vessels and brain MRI imaging unrevealing. Anticipate discharge home with follow up for echocardiogram Repeat troponin also negative. Most recent blood pressure 173/78, encouraged to take his carvedilol and his losartan and other chronic medications as prescribed. We discussed going home but / would feel more comfortable with further testing and monitoring, they are inquiring about admission, can discuss case with cross covering physician and or hospitalist. Could consider echocardiogram an expedited fashion, rather than waiting for scheduled procedure on 11/05/2023 if relevant Case discussed with Dr. Petersen, cross cover physician on-call for Dr. Garcia, who accepts patient for admission to observation Critical Care Time Critical Care Time Critical Care Time: Yes Total Critical Care Time: 31 Attestation: The high probability of a clinically significant, sudden or life threatening deterioration of the [cardiopulmonary] system(s) required my full and direct attention, intervention and personal management. The aggregate critical care time was [31] minutes. This time is in addition to time spent performing reported procedures but includes the following: [x] Data Review and interpretation [x] Patient assessment and monitoring of vital signs [x] Documentation [x] Medication orders and management Discharge Plan Departure Patient Disposition: Admitted as Observation Clinical Impression: Syncope, Heart murmur Admit Date/Time: 10/09/23 20:02 Admit Provider: Brie Tejada
--- NOTE | 2023-10-09 12:22 | PC.NURSE ---
VSS, pt denies any pain, pt reports feeling back to baseline
[2023-10-09 12:29] LABS: Add Manual Diff / Slide Review NO; Basophils Absolute Auto 0 /uL (0-100); Basophils Percent Auto 0.7 % (0-2); Eosinophils Absolute Auto 100 /uL (0-450); Hemoglobin 14.6 g/dL (13.5-17.5); Lymphocytes Absolute Auto 1400 /uL (1100-4500); Lymphocytes Percent Auto 35.7 % (25-40); Mean Corpuscular Hemoglobin 31.6 PG (26-34); Mean Corpuscular Volume 92.9 fL (80-100); Monocytes Absolute Auto 100 /uL (0-900); Monocytes Percent Auto 1.4 % (3-14); Neutrophils Absolute Auto 2400 /uL (1500-7000); Neutrophils Percent Auto 60.2 % (50-75); Platelet Count 124 X10^3/uL (150-400); Red Blood Cell Count 4.63 X10^6/uL (4.5-5.9); Red Cell Distribution Width 16.3 % (11.6-14.8)
[2023-10-09 12:35] LABS: INR 1.3 (0.9-1.3)
[2023-10-09 12:38] LABS: PTT Partial Thromboplastin Tim 39 SECONDS (25.1-36.5)
[2023-10-09 12:41] LABS: Alanine Aminotransferase 109 IU/L (<50); Albumin Globulin Ratio 1.2 (1.0-2.8); Alkaline Phosphatase 159 U/L (38-126); Aspartate Aminotransferase 85 IU/L (17-59); BUN Creatinine Ratio 18.6 (6-22); Blood Urea Nitrogen 30 mg/dL (9-20); Calcium 9.1 mg/dL (8.4-10.2); Carbon Dioxide 24 mmol/L (22-32); Chloride 104 mmol/L (98-107); Creatine Kinase 39 U/L (55-170); Estimated Glomerular Filt Rate 43 mL/min (>60); Globulin 3.4 g/dL (1.7-4.1); Glucose 168 mg/dL (80-110); Lipase 108 U/L (23-300); Magnesium 2.2 mg/dL (1.6-2.3); Sodium 137 mmol/L (137-145); Total Protein 7.4 g/dL (6.3-8.2)
--- NOTE | 2023-10-09 12:41 | DI.CT.S_ITS ---
PROCEDURE: CT HEAD/BRAIN WO CON INDICATIONS: elederly, syncope TECHNIQUE: Noncontrast 4.5 mm thick angled axial sections acquired from the foramen magnum to the vertex, with coronal and sagittal reformats. For radiation dose reduction, the following was used: automated exposure control, adjustment of mA and/or kV according to patient size. COMPARISON: [facility], CT, CT HEAD/BRAIN WO CON, 10/02/2023, 15:57. FINDINGS: Image quality: Diagnostic. CSF spaces: Basal cisterns are patent. No extra-axial fluid collections. The ventricles are symmetric in size and shape. Brain: No intracranial bleeds or masses. There is cerebral volume loss for age, with resultant ventricular and sulcal prominence. There are periventricular and deep white matter chronic small vessel ischemic changes. There is intracranial internal carotid artery atherosclerosis. Skull and face: Right parietal occipital craniotomy. Calvarium and visualized facial bones appear intact, without suspicious lesions. Sinuses: Visualized sinuses and mastoids are clear. IMPRESSION: 1. No acute intracranial abnormalities. 2. Cerebral volume loss and chronic microvascular ischemic changes. Dictated by: Julio Rodriguez M.D. on 10/09/2023 at 14:09 Approved by: Julio Rodriguez M.D. on 10/09/2023 at 14:10
[2023-10-09 12:52] LABS: Troponin I < 0.012 ng/mL (0.01-0.034)
[2023-10-09 12:54] LABS: HEMOLYSIS 76 (0-50); Potassium 4.5 mmol/L (3.4-5.1)
--- NOTE | 2023-10-09 14:23 | PC.NURSE ---
Pt reports a pressure like headache behind his right ear that began just prior to CT. Provider Patrick made aware.
[2023-10-09] MEDS: HYDRALAZINE 20 MG/ML VIAL 5 MG IV (14:31)
[2023-10-09] MEDS: LOSARTAN 50 MG TABLET 100 MG PO (15:13)
[2023-10-09 15:46] LABS: Troponin I < 0.012 ng/mL (0.01-0.034)
--- NOTE | 2023-10-09 16:15 | PC.NURSE ---
Patient BP continues to be elevated, 6/[address] Nguyen aware. Primary RN notified
[2023-10-09] MEDS: HYDRALAZINE 20 MG/ML VIAL 10 MG IV (16:39)
--- NOTE | 2023-10-09 20:35 | PC.NURSE ---
Report given to Dayana KOENIG to observation floor. This RN is covering primary RN, Wily.
--- NOTE | 2023-10-09 21:03 | DI.ECHO.S_ITS ---
[facility]+ [facility] : : [address] [place] : : [id number] : : Phone: [phone] Echocardiogram Report + + :Name: LANDRY CLAYTON Study Date: 10/10/2023 Height: 75 in : :Hospital ReadingLocation: Weight: 248 lb : : Gender: Male BSA: 2.4 m2 : :: 1940 Age: 82 yrs BP: 132/58 mmHg: :Reason For Study: TIA, SYNCOPE : :Ordering Physician: ISIDORO, : :JAYNA Performed By: Belén Milligan : :Referring: JAYNA CHAUDHRY : + + Interpretation Summary 1) Milldly increased left ventricular thickness (concentric) with normal size, normal wall motion, and normal systolic function (EF 55-60%). 2) Upper normal right ventricular size with normal function. 3) There is moderate aortic stenosis (valve area 1.1cm2, mean gradient 32mmHg, seerity raito 0.32). 4) There is mild to moderate aortic regurgitation. 5) Compared to the Echo done 06/24/2021, no significant change. Procedure: A two-dimensional transthoracic echocardiogram with color flow and Doppler was performed. The study quality was technically adequate. Comparison is made with the echocardiogram of 06/24/2021. The patient was in sinus bradycardia with heart rates between 49-55 bpm during the exam. Left Ventricle: The left ventricle is normal in size. There is mild concentric left ventricular hypertrophy. The ejection fraction is estimated to be 55-60%. Left ventricular systolic function appears normal without focal wall motion abnormalities. Right Ventricle: The right ventricle is at the upper limits of normal in size. The right ventricular systolic function is normal. Atria: The left atrial size is normal. The right atrium is normal in size. There is no Doppler evidence for an interatrial shunt. Mitral Valve: There is mild to moderate mitral annular calcification. The mitral valve leaflets are moderately calcified. The mitral valve mean gradient is 2.0 mmHg. There is mild mitral regurgitation. Aortic Valve: The aortic valve is moderately calcified. There is moderately reduced leaflet mobility. There is moderate aortic stenosis. The peak aortic velocity is 3.6 m/sec. The aortic valve mean gradient is 32 mmHg. The calculated aortic valve area is 1.1 cm2. There is mild to moderate aortic regurgitation. Tricuspid Valve: The tricuspid valve is normal in structure and function. There is trace tricuspid regurgitation. Pulmonic Valve: The pulmonic valve leaflets are thin and pliable; valve motion is normal. There is no pulmonic valvular regurgitation. Great Vessels: The aortic root is normal size. The dimensions of the ascending aorta are normal. The IVC is of normal diameter and collapses greater than 50% with a sniff. This suggests a low right atrial pressure of 3 mm Hg. Pericardium/ Pleura There is no pericardial effusion. There is no pleural effusion. MMode/2D Measurements & Calculations LVIDd: 5.6 cm LVOT diam: 2.1 cm LVIDs: 3.7 cm Ao root diam: 3.4 cm FS: 33.5 % asc Aorta Diam: 3.8 cm EPSS: 1.8 cm Ao Arch Diam (Prox Trans): 3.8 cm IVSd: 1.2 cm LVPWd: 1.1 cm LV patterson. diameter/BSA (cm/m^2): 2.3 LV sys. diameter/BSA (cm/m^2): 1.6 LA A2 area: 21.2 cm2 RA long axis: 5.6 cm LA A4 area: 23.2 cm2 RA area: 18.0 cm2 LA length (vol): 6.3 cm RA vol: 49.3 ml LA vol: 66.5 ml RA : 20.5 ml/m2 LA vol index: 27.6 ml/m2 IVC diam: 1.4 cm RVD1 (basal): 4.3 cm TAPSE: 1.8 cm Doppler Measurements & Calculations Ao V2 max: 353.7 cm/sec LVOT Max Perfecto: 107.5 cm/sec Ao V2 mean: 260.0 cm/sec LV V1 max P.6 mmHg Ao max P.8 mmHg LV V1 VTI: 27.6 cm Ao mean P.5 mmHg XAVIER(I,D): 1.1 cm2 Ao V2 VTI: 87.3 cm XAVIER(V,D): 1.1 cm2 sev ratio: 0.32 XAVIER indexed to BSA (cm^2/m^2): 0.46 AI P1/2t: 711.8 msec AI dec slope: 164.4 cm/sec2 MV E max perfecto: 80.4 cm/sec TR max perfecto: 241.2 cm/sec MV A max perfecto: 119.0 cm/sec TR max P.3 mmHg MV E/A: 0.68 PA V2 max: 89.0 cm/sec Med Peak E' Perfecto: 3.3 cm/sec PA V2 mean: 61.5 cm/sec E/E' med: 24.6 PA mean P.7 mmHg Lat Peak E' Perfecto: 4.5 cm/sec PA pr(Accel): 24.2 mmHg E/E' lat: 17.9 E/e' average: 21.3 MV dec time: 0.43 sec MVA(VTI): 2.1 cm2 MV V2 mean: 61.0 cm/sec SV(LVOT): 96.9 ml MV mean P.0 mmHg MV V2 VTI: 45.2 cm Reading Physician:09:32 AM
[2023-10-09] MEDS: TAMSULOSIN 0.4 MG CAPSULE PO (21:59)
[2023-10-09] MEDS: GABAPENTIN 100 MG CAPSULE 200 MG PO (21:59)
[2023-10-09] MEDS: carvediloL 12.5 MG TABLET 25 MG PO (23:16)
[2023-10-10] VITALS (13 sets, daily range): BP systolic 127–187; BP diastolic 58–81; PULSE 52–66; RESP 16–18; TEMP 36.2–36.4; O2SAT 93–99
--- NOTE | 2023-10-10 | DI.US.S_ITS ---
PROCEDURE: US ABD AORTA ANEURYSM SCREEN INDICATIONS: know AAA eval TECHNIQUE: Real time scanning was performed of the aorta and iliac arteries, with image documentation. COMPARISON: CT chest abdomen pelvis 08/17/2020. FINDINGS: Aorta: Proximal aortic diameter measures 2.2 x 2.2 cm. Mid-aorta measures 5.0 x 5.4 cm. Distal aortic diameter is 2.0 x 2.0 cm. Iliac arteries: Right common iliac artery measures 1.3 x 1.3 cm. Left common iliac artery measures 1.1 x 1.1 cm. IMPRESSION: Mid aortic aneurysm measuring 5.0 x 5.4 centimeters, previously measuring 4.[address] 08/17/2020. Recommend 3-6 month follow-up. Consider surgery/endovascular consultation. Approved by: Mag Centeno M.D.,Ph.D. on 10/10/2023 at 9:34
[2023-10-10] MEDS: LEVOTHYROXINE 137 MCG TABLET PO (05:51)
[2023-10-10 06:09] LABS: Alanine Aminotransferase 121 IU/L (<50); Albumin 3.5 g/dL (3.5-5.0); Albumin Globulin Ratio 1.2 (1.0-2.8); Alkaline Phosphatase 173 U/L (38-126); Aspartate Aminotransferase 79 IU/L (17-59); Bilirubin Total 0.7 mg/dL (0.2-1.3); Blood Urea Nitrogen 26 mg/dL (9-20); Calcium 8.5 mg/dL (8.4-10.2); Carbon Dioxide 23 mmol/L (22-32); Chloride 109 mmol/L (98-107); Estimated Glomerular Filt Rate 56 mL/min (>60); Glucose 101 mg/dL (80-110); HEMOLYSIS 16 (0-50); Potassium 4.1 mmol/L (3.4-5.1); Sodium 136 mmol/L (137-145); Total Protein 6.5 g/dL (6.3-8.2)
--- NOTE | 2023-10-10 06:43 | P.HP_ITS ---
History of Present Illness History of Present Illness Date Patient Seen: 10/10/23 Time Patient Seen: 06:44 Chief complaint: syncope Narrative: 82-year-old male admitted via the emergency department after having a syncopal or near syncopal spell at home. EMS was summoned initially found patient to be somewhat hypotensive although apparently also found blood pressure to almost immediately rebound to a normal state. Patient really has no memory of what was going on. He was preparing to go to [place] to me with his oncologist but really as he puts a could not find the ?motivation ?to get up out of his chair and get ready. Last thing he recalls as his spouse telling him that he better get moving or they will not make it to [place] in time. Next thing he remembers he was looking up at the faces of fire fighters as he was lying on the floor. He was not having headache he was not having chest pain he had not lost control of bowel or bladder function. Per patient's spouse she found him in the hallway standing motionless. He was unresponsive to verbal commands. She helped push him and or get him over to a chair where he sat down. He then began to sort of slumped over 1 side or the other she felt like he became somewhat diaphoretic and had some altered breathing pattern of some sort perhaps even a bit tachypneic. With that she elected to call EMS and they arrived finding him minimally tachypneic modestly hypotensive put him on the floor at which point he began to wake up and that is when his memory starts back up again. Apparently his blood pressure rebounded once his level of alertness increased rather rapidly back to normal and remained there until he became somewhat hypertensive during his ER evaluation ER evaluation pretty unremarkable. Perhaps some what volume depleted, based on the reported hypotension and very minimal bump in creatinine and BUN. Patient had negative workup otherwise including head CT chest x-ray etcetera. Patient was placed on some IV fluids, but family was uncomfortable taking him home Patient had recent ER evaluation for probable TIA with some speech related difficulties. During that evaluation had negative CT angiography of the head and neck as well as CT scan subsequently he was had a negative MRI of the brain. [facility] Medical History Plasmacytoma of bone Brain TIA Hypercalcemia Coronary artery disease involving [place] heart without angina pectoris Multiple myeloma Hearing loss (~2009) Stroke (~2017) History of kidney cancer (~2009) Cancer of skull Mixed hyperlipidemia Essential hypertension Acquired hypothyroidism AAA (abdominal aortic aneurysm) Personal history of stroke with current residual effects Renal cell carcinoma (~2009) Surgical History Anesthesia S/P wrist surgery S/P shoulder surgery S/p nephrectomy (~2009) Family History Mother Diabetes mellitus Father Heart disease Brother Multiple sclerosis Social History household members: spouse Smoking Status: Former smoker alcohol intake: current Meds Home Medications and Allergies Home Medications Medication Instructions Recorded Confirmed Type tamsulosin 0.4 mg capsule 0.4 mg PO BID 08/24/20 10/09/23 History atorvastatin 80 mg tablet 80 mg PO QPM #90 tabs 11/22/20 10/09/23 Rx carvedilol 25 mg tablet 25 mg PO BID 06/03/21 10/09/23 History gabapentin 100 mg capsule 200 mg PO BEDTIME 06/12/23 10/09/23 History levothyroxine 137 mcg tablet 137 mcg PO DAILY 06/12/23 10/09/23 History losartan 100 mg tablet 100 mg PO DAILY 06/12/23 10/09/23 History aspirin 81 mg capsule 81 mg PO DAILY 10/09/23 10/09/23 History Allergies Allergy/AdvReac Type Severity Reaction Status Date / Time metformin AdvReac Intermediate diarrhea Verified 10/05/23 16:25 Review of Systems Review of Systems ROS: Yes All systems reviewed with the patient and are negative except as otherwise documented Exam Vital Signs (past 8 hours): - 10/09/23 23:16 10/10/23 00:21 10/10/23 05:55 Temperature 97.6 F 97.5 F L Pulse Rate 68 66 60 Respiratory Rate 18 16 Blood Pressure 136/83 132/58 L 136/69 Pulse Oximetry 97 96 Oxygen Flow Rate 0 0 Oxygen Delivery Method Room Air Oxygen Flow Rate 0 Narrative Exam Narrative: Elderly male in no obvious distress sitting up in a bedside chair eating breakfast HEENT unremarkable Neck-no bruits no lymphadenopathy Lungs-clear good breath sounds Heart-regular rate and rhythm Abdomen-benign Neuro-alert oriented x3 no focal defects cranial nerves appear to be intact, gait not tested Objective Labs 10/09/23 12:00 10/10/23 05:40 Labs: Laboratory Results - last 24 hr 10/09/23 10/09/23 10/10/23 12:00 15:11 05:40 WBC 4.0 L RBC 4.63 Hgb 14.6 Hct 43.0 MCV 92.9 MCH 31.6 MCHC 34.0 RDW 16.3 H Plt Count 124 L Neut % (Auto) 60.2 Lymph % (Auto) 35.7 [place] % (Auto) 1.4 L Eos % (Auto) 2.0 Baso % (Auto) 0.7 Neut # (Auto) 2400 Lymph # (Auto) 1400 [place] # (Auto) 100 Eos # (Auto) 100 Baso # (Auto) 0 PT 15.0 H INR 1.3 APTT 39 H Sodium 137 136 L Potassium 4.5 4.1 Chloride 104 109 H Carbon Dioxide 24 23 BUN 30 H 26 H Creatinine 1.61 H 1.30 H Estimated GFR 43 L 56 L BUN/Creatinine Ratio 18.6 20.0 Glucose 168 H 101 Calcium 9.1 8.5 Magnesium 2.2 Total Bilirubin 1.0 0.7 AST 85 H 79 H ALT 109 H 121 H Alkaline Phosphatase 159 H 173 H Total Creatine Kinase 39 L Troponin I < 0.012 < 0.012 Total Protein 7.4 6.5 Albumin 4.0 3.5 Globulin 3.4 3.0 Albumin/Globulin Ratio 1.2 1.2 Lipase 108 Assessment & Plan Assessment & Plan narrative: 1. Syncope-etiology of patient's symptoms are unclear at this point. Really quite a normal workup both with his last ER visit for his TIA as well as this visit. After discussing patient's presentation with spouse including the multiple episodes he has had that are somewhat similar to this with just not a complete loss of consciousness but an altered level of consciousness and ability to communicate and perform tasks certainly seems to me like perhaps some level of partial seizure disorder is the most likely etiology. That can certainly produce an alteration in breathing pattern some degree of diaphoresis little more difficult to understand the transient hypotension Certainly still needs to have a cardiac evaluation including echocardiography and continued cardiac monitoring while hospitalized and as an outpatient. Unfortunately we do not have the ability to obtain an EEG at [facility] nor do we have Neurology consultation available. May empirically put him on gabapentin in effort to prevent further events while working to get him evaluated as an outpatient as well 2. Hypertension-patient is somewhat transiently hypertensive. Continue his usual antihypertensive meds. Unclear as to the extent and or nature of his hypotension in the feel before coming to the hospital but in the ER he was somewhat hypertensive etcetera. Overall no change in meds. Most recent numbers have been much better 3. Hypothyroidism-continue usual medication 4. History of plasmacytoma of bone later determined to have multiple myeloma. Currently off treatment for multiple myeloma. Based on blood work no evidence of activity with his multiple myeloma as a potential source of his symptoms 5. Coronary disease-patient with known coronary disease followed by cardiology at the [facility]. Again as above no evidence of active coronary ischemia 6. History of abdominal aortic aneurysm-last imaged in 2020. Plan for ultrasound least of the abdomen to re-evaluate that during this hospitalization. I do not really have a way to include issues with his abdominal aortic aneurysm as a possible source of his presenting symptoms, but given lack of other findings think it is worth evaluating this as well. 7. Code status-patient requests full code in the event of a sudden cardiac or respiratory arrest which is entirely appropriate 8. VTE prophylaxis-Lovenox would be entirely appropriate and has been ordered. Discussed my thoughts and plan of care both with patient as well as what patient's spouse. Quality VTE Deep Vein Thrombosis/Pulmonary Embolism Present on Admission: No [facility] PROFEE Charge Codes Initial inpatient/observation care: [id number]
[2023-10-10 09:03] LABS: Prolactin 9.1 ng/mL (3.7-17.9)
[2023-10-10] MEDS: ENOXAPARIN 30 MG/0.3 ML SYRINGE SUBCUT (09:52)
[2023-10-10] MEDS: ASPIRIN EC 81 MG TABLET PO (09:53)
[2023-10-10] MEDS: TAMSULOSIN 0.4 MG CAPSULE PO ×2 (09:53→20:39)
[2023-10-10] MEDS: LOSARTAN 50 MG TABLET 100 MG PO (09:53)
[2023-10-10] MEDS: carvediloL 12.5 MG TABLET 25 MG PO ×2 (09:53→20:39)
--- NOTE | 2023-10-10 15:11 | CM.DANOTE ---
Initial DCP Assessment Visit Note Reviewed EMR and team rounds for status updates. Went to meet with pt at bedside, however he was found to be sleeping comfortably at the time. Will plan to check in with him tomorrow am to discuss d/c needs and preferences. Pt lives independently at baseline with his in their own home here in [place]. will also transport him once he's medically cleared for d/c. Payor: Medicare PCP: Dr. Garcia Patient is a 82 year-old M who presented to the ED via EMS after experiencing a syncopal episode that presented more like a TIA-he became altered in mental status, slumped over in his chair, breathing changes. He has no memory of the incident, only that he woke up on the floor with EMS standing over him. He regained baseline mentation and functioning prior to his arrival to the ED. ED imaging was negative for any brain abnormalities, he is being recommended for a cardiac consult OP following his discharge due to other cardiac indicators noted in the ED. Pt was started on IV fluids, no other interventions are needed at this time. He will be monitored in OBS and likely d/c home on (tomorrow). DCP will continue to follow for any further evolving assistance/resource needs prior to his departure. Discharge Planning/Care Management Advanced directive, confirm from FAMILY Start: 10/09/23 21:12 Freq: Q24H Status: Active Protocol: Document 10/09/23 22:21 BR (Rec: 10/09/23 22:21 BR [id number]) Advance Directive, confirm on record Time 22:20 Person contacted Pt Copy received No CM Discharge Assessment Start: 10/10/23 14:37 Freq: Status: Active Protocol: Document 10/10/23 14:37 DPL (Rec: 10/10/23 15:11 DPL [id number]) Discharge Planning Assessment Assigned Silk Weaver BRII Ordoñez Advance Directives? Yes Advance Directives on File No History Provided By Patient,Medical Record Has Patient been admitted in last 30 No days? Prior Living Arrangements House Household Members spouse Type of transporation used prior to Relies on Others admit Independent with ADL's Yes Is patient alert and oriented? Yes Caregiver for Another No Comment OP Oncology Comment N/A Barriers to Discharge No Discharge Plan Home Transportation Arrangement Spouse Referrals Initiated None needed Whiteboard Updated in Patient Room with Yes name and ext. # of Silk Weaver Review Status In Process Please Provide Date Initial DC 10/10/23 Assessment Was Performed
[2023-10-10] MEDS: ATORVASTATIN 20 MG TABLET 80 MG PO (17:33)
[2023-10-10] MEDS: LABETALOL 20 MG/4 ML SYRINGE IV (18:27)
--- NOTE | 2023-10-10 18:37 | PC.NURSE ---
Dayshift: Called MD Gusman @ 1600 d/t hypertension and pt requesting update on discharge plan. No response. Called again 1710 d/t same. No response. Called MD Bonilla @ 1745 d/t same, who ordered BP meds and stated pt will be staying one more night for observation. IV labetalol given, notified ICU d/t pt's lower resting HR, already on tele. HR currently remaining stable in low 50s. Upon reassess, BP relatively unchanged, administered PO Amlodipine prior to shift change. Will continue to monitor.
[2023-10-10] MEDS: AMLODIPINE 5 MG TABLET 10 MG PO (18:58)
[2023-10-10] MEDS: GABAPENTIN 100 MG CAPSULE 200 MG PO (20:39)
[2023-10-11 04:40] VITALS: BP 139/63; PULSE 56; RESP 18; TEMP 36.5; O2SAT 94
[2023-10-11] MEDS: LEVOTHYROXINE 137 MCG TABLET PO (06:53)
--- NOTE | 2023-10-11 07:22 | PM.DS.1 ---
History of Present Illness History of Present Illness Date Patient Seen: 10/11/23 Time Patient Seen: 07:22 Chief complaint: syncope Narrative: 82-year-old male admitted via the emergency department after having a syncopal or near syncopal spell at home. EMS was summoned initially found patient to be somewhat hypotensive although apparently also found blood pressure to almost immediately rebound to a normal state. Patient really has no memory of what was going on. He was preparing to go to [place] to me with his oncologist but really as he puts a could not find the ?motivation ?to get up out of his chair and get ready. Last thing he recalls as his spouse telling him that he better get moving or they will not make it to [place] in time. Next thing he remembers he was looking up at the faces of fire fighters as he was lying on the floor. He was not having headache he was not having chest pain he had not lost control of bowel or bladder function. Per patient's spouse she found him in the hallway standing motionless. He was unresponsive to verbal commands. She helped push him and or get him over to a chair where he sat down. He then began to sort of slumped over 1 side or the other she felt like he became somewhat diaphoretic and had some altered breathing pattern of some sort perhaps even a bit tachypneic. With that she elected to call EMS and they arrived finding him minimally tachypneic modestly hypotensive put him on the floor at which point he began to wake up and that is when his memory starts back up again. Apparently his blood pressure rebounded once his level of alertness increased rather rapidly back to normal and remained there until he became somewhat hypertensive during his ER evaluation ER evaluation pretty unremarkable. Perhaps some what volume depleted, based on the reported hypotension and very minimal bump in creatinine and BUN. Patient had negative workup otherwise including head CT chest x-ray etcetera. Patient was placed on some IV fluids, but family was uncomfortable taking him home Patient had recent ER evaluation for probable TIA with some speech related difficulties. During that evaluation had negative CT angiography of the head and neck as well as CT scan subsequently he was had a negative MRI of the brain. Discharge Providers Provider Date of admission: 10/09/23 20:02 Discharge Date: 10/11/23 Primary care physician: Per Garcia MD Discharge provider: Per Garcia MD Summary Hospital Course Discharge Diagnosis: 1. Altered level of consciousness, resolved 2. 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 Multiple myeloma 4. Hypertension 5. Coronary artery disease, not active 6. Abdominal aortic aneurysm 7. History of renal cell carcinoma 8. Hyperlipidemia Hospital Course: Patient was admitted to the hospital with the above symptoms. Further workup including echocardiography and evaluation of his abdominal aortic aneurysm failed to reveal any etiology for his symptoms. He had no notable dysrhythmias on telemetry monitoring either. He had no hypotension fact with somewhat hypertensive requiring additional antihypertensive medication He had no further spells of any sort whether altered level of consciousness confusion syncope near-syncope etcetera In the end it was felt as though most likely his episodic events were consistent with a possible partial seizure disorder. Prolactin was obtained but unfortunately that was on a sample obtained more than 24 hours away from his most recent episode, and it being normal did not rule out possibility of seizure disorder. He was started on gabapentin 300 mg b.i.d. in effort to resolve these episodes while endeavoring to have him evaluated by Neurology including EEG as an outpatient (these services not available at this hospital). Evaluation of his abdominal aortic aneurysm did show evidence of enlargement now at just 5 cm or perhaps slightly more. Outpatient vascular energy will be consulted as well. Patient will continue follow-up regarding his multiple myeloma with the [facility] in his physicians there Patient will continue on additional antihypertensive therapy upon discharge as well Status at Discharge Cognitive/behavioral status at discharge: oriented Functional status at discharge: independent ambulation Overall status at discharge: patient is progressing back to baseline Time Spent with Patient Time spent: Less than 30 minutes Exam Vital Signs (past 8 hours): - 10/10/23 23:55 10/11/23 04:40 Temperature 97.3 F L 97.7 F Pulse Rate 59 L 56 L Respiratory Rate 16 18 Blood Pressure 150/64 H 139/63 Pulse Oximetry 93 94 Oxygen Flow Rate 0 0 Oxygen Delivery Method Room Air Oxygen Flow Rate 0 Objective Labs 10/09/23 12:00 10/10/23 05:40 Labs: Laboratory Results - last 24 hr 10/10/23 05:40 Prolactin 9.1 PFSH Medical History Plasmacytoma of bone Brain TIA Hypercalcemia Coronary artery disease involving [place] heart without angina pectoris Multiple myeloma Hearing loss (~2009) Stroke (~2017) History of kidney cancer (~2009) Cancer of skull Mixed hyperlipidemia Essential hypertension Acquired hypothyroidism AAA (abdominal aortic aneurysm) Personal history of stroke with current residual effects Renal cell carcinoma (~2009) Surgical History Anesthesia S/P wrist surgery S/P shoulder surgery S/p nephrectomy (~2009) Family History Mother Diabetes mellitus Father Heart disease Brother Multiple sclerosis Social History household members: spouse Smoking Status: Former smoker alcohol intake: current Discharge Assessment & Plan Assessment and Plan Plan of Treatment: Discharge home with the addition of amlodipine for blood pressure at 5 mg daily as well as gabapentin 300 mg b.i.d. for possible partial seizure disorder Plan for outpatient evaluation for his abdominal aortic aneurysm with vascular surgery Plan for outpatient evaluation of his possible seizure disorder with Neurology Discharge Plan Discharge Plan Patient Disposition: Home Discharge orders & Medications Prescriptions: New amlodipine 5 mg tablet 5 mg PO DAILY Qty: 90 0RF gabapentin 400 mg capsule 400 mg PO BID Qty: 180 3RF Continued atorvastatin 80 mg tablet 80 mg PO QPM Qty: 90 1RF tamsulosin 0.4 mg capsule 0.4 mg PO BID carvedilol 25 mg tablet 25 mg PO BID levothyroxine 137 mcg tablet 137 mcg PO DAILY losartan 100 mg tablet 100 mg PO DAILY aspirin 81 mg Capsule 81 mg PO DAILY [place] 75 mg tablet 75 mg PO DAILY Discontinued gabapentin 100 mg capsule 200 mg PO BEDTIME Follow up/Referrals: Per Garcia MD [Primary Care Provider] - 10/22/23 2:30 pm (Appt:10/21 @ 2:[address] Garcia please arrive 15 min prior to your scheduled appointment time ) Discharge Health Status Multidrug resistant organism: No MDRO Diet/Activity/Treatments Diet: Diet as Tolerated Visit Report/Discharge Packet Instructions: DI for Syncope in Adults (Fainting), High Blood Pressure, DI for Seizure Disorder -- Adult Stand Alone Forms: Patient Portal/API, Stroke Signs & Symptoms Discharge Data Primary Care Provider: Per Garcia Attending Provider: Per Garcia Admit Date/Time: 10/09/23 20:02 Quality VTE Deep Vein Thrombosis/Pulmonary Embolism Present on Admission: No [facility] PROFEE Charge Codes Discharge inpatient/observation: [id number]
[2023-10-11 08:00] VITALS: BP 126/69; PULSE 65; RESP 16; TEMP 36.2; O2SAT 98
[2023-10-11 09:23] VITALS: BP 144/51; PULSE 66
[2023-10-11] MEDS: LOSARTAN 50 MG TABLET 100 MG PO (09:23)
[2023-10-11 09:24] VITALS: BP 144/51; PULSE 66
[2023-10-11] MEDS: AMLODIPINE 5 MG TABLET PO (09:24)
[2023-10-11] MEDS: GABAPENTIN 300 MG CAPSULE PO (09:24)
[2023-10-11] MEDS: ASPIRIN EC 81 MG TABLET PO (09:24)
[2023-10-11] MEDS: carvediloL 12.5 MG TABLET 25 MG PO (09:24)
[2023-10-11] MEDS: TAMSULOSIN 0.4 MG CAPSULE PO (09:27)
--- NOTE | 2023-10-11 11:35 | PC.NURSE ---
Dayshift: Provided discharge education with with pt and SO regarding medications and follow up. Answered all questions. All belongings with patient. PIV and tele d/c'ed, PCT Annita escorted pt to exit via wheelchair with SO.
== END 2023-10-11 10:15 | disposition home or self-care (01) ==
LOC: ED 19:38 → AC 20:03
PROVIDERS: Admitting Provider Family Medicine; Emergency Provider Emergency Medicine; PCP Internal Medicine; Visit Provider Internal Medicine
DX: R40.4 Transient alteration of awareness (principal); I10 Essential (primary) hypertension; E03.9 Hypothyroidism, unspecified; I71.40 Abdominal aortic aneurysm, without rupture, unspecified; C90.00 Multiple myeloma not having achieved remission; Z85.528 Personal history of other malignant neoplasm of kidney; Z87.891 Personal history of nicotine dependence
CPT/HCPCS: 36415; 70450; 71045; 76706; 80053; 82550; 83690; 83735; 84146; 84484; 85025; 85610; 85730; 93005; 93306; 96372; 96374; 96375; 96376; 99223; 99238; 99284; 99291; G0378; J0360; J1650

== ENCOUNTER → 2023-10-17 13:27 | Outpatient (CLI) | payer MEDICARE, SELFPAY ==
[2023-10-02 17:11] VITALS: BMI 34.6
[2023-10-09 20:06] VITALS: BMI 31.1
== END ==
LOC: CAR 13:28
PROVIDERS: PCP Internal Medicine; Referring Provider Internal Medicine; Visit Provider Internal Medicine
DX: Z86.73 Personal history of transient ischemic attack (TIA), and cerebral infarction without residual deficits (principal)
CPT/HCPCS: 93246

== ENCOUNTER → 2023-10-25 13:31 | Outpatient (CLI) | payer MEDICARE, SELFPAY ==
[2023-10-09 20:06] VITALS: BMI 31.1
[2023-10-25 15:11] LABS: Alanine Aminotransferase 107 IU/L (<50); Albumin 3.6 g/dL (3.5-5.0); Albumin Globulin Ratio 0.9 (1.0-2.8); Alkaline Phosphatase 627 U/L (38-126); Aspartate Aminotransferase 77 IU/L (17-59); BUN Creatinine Ratio 18.1 (6-22); Bilirubin Total 2.6 mg/dL (0.2-1.3); Blood Urea Nitrogen 27 mg/dL (9-20); Calcium 8.7 mg/dL (8.4-10.2); Carbon Dioxide 21 mmol/L (22-32); Chloride 107 mmol/L (98-107); Estimated Glomerular Filt Rate 47 mL/min (>60); Globulin 3.8 g/dL (1.7-4.1); Glucose 151 mg/dL (80-110); HEMOLYSIS < 15 (0-50); Potassium 4.1 mmol/L (3.4-5.1); Sodium 137 mmol/L (137-145); Total Protein 7.4 g/dL (6.3-8.2)
[2023-10-25 21:18] LABS: Hematocrit 39.6 % (41-53); Hemoglobin 13.4 g/dL (13.5-17.5); Mean Corpuscular HGB Conc 33.9 % (30-36); Mean Corpuscular Hemoglobin 31.5 PG (26-34); Mean Corpuscular Volume 93.1 fL (80-100); Platelet Count 77 X10^3/uL (150-400); Red Blood Cell Count 4.25 X10^6/uL (4.5-5.9)
[2023-10-25 21:35] LABS: Add Manual Diff / Slide Review YES; White Blood Cell Count 1.8 X10^3/uL (4.5-11.0)
[2023-10-25 22:57] LABS: Neutrophils Absolute Manual 756 /uL (3000-5900); RBC Morphology Normal Morphology; Total Cells Counted 100
== END ==
PROVIDERS: PCP Internal Medicine; Referring Provider Internal Medicine Hematology & Oncology; Visit Provider Internal Medicine Hematology & Oncology
DX: C90.01 Multiple myeloma in remission (principal)
CPT/HCPCS: 36415; 80053; 85007; 85025

== ENCOUNTER → 2023-11-20 08:43 | Outpatient (CLI) | payer MEDICARE, SELFPAY ==
[2023-10-09 20:06] VITALS: BMI 31.1
[2023-11-20 10:00] LABS: Hematocrit 26.4 % (41-53); Hemoglobin 9.1 g/dL (13.5-17.5); Mean Corpuscular HGB Conc 34.5 % (30-36); Mean Corpuscular Hemoglobin 33.7 PG (26-34); Mean Corpuscular Volume 97.5 fL (80-100); Platelet Count 146 X10^3/uL (150-400); Red Blood Cell Count 2.71 X10^6/uL (4.5-5.9); Red Cell Distribution Width 23.6 % (11.6-14.8)
[2023-11-20 10:04] LABS: Add Manual Diff / Slide Review YES
[2023-11-20 10:08] LABS: White Blood Cell Count 1.3 X10^3/uL (4.5-11.0)
[2023-11-20 10:22] LABS: Neutrophils Absolute Manual 416 /uL (3000-5900); Total Cells Counted 50
[2023-11-20 10:24] LABS: Anisocytosis 2+
[2023-11-20 10:25] LABS: Ovalocytes 1+
[2023-11-20 10:26] LABS: Macrocytosis 1+
[2023-11-20 11:47] LABS: Alanine Aminotransferase 39 IU/L (<50); Albumin 3.4 g/dL (3.5-5.0); Albumin Globulin Ratio 1.1 (1.0-2.8); Alkaline Phosphatase 332 U/L (38-126); Aspartate Aminotransferase 28 IU/L (17-59); Bilirubin Total 0.7 mg/dL (0.2-1.3); Blood Urea Nitrogen 19 mg/dL (9-20); Calcium 8.8 mg/dL (8.4-10.2); Carbon Dioxide 22 mmol/L (22-32); Chloride 106 mmol/L (98-107); Estimated Glomerular Filt Rate > 60 mL/min (>60); Glucose 119 mg/dL (80-110); HEMOLYSIS < 15 (0-50); Lactate Dehydrogenase 66 U/L (120-246); Potassium 4.4 mmol/L (3.4-5.1); Sodium 135 mmol/L (137-145); Total Protein 6.4 g/dL (6.3-8.2)
== END ==
LOC: LAB 08:45
PROVIDERS: PCP Internal Medicine; Referring Provider Nurse Practitioner Adult Health; Visit Provider Nurse Practitioner Adult Health
DX: C91.00 Acute lymphoblastic leukemia not having achieved remission (principal)
CPT/HCPCS: 36415; 80053; 83615; 85007; 85025

== ENCOUNTER → 2023-11-27 08:04 | Outpatient (CLI) | payer MEDICARE, SELFPAY ==
[2023-10-09 20:06] VITALS: BMI 31.1
[2023-11-27 09:34] LABS: Hematocrit 27.5 % (41-53); Hemoglobin 9.6 g/dL (13.5-17.5); Mean Corpuscular HGB Conc 34.9 % (30-36); Mean Corpuscular Hemoglobin 34.6 PG (26-34); Mean Corpuscular Volume 99.2 fL (80-100); Platelet Count 144 X10^3/uL (150-400); Red Blood Cell Count 2.77 X10^6/uL (4.5-5.9); Red Cell Distribution Width 24.1 % (11.6-14.8)
[2023-11-27 09:43] LABS: Add Manual Diff / Slide Review YES; White Blood Cell Count 1.8 X10^3/uL (4.5-11.0)
[2023-11-27 09:56] LABS: Neutrophils Absolute Manual 666 /uL (3000-5900); RBC Morphology Normal Morphology; Total Cells Counted 100
[2023-11-27 10:03] LABS: Alanine Aminotransferase 41 IU/L (<50); Albumin 3.5 g/dL (3.5-5.0); Albumin Globulin Ratio 1.2 (1.0-2.8); Alkaline Phosphatase 227 U/L (38-126); Aspartate Aminotransferase 32 IU/L (17-59); BUN Creatinine Ratio 20.7 (6-22); Bilirubin Total 0.6 mg/dL (0.2-1.3); Blood Urea Nitrogen 23 mg/dL (9-20); Calcium 8.7 mg/dL (8.4-10.2); Carbon Dioxide 20 mmol/L (22-32); Chloride 106 mmol/L (98-107); Estimated Glomerular Filt Rate > 60 mL/min (>60); Globulin 2.9 g/dL (1.7-4.1); Glucose 154 mg/dL (80-110); HEMOLYSIS < 15 (0-50); Lactate Dehydrogenase 65 U/L (120-246); Potassium 4.5 mmol/L (3.4-5.1); Sodium 135 mmol/L (137-145); Total Protein 6.4 g/dL (6.3-8.2)
== END ==
PROVIDERS: Internal Medicine; PCP Internal Medicine; Referring Provider Nurse Practitioner Adult Health; Visit Provider Nurse Practitioner Adult Health
DX: C91.00 Acute lymphoblastic leukemia not having achieved remission (principal)
CPT/HCPCS: 36415; 80053; 83615; 85007; 85025